=== PATIENT | female | born 1955 | race Caucasian/White ===

== ENCOUNTER → 2016-06-10 | Outpatient (CLI) | payer OTHER ==
[2016-06-10 13:39] LABS: BLOOD UREA NITROGEN 16 mg/dl (7-18); BUN/CREATININE RATIO 19.7 (10-20); CALCIUM 9.6 mg/dl (8.5-10.1); CARBON DIOXIDE 27 mmol/L (21-32); CHLORIDE 103 mmol/L (98-107); CREATININE 0.79 mg/dl (0.60-1.20); GLUCOSE 126 mg/dl (70-99); POTASSIUM 3.7 mmol/L (3.5-5.1); SODIUM 141 mmol/L (136-145)
[2016-06-10 14:06] LABS: ESTIMATED AVERAGE GLUCOSE 148 mg/dl; HA1C FLAG Normal (Normal)
== END | disposition home or self-care (01) ==
LOC: C.LABMFLN 10:57
PROVIDERS: ATTEND Family Medicine
DX: E11.49 Type 2 diabetes mellitus with other diabetic neurological complication (principal)

== ENCOUNTER → 2016-09-16 | Outpatient (CLI) | payer OTHER ==
[2016-09-16 13:54] LABS: ESTIMATED AVERAGE GLUCOSE 163 mg/dl; HA1C FLAG Normal (Normal)
[2016-09-16 16:11] LABS: ALB/GLOB RATIO 1.1 (0.9-2); ALKALINE PHOSPHATASE 65 U/L (45-117); ALT/SGPT 61 U/L (12-78); AST/SGOT 50 U/L (15-37); BLOOD UREA NITROGEN 11 mg/dl (7-18); BUN/CREATININE RATIO 13.2 (10-20); CALCIUM 9.3 mg/dl (8.5-10.1); CARBON DIOXIDE 23 mmol/L (21-32); CHLORIDE 108 mmol/L (98-107); CHOLESTEROL 110 mg/dl (0-200); CHOLESTEROL/HDL RATIO 2.8; CREATININE 0.81 mg/dl (0.60-1.20); GLUCOSE 130 mg/dl (70-99); HDL CHOLESTEROL 39 mg/dl; POTASSIUM 4.1 mmol/L (3.5-5.1); SODIUM 140 mmol/L (136-145)
[2016-09-16 16:19] LABS: LDL CHOLESTEROL CALCULATED 44 mg/dl; TRIGLYCERIDES 136 mg/dl (0-150); VERY LOW DENSITY LIPOPROT CALC 27 mg/dl
== END | disposition home or self-care (01) ==
LOC: C.LABMFLN 13:52
PROVIDERS: ATTEND Family Medicine
DX: E78.2 Mixed hyperlipidemia (principal); I10 Essential (primary) hypertension; E11.49 Type 2 diabetes mellitus with other diabetic neurological complication

== ENCOUNTER → 2017-01-05 | Outpatient (CLI) | payer OTHER ==
[2017-01-05 14:37] LABS: ESTIMATED AVERAGE GLUCOSE 154 mg/dl; HA1C FLAG Normal (Normal)
[2017-01-05 14:44] LABS: ALT/SGPT 57 U/L (12-78); BLOOD UREA NITROGEN 12 mg/dl (7-18); BUN/CREATININE RATIO 14.4 (10-20); CALCIUM 9.2 mg/dl (8.5-10.1); CARBON DIOXIDE 26 mmol/L (21-32); CHLORIDE 107 mmol/L (98-107); CHOLESTEROL 130 mg/dl (0-200); CREATININE 0.83 mg/dl (0.60-1.20); GLUCOSE 166 mg/dl (70-99); POTASSIUM 3.9 mmol/L (3.5-5.1); SODIUM 141 mmol/L (136-145)
[2017-01-05 14:46] LABS: ALKALINE PHOSPHATASE 70 U/L (45-117); AST/SGOT 49 U/L (15-37); CHOLESTEROL/HDL RATIO 3.1; HDL CHOLESTEROL 42 mg/dl; LDL CHOLESTEROL CALCULATED 56 mg/dl; TRIGLYCERIDES 159 mg/dl (0-150); VERY LOW DENSITY LIPOPROT CALC 32 mg/dl
== END | disposition home or self-care (01) ==
LOC: C.LABMFLN 08:14
PROVIDERS: ATTEND Family Medicine
DX: I10 Essential (primary) hypertension (principal); E11.49 Type 2 diabetes mellitus with other diabetic neurological complication

== ENCOUNTER → 2017-04-13 | Outpatient (CLI) | payer OTHER ==
[2017-04-13 13:44] LABS: ESTIMATED AVERAGE GLUCOSE 163 mg/dl; HA1C FLAG Normal (Normal)
[2017-04-13 13:54] LABS: BLOOD UREA NITROGEN 12 mg/dl (7-18); BUN/CREATININE RATIO 13.3 (10-20); CALCIUM 9.8 mg/dl (8.5-10.1); CARBON DIOXIDE 24 mmol/L (21-32); CHLORIDE 104 mmol/L (98-107); CREATININE 0.92 mg/dl (0.60-1.20); GLUCOSE 153 mg/dl (70-99); POTASSIUM 3.8 mmol/L (3.5-5.1); SODIUM 139 mmol/L (136-145)
== END | disposition home or self-care (01) ==
LOC: C.LABMFLN 09:34
PROVIDERS: ATTEND Family Medicine
DX: E11.49 Type 2 diabetes mellitus with other diabetic neurological complication (principal)

== ENCOUNTER → 2017-05-11 | Outpatient (CLI) | payer OTHER | END | disposition home or self-care (01) | LOC: C.LABMFLN 10:04 | PROVIDERS: ATTEND Family Medicine | DX: R30.0 Dysuria (principal) ==

== ENCOUNTER → 2017-07-31 | Outpatient (CLI) | payer OTHER ==
[2017-07-31 12:52] LABS: ALBUMIN 4.1 gm/dl (3.4-5.0); ALT/SGPT 50 U/L (12-78); BLOOD UREA NITROGEN 14 mg/dl (7-18); CALCIUM 9.3 mg/dl (8.5-10.1); CARBON DIOXIDE 25 mmol/L (21-32); CHOLESTEROL 109 mg/dl (0-200); CREATININE 0.79 mg/dl (0.60-1.20); GLUCOSE 131 mg/dl (70-99); SODIUM 138 mmol/L (136-145)
[2017-07-31 12:56] LABS: ALKALINE PHOSPHATASE 65 U/L (45-117); AST/SGOT 50 U/L (15-37); LDL CHOLESTEROL CALCULATED 47 mg/dl; TOTAL PROTEIN 7.8 gm/dl (6.4-8.2)
[2017-07-31 12:59] LABS: HEMOGLOBIN A1C 7.2 % (4.5-5.6)
== END | disposition home or self-care (01) ==
LOC: C.LABMFLN 09:01
PROVIDERS: ATTEND Family Medicine
DX: I10 Essential (primary) hypertension (principal); E11.49 Type 2 diabetes mellitus with other diabetic neurological complication

== ENCOUNTER 2021-05-02 09:44 | Inpatient (IN) ==
[2021-05-02 13:17] LABS: Influenza A virus by PCR Negative (Neg); Influenza B virus by PCR Negative (Neg); RSV by PCR Negative (Neg)
[2021-05-02 13:22] LABS: SARS CoV2 RNA(COVID-19) InHosp POSITIVE (Negative)
[2021-05-02] MEDS ORDERED: dexAMETHasone**PF** 10 MG/ML VIAL IV ONE (14:03)
--- NOTE | 2021-05-02 14:06 | Emergency Department Note ---
Impression & Plan Respiratory failure, COVID-19, Hypoxia, Leukopenia, Thrombocytopenia, Neutropenia ED Provider Note NAME: SAAD MCKEON AGE: 65 SEX: F : 1955 ARRIVES VIA: Walk-In INFORMANT: Patient ED PROVIDER(S): Louis Jane DO CHIEF COMPLAINT: shortness of breath and cough HPI: Patient is a 65-year-old female who presents to the ER for symptoms that started this past weekend. She admits to cough and congestion as well as loss of taste and smell. Shortness of breath has been significantly worsened. She denies any chest pain. No belly pain, nausea, vomiting, or diarrhea. She feels very weak. No dysuria, urgency, or frequency. No other exacerbating or r emitting factors. She is not vaccinated. ROS: See above HPI for pertinent positives & negatives. A total of 10 systems reviewed and were otherwise negative. PAST MEDICAL HISTORY:See Below PAST SURGICAL HISTORY:See Below FAMILY HISTORY:See Below SOCIAL HISTORY:See Below HOME MEDICATIONS:See Below ALLERGIES:See Below VITALS:See Below PHYSICAL EXAMINATION: GENERAL: Sitting up in bed, alert, disheveled, chronically ill-appearing EYE EXAM: normal conjunctiva. OROPHARYNX: no exudate, no erythema, lips, buccal mucosa, and tongue normal and mucous membranes are moist NECK: supple, no nuchal rigidity, no adenopathy, non-tender LUNGS: Clear to auscultation. Normal chest wall mechanics HEART: no murmurs, S1 normal and S2 normal ABDOMEN: abdomen soft, non-tender, normo-active bowel sounds, no masses, no rebound or guarding. UPPER EXTREMITIES: upper extremities are grossly normal. LOWER EXTREMITIES: No pitting edema. Calves are equal bilateral NEURO EXAM: Normal sensorium, cranial nerves II-XII grossly intact, normal speech, no gross weakness of arms, no gross weakness of legs. MEDICAL DECISION MAKING: Patient is a 65-year-old female who presents ER for upper respiratory symptoms who is Covid positive. She is found to be leukopenic and neutropenic with a th rombocytopenia of 88. Moderate neutropenia at 600. BMP was fairly unremarkable. LFTs bilirubin is unremarkable as well. Lipase was normal. Troponin was negative. Patient was Covid positive. She was hypoxic and remained on nasal cannula throughout her stay. She is given fluids and steroids. Chest x-ray was unremarkable. Patient was updated bedside. She is admitted for further work-up for her Covid hypoxic. Triage Nursing notes reviewed. Limited review of prior medical records performed Vital Signs: reviewed and remarkable for hypotensive and hypoxic Differential diagnosis: Differential diagnoses includes but is not limited to pneumonia, bronchitis, COPD/Asthma exacerbation, pneumothorax, pulmonary embolism, congestive heart lily lure, acute coronary syndrome ER treatment provided: See below Diagnostics interpreted by me: ECG: Sinus rhythm rate of 103 Normal axis No PVCs T wave version V1 QTC 421 Cardiac Monitoring: An order was placed for continuous cardiac monitoring. The monitor shows a rate of 101 with sinus rhythm. Laboratory studies: As stated above and show below. Imaging studies: Chest x-ray with pulmonary vascular congestion Consultation(s): Discussed with hospitalist for further evaluation Procedures: none Critical Care: None Past Med/Surg History Medical History Acid reflux Anxiety and depression Benign essential hypertension Blood in stool Cervical radiculopathy Chronic anemia Chronic back pain Chronic pain COVID-19 virus antibody negative Diabetes mellitus type 2 with neurological manifestations Diabetic peripheral neuropathy Generalized osteoarthritis History of kidney stones History of skin cancer Mixed hyperlipidemia Morbid obesity Pernicious anemia Type 2 diabetes mellitus Surgical History History of ankle surgery History of back surgery History of carpal tunnel release of both wrists History of delivery History of cholecystectomy History of colonoscopy Hx of esophagogastroduodenoscopy Family History Sister Family history of diabetes mellitus Father Family history of diabetes mellitus Other Family history of colon cancer in father Social History Smoking Status: Never smoker Second Hand Exposure: No; Hx Alcohol Use: No Hx Substance Use: No Preferred Language: Ghanaian Communication Ability: Effective Visual Impairment: No Limitations Hearing Ability: Normal 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: No Beliefs That Will Affect Care: None marital status: Current Living Situation: Spouse current occupational status: disabled Feels Safe at Home: Yes Childhood Exposure to Second-Hand Smoke: Yes caffeine: Yes during the past year weight has: remained stable Dental Care, Regularly: No Physical Activity Frequency: Does not Exercise Seatbelt Use: always Sunscreen Use: Yes Assistive Devices: Denture - Upper, Denture - Lower and Glasses Allergies Allergies Allergy/AdvReac Type Severity Reaction Status Date / Time Sulfa (Sulfonamide Allergy Unknown throat Verified 04/29/21 15:45 Antibiotics) goes shut acetaminophen [From Percocet] AdvReac Unknown n&v Verified 04/29/21 15:45 Home Meds Home Medications Medication Instructions Recorded Confirmed cetirizine 10 mg tablet 10 mg PO QAM tab 12/26/18 05/02/21 vitamin B complex (B 1 tab PO DAILY 01/30/21 05/02/21 Complex-Vitamin B12) cyanocobalamin (vitamin B-12) 50 1,000 mcg PO DAILY 03/01/21 05/02/21 mcg tablet (Vitamin B-12) mirtazapine 45 mg tablet 45 mg PO QPM 03/01/21 05/02/21 omeprazole 40 mg capsule,delayed 40 mg PO QAM 03/01/21 05/02/21 release valsartan 320 1 tab PO QAM 03/01/21 05/02/21 mg-hydrochlorothiazide 12.5 mg tablet aspirin 81 mg capsule 81 mg PO QAM 03/26/21 05/02/21 duloxetine 30 mg capsule,delayed 30 mg PO HS 03/26/21 05/02/21 release (Cymbalta) glimepiride 1 mg tablet 1 mg PO QPM 03/26/21 05/02/21 melatonin 10 mg tablet 10 mg PO HS 03/26/21 05/02/21 Previous Rx's Medication Instructions Recorded fluticasone propionate 50 2 spray INTRANASAL DAILY #18.2 gm 05/08/20 mcg/actuation nasal spray,suspension potassium chloride 10 mEq 20 meq PO BID #120 cap 09/10/20 capsule,extended release hydrochlorothiazide 12.5 mg tablet 12.5 mg PO QAM #30 tab 12/04/20 ascorbic acid (vitamin C) 250 mg 250 mg PO BID #60 tab 02/22/21 tablet lovastatin 20 mg tablet 20 mg PO HS #90 tab 03/07/21 metformin 1,000 mg tablet 1,000 mg PO BID #180 tab 04/10/21 hydrocodone 7.5 mg-acetaminophen 1 tab PO QID PRN #120 tab 04/29/21 325 mg tablet Results & Data (ED) Vital Signs Vital Signs - 24 hr 05/02/21 09:53 05/02/21 13:41 05/02/21 13:54 Temperature 36.8 C Temperature Source Temporal Artery Scan Pulse Rate 109 H Pulse Rate [Apical] 94 H Pulse Rhythm [Apical] Regular Pulse Strength [Apical] Normal Respiratory Rate 18 22 Respiratory Effort / Characteristics Labored Respiratory Depth Normal Blood Pressure 157/78 H Blood Pressure [Right Arm] 161/82 H Blood Pressure Mean 104 Blood Pressure Mean [Right Arm] 108 Blood Pressure Position [Right Arm] Sitting Pulse Oximetry 92 91 88 L Oxygen Delivery Method Room Air Room Air Room Air Oxygen Flow Rate Sepsis Recent Fever Within 48 Hours No Sepsis New/Unexplained Change in Mental Status No Sepsis Action Taken by Nursing No Action Required 05/02/21 13:58 05/02/21 17:00 Temperature Temperature Source Pulse Rate Pulse Rate [Apical] 102 H Pulse Rhythm [Apical] Pulse Strength [Apical] Respiratory Rate 22 Respiratory Effort / Characteristics Respiratory Depth Blood Pressure Blood Pressure [Right Arm] 172/90 H Blood Pressure Mean Blood Pressure Mean [Right Arm] 117 Blood Pressure Position [Right Arm] Pulse Oximetry 93 Oxygen Delivery Method Nasal Cannula Room Air Oxygen Flow Rate 2 Sepsis Recent Fever Within 48 Hours Sepsis New/Unexplained Change in Mental Status Sepsis Action Taken by Nursing Laboratory Data Result diagrams: 05/02/21 15:26 05/02/21 14:28 Lab Results 05/02/21 05/02/21 05/02/21 Range/Units 10:05 14:28 14:28 WBC Cancelled RBC Cancelled Hgb Cancelled Hct Cancelled MCV Cancelled MCH Cancelled MCHC Cancelled RDW Std Deviation Cancelled RDW Coeff of Ashlee Cancelled Plt Count Cancelled MPV Cancelled Immature Gran % (Auto) Cancelled Neut % (Auto) Cancelled Lymph % (Auto) Cancelled [place] % (Auto) Cancelled Eos % (Auto) Cancelled Baso % (Auto) Cancelled Neut # (Auto) Cancelled Lymph # (Auto) Cancelled [place] # (Auto) Cancelled Eos # (Auto) Cancelled Baso # (Auto) Cancelled Immature Gran # (Auto) Cancelled Absolute Nucleated RBC Cancelled Nucleated RBC % (auto) Cancelled Neutrophils % (Manual) Cancelled Band Neutrophils % Cancelled Lymphocytes % (Manual) Cancelled Prolymphocyte % Cancelled Reactive Lymphs % (Man) Cancelled Monocytes % (Manual) Cancelled Eosinophils % (Manual) Cancelled Basophils % (Manual) Cancelled Metamyelocytes % (Man) Cancelled Myelocytes % (Man) Cancelled Promyelocytes % (Man) Cancelled Blast Cells % (Manual) Cancelled Plasma Cell % (Manual) Cancelled Other Cells % Cancelled Nucleated RBC % Cancelled Neutrophils # (Manual) Cancelled Band Neutrophils # Cancelled Total Absolute Neuts Cancelled Lymphocytes # (Manual) Cancelled Prolymphocyte # Cancelled Reactive Lymphs # Cancelled Total Abs Lymphocytes Cancelled Monocytes # (Manual) Cancelled Eosinophils # (Manual) Cancelled Basophils # (Manual) Cancelled Metamyelocytes # (Man) Cancelled Myelocytes # (Manual) Cancelled Promyelocytes # (Man) Cancelled Blast Cells # (Man) Cancelled Plasma Cell # (Manual) Cancelled Other Cells # Cancelled Nucleated RBCs # (Man) Cancelled Hypersegmented Neuts Cancelled Hyposegmented Neuts Cancelled Hypogranular Neuts Cancelled Large Granular Lymphs Cancelled # Lrg Granular Lymphs Cancelled Hairy Cells Cancelled Smudge Cells Cancelled Toxic Granulation Cancelled Toxic Vacuolation Cancelled Dohle Bodies Cancelled Clem Rods Cancelled Platelet Estimate Cancelled Hypogranular Platelets Cancelled Clumped Platelets Cancelled Giant Platelets Cancelled Platelet Satelliting Cancelled RBC Morphology Cancelled Polychromasia Cancelled Hypochromasia Cancelled Poikilocytosis Cancelled Basophilic Stippling Cancelled Anisocytosis Cancelled Microcytosis Cancelled Macrocytosis Cancelled Spherocytes Cancelled Pappenheimer Bodies Cancelled Sickle Cells Cancelled Target Cells Cancelled Tear Drop Cells Cancelled Ovalocytes Cancelled Stomatocytes Cancelled Carter-Komatke Bodies Cancelled Echinocytes Cancelled Acanthocytes (Spur) Cancelled Rouleaux Cancelled RBC Agglutinates Cancelled Schistocytes Cancelled RBC Morph Comment Cancelled Sezary Cell Cancelled Sodium 136 (136-145) mmol/L Potassium 4.1 (3.5-5.1) mmol/L Chloride 105 (98-107) mmol/L Carbon Dioxide 23 (21-32) mmol/L Anion Gap 8.0 (3-11) BUN 16 (7-18) mg/dl Creatinine 1.02 (0.6-1.2) mg/dl Est Cr Clr Drug Dosing 73.0 ml/min Est GFR ( Amer) 66.4 ml/min Est GFR (Non-Af Amer) 57.3 ml/min BUN/Creatinine Ratio 16.1 (10-20) Glucose 147 H (70-99) mg/dl Calcium 8.6 (8.5-10.1) mg/dl Total Bilirubin 0.7 (0.2-1) mg/dl AST 52 H (15-37) U/L ALT 41 (12-78) U/L Alkaline Phosphatase 64 (45-117) U/L Troponin I < 0.015 (0-0.045) ng/ml C-Reactive Protein (0-0.29) mg/dl Total Protein 8.0 (6.4-8.2) gm/dl Albumin 3.5 (3.4-5.0) gm/dl Globulin 4.5 H (2.5-4.0) gm/dl Albumin/Globulin Ratio 0.8 L (0.9-2) Lipase 116 (73-393) U/L SARS-CoV-2 (PCR) POSITIVE A* (Negative) Influenza Type A (PCR) Negative (Neg) Influenza Type B (PCR) Negative (Neg) RSV (RT-PCR) Negative (Neg) 05/02/21 05/02/21 Range/Units 14:28 15:26 WBC 1.33 L RBC 3.83 L Hgb 11.1 L Hct 33.4 L MCV 87.2 MCH 29.0 MCHC 33.2 RDW Std Deviation 50.5 H RDW Coeff of Ashlee 15.6 H Plt Count 88 L MPV 9.6 Immature Gran % (Auto) 0.0 Neut % (Auto) 50.4 Lymph % (Auto) 38.3 [place] % (Auto) 11.3 Eos % (Auto) 0.0 Baso % (Auto) 0.0 Neut # (Auto) 0.67 L* Lymph # (Auto) 0.51 L [place] # (Auto) 0.15 Eos # (Auto) 0.00 Baso # (Auto) 0.00 Immature Gran # (Auto) 0.00 Absolute Nucleated RBC Nucleated RBC % (auto) Neutrophils % (Manual) Band Neutrophils % Lymphocytes % (Manual) Prolymphocyte % Reactive Lymphs % (Man) Monocytes % (Manual) Eosinophils % (Manual) Basophils % (Manual) Metamyelocytes % (Man) Myelocytes % (Man) Promyelocytes % (Man) Blast Cells % (Manual) Plasma Cell % (Manual) Other Cells % Nucleated RBC % Neutrophils # (Manual) Band Neutrophils # Total Absolute Neuts Lymphocytes # (Manual) Prolymphocyte # Reactive Lymphs # Total Abs Lymphocytes Monocytes # (Manual) Eosinophils # (Manual) Basophils # (Manual) Metamyelocytes # (Man) Myelocytes # (Manual) Promyelocytes # (Man) Blast Cells # (Man) Plasma Cell # (Manual) Other Cells # Nucleated RBCs # (Man) Hypersegmented Neuts Hyposegmented Neuts Hypogranular Neuts Large Granular Lymphs # Lrg Granular Lymphs Hairy Cells Smudge Cells Toxic Granulation Toxic Vacuolation Dohle Bodies Clem Rods Platelet Estimate Decreased L Hypogranular Platelets Clumped Platelets Giant Platelets Platelet Satelliting RBC Morphology Polychromasia Hypochromasia Poikilocytosis Basophilic Stippling Anisocytosis Microcytosis Macrocytosis Spherocytes Pappenheimer Bodies Sickle Cells Target Cells Tear Drop Cells Ovalocytes 1+ Stomatocytes Carter-Komatke Bodies Echinocytes Acanthocytes (Spur) Rouleaux RBC Agglutinates Schistocytes RBC Morph Comment Sezary Cell Sodium (136-145) mmol/L Potassium (3.5-5.1) mmol/L Chloride (98-107) mmol/L Carbon Dioxide (21-32) mmol/L Anion Gap (3-11) BUN (7-18) mg/dl Creatinine (0.6-1.2) mg/dl Est Cr Clr Drug Dosing ml/min Est GFR ( Amer) ml/min Est GFR (Non-Af Amer) ml/min BUN/Creatinine Ratio (10-20) Glucose (70-99) mg/dl Calcium (8.5-10.1) mg/dl Total Bilirubin (0.2-1) mg/dl AST (15-37) U/L ALT (12-78) U/L Alkaline Phosphatase (45-117) U/L Troponin I (0-0.045) ng/ml C-Reactive Protein 1.40 H (0-0.29) mg/dl Total Protein (6.4-8.2) gm/dl Albumin (3.4-5.0) gm/dl Globulin (2.5-4.0) gm/dl Albumin/Globulin Ratio (0.9-2) Lipase (73-393) U/L SARS-CoV-2 (PCR) (Negative) Influenza Type A (PCR) (Neg) Influenza Type B (PCR) (Neg) RSV (RT-PCR) (Neg) Administered Medications Discontinued Medications Dexamethasone Sodium Phosphate (DexamethasonePf 10 Mg/Ml Vial) 6 mg IV NOW ONE Stop: 05/02/21 14:04 Last Admin: 05/02/21 14:51 Dose: 6 mg Documented by: [id number] Sodium Chloride (Nss) 500 mls @ 999 mls/hr IV .Q31M ONE Stop: 05/02/21 14:48 Last Infusion: 05/02/21 17:00 Dose: 0 mls/hr Documented by: [id number] Admin: 05/02/21 14:51 Dose: 999 mls/hr Documented by: [id number] Imaging Data Radiologist's Impression: Chest X-Ray 05/02/21 14:03 XR chest 1V portable CLINICAL HISTORY: Chest Pain. Cough and shortness of breath COMPARISON STUDY: No previous studies for comparison. TECHNIQUE: 1 view of the chest FINDINGS: Single frontal view of the chest demonstrates the cardiomediastinal silhouette to be within normal limits. The lungs are clear of alveolar opacities. There is no evidence for pleural effusion. There is no evidence for vascular congestion. There is no acute osseous pathology. IMPRESSION: No acute cardiopulmonary disease. ACT 112: Negative or not required by law. Electronically signed by: Genaro Wallis M.D. 05/02/2021 2:32 PM Discharge Plan Visit Data Chief Complaint: Shortness of Breath/Dyspnea Stated Complaint: SOB, COUGHING UP BLOOD, COVID TEST PAST TUE, ED Provider: Louis Jane Discharge Problem: Respiratory failure, COVID-19, Hypoxia, Leukopenia, Thrombocytopenia, Neutropen ia Forms Stand Alone Forms: My [facility] Prescriptions Prescriptions: No Action fluticasone propionate 50 mcg/actuation spray,suspension 2 spray intranasal DAILY Qty: 18.2 RF: 5 potassium chloride 10 mEq capsule, extended release 20 meq PO BID Qty: 120 RF: 11 hydrochlorothiazide 12.5 mg tablet 12.5 mg PO QAM Qty: 30 RF: 5 lovastatin 20 mg tablet 20 mg PO HS Qty: 90 RF: 1 metformin 1,000 mg tablet 1,000 mg PO BID Qty: 180 RF: 3 hydrocodone-acetaminophen 7.5-325 mg tablet 1 tab PO QID PRN (Reason: pain) Qty: 120 RF: 0 vitamin B complex [B Complex-Vitamin B12] Tablet 1 tab PO DAILY RF: 0 ascorbic acid (vitamin C) 250 mg tablet 250 mg PO BID Qty: 60 RF: 1 cetirizine 10 mg tablet 10 mg PO QAM RF: 0 mirtazapine 45 mg tablet 45 mg PO QPM RF: 0 Vitamin B-12 50 mcg Tablet 1,000 mcg PO DAILY RF: 0 omeprazole 40 mg capsule,delayed release(DR/EC) 40 mg PO QAM RF: 0 valsartan-hydrochlorothiazide 320-12.5 mg tablet 1 tab PO QAM RF: 0 duloxetine [Cymbalta] 30 mg Capsule,Delayed Release(Dr/Ec) 30 mg PO HS RF: 0 melatonin 10 mg Tablet 10 mg PO HS RF: 0 aspirin 81 mg Capsule 81 mg PO QAM RF: 0 glimepiride 1 mg tablet 1 mg PO QPM RF: 0 Referrals Referrals: Steve Pierre MD [Primary Care Provider] - Discharge Problem: Respiratory failure Qualifiers: Chronicity: acute Respiratory failure complication: hypoxia Qualified Code(s): J96.01 - Acute respiratory failure with hypoxia Leukopenia Qualifiers: Leukopenia type: unspecified Qualified Code(s): D72.819 - Decreased white blood cell count, unspecified Neutropenia Qualifiers: Neutropenia type: unspecified Qualified Code(s): D70.9 - Neutropenia, unspecified
[2021-05-02] MEDS ORDERED: SODIUM CHLORIDE 0.9% 500 ML IV ONE (14:18)
--- NOTE | 2021-05-02 14:33 | XRay Report ---
XR chest 1V portable CLINICAL HISTORY: Chest Pain. Cough and shortness of breath COMPARISON STUDY: No previous studies for comparison. TECHNIQUE: 1 view of the chest FINDINGS: Single frontal view of the chest demonstrates the cardiomediastinal silhouette to be within normal li mits. The lungs are clear of alveolar opacities. There is no evidence for pleural effusion. There is no evidence for vascular congestion. There is no acute osseous pathology. IMPRESSION: No acute cardiopulmonary disease. ACT 112: Negative or not required by law. Electronically signed by: Genaro Wallis M.D. 05/02/2021 2:32 PM
[2021-05-02 15:03] LABS: Alanine Aminotransferase 41 U/L (12-78); Albumin Level 3.5 gm/dl (3.4-5.0); Aspartate Aminotransferase 52 U/L (15-37); BUN Creatinine Ratio 16.1 (10-20); Blood Urea Nitrogen 16 mg/dl (7-18); Calcium 8.6 mg/dl (8.5-10.1); Carbon Dioxide 23 mmol/L (21-32); Chloride 105 mmol/L (98-107); Est GFR (African American) 66.4 ml/min; Est GFR (Non-African American) 57.3 ml/min; Glucose 147 mg/dl (70-99); Lipase 116 U/L (73-393); Potassium 4.1 mmol/L (3.5-5.1); Sodium 136 mmol/L (136-145)
[2021-05-02 15:08] LABS: Albumin Globulin Ratio 0.8 (0.9-2); Alkaline Phosphatase 64 U/L (45-117); Bilirubin,Total 0.7 mg/dl (0.2-1); Globulin 4.5 gm/dl (2.5-4.0); Troponin I < 0.015 ng/ml (0-0.045)
[2021-05-02 15:43] LABS: Hematocrit (blood only) 33.4 % (37-47); Hemoglobin 11.1 g/dL (12.0-16.0); Mean Corpuscular Hgb Conc 33.2 g/dL (32-36); Mean Corpuscular Volume 87.2 fL (80-100); RDW Coefficient of Variation 15.6 % (11.5-14.5); RDW Standard Deviation 50.5 fL (36.4-46.3); Red Blood Count 3.83 M/uL (4.2-5.4); White Blood Count 1.33 K/uL (4.8-10.8)
[2021-05-02 16:08] LABS: Mean Platelet Volume 9.6 fL (7.4-10.4); Platelet Count 88 K/uL (130-400)
[2021-05-02 16:13] LABS: Lymphocytes # (auto) 0.51 K/uL (1.2-3.4); Lymphocytes % (auto) 38.3 %; Monocytes # (auto) 0.15 K/uL (0.11-0.59); Monocytes % (auto) 11.3 %; Neutrophils # (auto) 0.67 K/uL (1.4-6.5); Neutrophils % (auto) 50.4 %; Ovalocytes 1+; Platelet Estimate Decreased (Normal)
--- NOTE | 2021-05-02 17:11 | Electrocardiogram Report ---
Test Reason : Blood Pressure : / mmHG Vent. Rate : 103 BPM Atrial Rate : 103 BPM P-R Int : 178 ms QRS Dur : 072 ms QT Int : 322 ms P-R-T Axes : 065 065 048 degrees QTc Int : 421 ms Sinus tachycardia Abnormal ECG When compared with ECG of 09-SEP-2004 15:02, Nonspecific T wave abnormality no longer evident in Lateral leads Confirmed by Saroj Yu ([id number]) on 05/02/2021 5:10:26 PM Referred By: REFERRED SELF Confirmed By:Kevin Yu
[2021-05-02] MEDS ORDERED: REMDESIVIR 200 MG in SODIUM CHLORIDE 0.9% 210 ML IV ONE (18:00)
--- NOTE | 2021-05-02 19:31 | History & Physical Report ---
Date of Service May 02, 2021 Assessment & Plan (1) COVID-19: Plan: Patient is unvaccinated. Patient was on nasal canula. will start remdesevir and dexamethasone. will monitor for 24-48 hours. If no signs of worsening, patient may be discharged. placed on dvt proph. (2) Chronic anemia: Plan: will monitor hemoglobin (3) Type 2 diabetes mellitus: Plan: consult glycemic control (4) Morbid obesity: Plan: recommend lifestyle changes (5) Benign essential hypertension: Plan: resume home meds (6) Hypoxia: Plan: as above History of Present Illness Chief Complaint: SOB Primary Care Provider: Steve Pierre MD Patient is unvaccinated. She reports feeling general malaise and SOB on Thursday. This was accompanied by loss of taste of smell. This has been gradually worsening. Allergies Allergy/AdvReac Type Severity Reaction Status Date / Time Sulfa (Sulfonamide Allergy Unknown throat Verified 04/29/21 15:45 Antibiotics) goes shut acetaminophen [From Percocet] AdvReac Unknown n&v Verified 04/29/21 15:45 Home Medications Medication Instructions Recorded Confirmed Type cetirizine 10 mg tablet 10 mg PO QAM tab 12/26/18 05/02/21 History fluticasone propionate 50 2 spray INTRANASAL DAILY #18.2 gm 05/08/20 05/02/21 Rx mcg/actuation nasal spray,suspension potassium chloride 10 mEq 20 meq PO BID #120 cap 09/10/20 05/02/21 Rx capsule,extended release hydrochlorothiazide 12.5 mg tablet 12.5 mg PO QAM #30 tab 12/04/20 05/02/21 Rx vitamin B complex (B 1 tab PO DAILY 01/30/21 05/02/21 History Complex-Vitamin B12) ascorbic acid (vitamin C) 250 mg 250 mg PO BID #60 tab 02/22/21 05/02/21 Rx tablet cyanocobalamin (vitamin B-12) 50 1,000 mcg PO DAILY 03/01/21 05/02/21 History mcg tablet (Vitamin B-12) mirtazapine 45 mg tablet 45 mg PO QPM 03/01/21 05/02/21 History omeprazole 40 mg capsule,delayed 40 mg PO QAM 03/01/21 05/02/21 History release valsartan 320 1 tab PO QAM 03/01/21 05/02/21 History mg-hydrochlorothiazide 12.5 mg tablet lovastatin 20 mg tablet 20 mg PO HS #90 tab 03/07/21 05/02/21 Rx aspirin 81 mg capsule 81 mg PO QAM 03/26/21 05/02/21 History duloxetine 30 mg capsule,delayed 30 mg PO HS 03/26/21 05/02/21 History release (Cymbalta) glimepiride 1 mg tablet 1 mg PO QPM 03/26/21 05/02/21 History melatonin 10 mg tablet 10 mg PO HS 03/26/21 05/02/21 History metformin 1,000 mg tablet 1,000 mg PO BID #180 tab 04/10/21 05/02/21 Rx hydrocodone 7.5 mg-acetaminophen 1 tab PO QID PRN #120 tab 04/29/21 05/02/21 Rx 325 mg tablet Past Med/Surg History Medical History (Updated 05/02/21 @ 22:44 by Luis Vela) Acid reflux Anxiety and depression Benign essential hypertension Blood in stool PT REPORTS BLOOD IN STOOL, SOB ON EXERTION, NEAR PASSING OUT EPISODES, LOW BL OOD COUNT - PT REPORTS REASON FOR UPCOMING PROCEDURE ARE TO RULE OUT BLEEDING ULCER Cervical radiculopathy HERNIATED DISC IN NECK Chronic anemia Chronic back pain Chronic pain COVID-19 virus antibody negative PT REPORTS HAD COVID ANTIBODY TEST IN DECEMBER 2020 AND NEGATIVE Diabetes mellitus type 2 with neurological manifestations Diabetic peripheral neuropathy Generalized osteoarthritis History of kidney stones History of skin cancer Mixed hyperlipidemia Morbid obesity Pernicious anemia iron transfusion at present Type 2 diabetes mellitus Surgical History History of ankle surgery RIGHT History of back surgery lumbar fusion History of carpal tunnel release of both wrists History of delivery History of cholecystectomy History of colonoscopy Hx of esophagogastroduodenoscopy Family History Sister Family history of diabetes mellitus Father Family history of diabetes mellitus Other Family history of colon cancer in father Social History Smoking Status: Never smoker Second Hand Exposure: No; Hx Alcohol Use: No Hx Substance Use: No Preferred Language: Danish Communication Ability: Effective Visual Impairment: No Limitations Hearing Ability: Normal Platen Builder Up Required: No Beliefs That Will Affect Care: None marital status: Current Living Situation: Spouse current occupational status: disabled Feels Safe at Home: Yes Childhood Exposure to Second-Hand Smoke: Yes caffeine: Yes during the past year weight has: remained stable Dental Care, Regularly: No Physical Activity Frequency: Does not Exercise Seatbelt Use: always Sunscreen Use: Yes Assistive Devices: Denture - Upper, Denture - Lower and Glasses Review of Systems Constitutional: no fever and no sweats Eyes: no blind spots and no diplopia Ear, Nose, Mouth, Throat: no ear pain and no ear trauma Respiratory: + cough and + dyspnea Cardiovascular: no chest pain Gastrointestinal: no abdominal pain Genitourinary: no dysuria Musculoskeletal: no back pain Integumentary: no acne Neurologic: no gait abnormality Psychiatric: no behavioral changes Endocrine: + fatigue Hematologic / Lymphatic: no easy bleeding Allergy / Immunological: no GI upset with certain foods Physical Exam Constitutional: well developed and well nourished; no acute distress Eyes: PERRL, conjunctivae normal, anicteric sclerae ENMT: external ear and nose normal, oropharynx normal Neck: trachea midline, no thyromegaly Cardiovascular: RRR, no murmur, no edema Gastrointestinal (Abdomen): normal bowel sounds, soft, nontender, no hepatosplenomegaly Musculoskeletal: no cyanosis or clubbing, extremities motor strength 5/5 Skin: no rashes, warm and dry Neurologic: PERRL, EOMI, accommodation nl, no face palsy, no dysarthria Psychiatric: A+Ox3, euthymic affect Lymphatic: no cervical or axillary lymphadenopathy Results & Data Results & Data ([facility]) Vital Signs (Past 12 Hours) Vital Signs Temp Pulse Pulse Resp BP BP Pulse Ox 05/02/21 19:00 95 H 20 180/75 H 94 05/02/21 17:00 102 H 22 172/90 H 93 05/02/21 13:54 88 L 05/02/21 13:41 94 H 22 161/82 H 91 05/02/21 09:53 36.8 C 109 H 18 157/78 H 92 PG Care Time/CCT Total # of Minutes Spent Total Time Spent with Patient: Total time spent is greater than 50% in coordination of care (as documented) at patient's floor/unit and/or counseling patient: Coding Level of Care Code 69693 Initial Inpt Care Lvl 3 Diagnoses COVID-19 U07.1 Chronic anemia D64.9 Type 2 diabetes mellitus E11.9 Morbid obesity E66.01 Benign essential hypertension I10 Hypoxia R09.02
[2021-05-02] MEDS: SODIUM CHLORIDE 0.9% 10ML FLUSH IV SCH (21:00)
[2021-05-02] MEDS ORDERED: PHARMACY GLYCEMIC MGMT CONSULT PRN (22:45)
[2021-05-02] MEDS: ENOXAPARIN INJ 60 MG/0.6 ML SYR SQ SCH (23:36)
[2021-05-02] MEDS: LOVASTATIN 20 MG TAB PO SCH (23:36)
[2021-05-02] MEDS: MIRTAZAPINE SOLTAB 15 MG PO SCH (23:37)
[2021-05-02] MEDS: DULoxetine HCL 30 MG CAP PO SCH (23:37)
[2021-05-02] MEDS: MELATONIN 3 MG TAB PO SCH (23:37)
[2021-05-02] MEDS ORDERED: GLUCAGON FOR INJ 1 MG VIAL IM PRN (23:45)
[2021-05-02] MEDS ORDERED: GLUCOSE 40% GEL 15 GM TUBE PO PRN (23:45)
[2021-05-02] MEDS ORDERED: DEXTROSE 50% 50 ML SYRINGE IV PRN (23:45)
[2021-05-02] MEDS ORDERED: CARBOHYDRATES FOR HYPOGLYCEMIA PO PRN (23:45)
[2021-05-02] MEDS ORDERED: GLUCOSE 10 TABS/TUBE PO PRN (23:45)
[2021-05-03] MEDS: INSULIN ASPART 100 UNITS/ML 3 ML PEN SC SCH ×5 (01:11→22:26)
[2021-05-03] MEDS: ASCORBIC ACID 500 MG TAB PO SCH ×3 (01:12→22:06)
[2021-05-03] MEDS ORDERED: INSULIN ASPART 100 UNITS/ML 3 ML PEN SC SCH ×2 (03:05→04:00)
[2021-05-03] MEDS ORDERED: INSULIN GLARGINE SOLOSTAR 100 UNITS/ML 3 ML PEN SC ONE ×2 (03:15)
[2021-05-03 07:34] LABS: Creatinine Clr Calc Pharmacy 85.5 ml/min; Est GFR (African American) 80.5 ml/min; Est GFR (Non-African American) 69.4 ml/min
[2021-05-03] MEDS ORDERED: hydroCHLOROthiazide 25 MG TAB PO SCH (09:00)
[2021-05-03] MEDS: FLUTICASONE PROPIONATE NA SPR 16 GM BTL SCH (09:05)
[2021-05-03] MEDS: ASPIRIN 81 MG ECTAB PO SCH (09:11)
[2021-05-03] MEDS: CETIRIZINE HCL 10 MG TABLET PO SCH (09:11)
[2021-05-03] MEDS: CYANOCOBALAMIN 500 MCG TABLET (VITAMIN B-12) PO SCH (09:12)
[2021-05-03] MEDS: VALSARTAN 80 MG TAB PO SCH (09:14)
[2021-05-03] MEDS: PANTOprazole 40 MG TAB PO SCH (09:16)
[2021-05-03] MEDS: VITAMIN B COMPLEX TAB PO SCH (09:17)
[2021-05-03] MEDS: ENOXAPARIN INJ 60 MG/0.6 ML SYR SQ SCH ×2 (09:18→22:06)
[2021-05-03] MEDS: INSULIN HUMAN NPH SC SCH (10:53)
[2021-05-03] MEDS: dexAMETHasone 6 MG in SYRINGE 0 ML IV SCH (10:59)
[2021-05-03 11:15] LABS: Hematocrit (blood only) 35.4 % (37-47); Hemoglobin 11.8 g/dL (12.0-16.0); Mean Corpuscular Hgb Conc 33.3 g/dL (32-36); Mean Platelet Volume 9.9 fL (7.4-10.4); Platelet Count 106 K/uL (130-400); RDW Coefficient of Variation 15.3 % (11.5-14.5); RDW Standard Deviation 49.4 fL (36.4-46.3); Red Blood Count 4.07 M/uL (4.2-5.4); White Blood Count 1.16 K/uL (4.8-10.8)
[2021-05-03 11:20] LABS: Albumin Level 3.3 gm/dl (3.4-5.0); BUN Creatinine Ratio 22.1 (10-20); Calcium 8.7 mg/dl (8.5-10.1); Creatinine Clr Calc Pharmacy 89.7 ml/min; Est GFR (African American) 85.2 ml/min; Est GFR (Non-African American) 73.5 ml/min; Potassium 3.7 mmol/L (3.5-5.1)
[2021-05-03 11:23] LABS: Albumin Globulin Ratio 0.7 (0.9-2); Bilirubin,Total 0.5 mg/dl (0.2-1); C Reactive Protein 1.17 mg/dl (0-0.29); Globulin 4.6 gm/dl (2.5-4.0); Total Protein 7.9 gm/dl (6.4-8.2)
--- NOTE | 2021-05-03 11:23 | Pharmacy Report ---
Pharmacy Glycemic Short Note 2 - Date of Service May 03, 2021 - Glycemic Short BSG Results (Last 24 hours): 05/02/21 05/03/21 05/03/21 14:28 01:05 02:55 Glucose 147 H POC Glucose 277 H 242 H 05/03/21 05/03/21 03:47 07:47 Glucose POC Glucose 217 H 164 H OUTPATIENT ANTIDIABETIC REGIMEN: * metformin, glimepiride * A1c 5.8% 01/23/21 ASSESSMENT: * 65 year old admitted with COVID. Started on Remdesivir and steroids * Anticipate steroid induced hyperglycemia. BSGs trending up to upper 200s last evening from first dose of dexamethasone * Plan to initiate NPH ~0.3 units/kg daily to help cover dexamethasone 6 mg IV daily * Continue stress of 3 for novolog PLAN FOR INPATIENT GLYCEMIC CONTROL: * Hold outpatient oral diabetes medications * Basal insulin * NPH 35 units daily - to cover dexamethasone * Bolus insulin * NovoLog per scale ACHS or Q6hrs while NPO * Goal Range: Low 110 mg/dL - High 140 mg/dL * Correction Factor: 15 mg/dL/unit * Nutritional / Prandial insulin per carb ratio of 1 unit per 5 grams CHO consumed PLAN FOR DISCHARGE: * TBD
[2021-05-03 11:32] LABS: Lymphocytes # (auto) 0.45 K/uL (1.2-3.4); Lymphocytes % (auto) 38.8 %; Monocytes # (auto) 0.12 K/uL (0.11-0.59); Monocytes % (auto) 10.3 %; Neutrophils # (auto) 0.59 K/uL (1.4-6.5); Neutrophils % (auto) 50.9 %
[2021-05-03] MEDS ORDERED: ACETAMINOPHEN 325 MG TAB PO PRN (13:26)
[2021-05-03] MEDS: HYDROCODONE/ACETAMINOPHEN 7.5/325MG TAB PO PRN (14:38)
[2021-05-03] MEDS ORDERED: LOPERAMIDE HCL 2 MG CAP PO PRN (19:41)
[2021-05-03] MEDS ORDERED: hydrALAZINE HCL 20 MG/ML VIAL IV STA (19:44)
[2021-05-03] MEDS ORDERED: hydrALAZINE HCL 20 MG/ML VIAL IV PRN (19:44)
[2021-05-03] MEDS ORDERED: ALBUT/IPRATROP 3MG/0.5MG NEB 3 ML VIAL NEB PRN (19:45)
[2021-05-03] MEDS: REMDESIVIR 100 MG in SODIUM CHLORIDE 0.9% 230 ML IV SCH (22:06)
[2021-05-03] MEDS: DULoxetine HCL 30 MG CAP PO SCH (22:06)
[2021-05-03] MEDS: MIRTAZAPINE SOLTAB 15 MG PO SCH (22:07)
[2021-05-03] MEDS: SODIUM CHLORIDE 0.9% 10ML FLUSH IV SCH (22:07)
[2021-05-03] MEDS: LOVASTATIN 20 MG TAB PO SCH (22:07)
[2021-05-03] MEDS: MELATONIN 3 MG TAB PO SCH (22:11)
--- NOTE | 2021-05-04 00:03 | Hospitalist Progress Note ---
Date of Service May 03, 2021 Late entry for 05/03/21 DOS Assessment & Plan (1) COVID-19: Plan: Presented with 1 week of symptoms of worsening diarrhea, cough, and SOB, found to be hypoxic on arrival CXR negative but with crackles on exam, hypoxia, seems consistent with COVID-19 Pneumonia albeit early. Patient is unvaccinated. Remains on 1-2LNC supplemental O2 CRP low at 1 -continue remdesevir x 5 days -continue dexamethasone 6mg daily x 10 days -added on flutter valve, IS -add on scheduled DUonebs -encouraged side sleep or prone positioning -continued stay to ensure not going to worsen around day 8-10 -follow CBC, CMP, CRP in AM (2) Hypoxia: Plan: as above, secondary to COVID-19 PNA (3) Chronic anemia: Plan: With chronic pancytopenia hgb 11.8 with thrombocytopenia slightly improved since admission with chronic leukopenia follow CBC and if pancytopenia persists as outpt--> needs further workup (4) Benign essential hypertension: Plan: BPs quite high, could be due to steroids give hydralazine 10mg IV x 1 now and then prn SBP>180 after that continue home valsartan and increase home HCTZ to 25mg daily (up from 12.5) (5) Type 2 diabetes mellitus: Plan: last hgbA1c in prediabetes range in 12/2020 with hyperglycemia here secondary to steroids Pharmacy managing with NPH, Novolog check A1C in AM (6) Morbid obesity: Plan: recommend lifestyle changes BMI 44.1 (7) Chronic back pain: Plan: restart home chronic hydrocodone prn (8) GERD (gastroesophageal reflux disease): Plan: continue PPI (9) Recurrent major depressive disorder, in remission: Plan: stable continue duloxetine, mirtazapine melatonin for sleep (10) Mixed hyperlipidemia: Plan: continue statin Plan: DVT Proph-Lovenox Dispo-continued stay to ensure not worsening at the day 8-9 chula of illness coming up tomorrow Admission and Anticipated Discharge Date Admission Date: May 02, 2021 Subjective Pt feeling better, less SOB. Was on 1LNC O2 with POx 98% when I saw her. Has chronic diarrhea but having more loose stools since having COVID. Was requesting her home hydrocodone for chronic back pain. Denies chest pain or other problems. Eating well. Tele with NSR rates 80-90s Review of Systems Review of Systems: All systems reviewed & are unremarkable except as noted in HPI & below Physical Exam Constitutional: WD/WN, vitals as above + obese Eyes: + anicteric sclerae Neck: trachea midline, no thyromegaly Respiratory: normal respiratory effort Auscultation: + crackles (lower lung minor bilat); no rhonchi and no wheezes Cardiovascular: RRR, no murmur, no edema Chest (Breasts): Chest: normal inspection of chest Gastrointestinal (Abdomen): normal bowel sounds, soft, nontender, no hepatosplenomegaly Musculoskeletal: Extremities: extremities normal to inspection; no cyanosis and no clubbing Skin: no rashes, warm and dry Neurologic: moves all extremities and awake; no focal motor deficits Psychiatric: A+Ox3, euthymic affect Lymphatic: no lymphedema Results & Data Results & Data ([facility]) Vital Signs (Past 12 Hours) Vital Signs Temp Pulse Pulse Resp BP Pulse Ox 05/03/21 23:23 79 25 H 163/73 H 96 05/03/21 22:03 80 22 163/73 H 96 05/03/21 17:23 37.0 C 90 22 179/101 H 96 05/03/21 14:47 66 66 24 144/71 H 94 05/03/21 14:39 89 24 166/101 H 96 Laboratory Results 05/04/21 05/03/21 05/03/21 Range/Units 00:21 22:17 18:31 WBC (4.8-10.8) K/uL RBC (4.2-5.4) M/uL Hgb (12.0-16.0) g/dL Hct (37-47) % MCV (80-100) fL MCH (25-34) pg MCHC (32-36) g/dL RDW Std Deviation (36.4-46.3) fL RDW Coeff of Ashlee (11.5-14.5) % Plt Count (130-400) K/uL MPV (7.4-10.4) fL Immature Gran % (Auto) % Neut % (Auto) % Lymph % (Auto) % [place] % (Auto) % Eos % (Auto) % Baso % (Auto) % Neut # (Auto) (1.4-6.5) K/uL Lymph # (Auto) (1.2-3.4) K/uL [place] # (Auto) (0.11-0.59) K/uL Eos # (Auto) (0-0.5) K/uL Baso # (Auto) (0-0.2) K/uL Immature Gran # (Auto) (0.00-0.02) K/uL Sodium (136-145) mmol/L Potassium (3.5-5.1) mmol/L Chloride (98-107) mmol/L Carbon Dioxide (21-32) mmol/L Anion Gap (3-11) BUN (7-18) mg/dl Creatinine (0.6-1.2) mg/dl Est Cr Clr Drug Dosing ml/min Est GFR ( Amer) ml/min Est GFR (Non-Af Amer) ml/min BUN/Creatinine Ratio (10-20) Glucose (70-99) mg/dl POC Glucose 222 H 248 H 248 H (70-99) mg/dl Calcium (8.5-10.1) mg/dl Total Bilirubin (0.2-1) mg/dl AST (15-37) U/L ALT (12-78) U/L Alkaline Phosphatase (45-117) U/L C-Reactive Protein (0-0.29) mg/dl Total Protein (6.4-8.2) gm/dl Albumin (3.4-5.0) gm/dl Globulin (2.5-4.0) gm/dl Albumin/Globulin Ratio (0.9-2) 05/03/21 05/03/21 05/03/21 Range/Units 13:31 07:47 06:50 WBC (4.8-10.8) K/uL RBC (4.2-5.4) M/uL Hgb (12.0-16.0) g/dL Hct (37-47) % MCV (80-100) fL MCH (25-34) pg MCHC (32-36) g/dL RDW Std Deviation (36.4-46.3) fL RDW Coeff of Ashlee (11.5-14.5) % Plt Count (130-400) K/uL MPV (7.4-10.4) fL Immature Gran % (Auto) % Neut % (Auto) % Lymph % (Auto) % [place] % (Auto) % Eos % (Auto) % Baso % (Auto) % Neut # (Auto) (1.4-6.5) K/uL Lymph # (Auto) (1.2-3.4) K/uL [place] # (Auto) (0.11-0.59) K/uL Eos # (Auto) (0-0.5) K/uL Baso # (Auto) (0-0.2) K/uL Immature Gran # (Auto) (0.00-0.02) K/uL Sodium 139 (136-145) mmol/L Potassium 3.7 (3.5-5.1) mmol/L Chloride 110 H (98-107) mmol/L Carbon Dioxide 24 (21-32) mmol/L Anion Gap 5.0 (3-11) BUN 18 (7-18) mg/dl Creatinine 0.83 (0.6-1.2) mg/dl Est Cr Clr Drug Dosing 89.7 ml/min Est GFR ( Amer) 85.2 ml/min Est GFR (Non-Af Amer) 73.5 ml/min BUN/Creatinine Ratio 22.1 H (10-20) Glucose 177 H (70-99) mg/dl POC Glucose 268 H 164 H (70-99) mg/dl Calcium 8.7 (8.5-10.1) mg/dl Total Bilirubin 0.5 (0.2-1) mg/dl AST 42 H (15-37) U/L ALT 37 (12-78) U/L Alkaline Phosphatase 61 (45-117) U/L C-Reactive Protein 1.17 H (0-0.29) mg/dl Total Protein 7.9 (6.4-8.2) gm/dl Albumin 3.3 L (3.4-5.0) gm/dl Globulin 4.6 H (2.5-4.0) gm/dl Albumin/Globulin Ratio 0.7 L (0.9-2) 05/03/21 05/03/21 05/03/21 Range/Units 06:50 06:50 03:47 WBC 1.16 L (4.8-10.8) K/uL RBC 4.07 L (4.2-5.4) M/uL Hgb 11.8 L (12.0-16.0) g/dL Hct 35.4 L (37-47) % MCV 87.0 (80-100) fL MCH 29.0 (25-34) pg MCHC 33.3 (32-36) g/dL RDW Std Deviation 49.4 H (36.4-46.3) fL RDW Coeff of Ashlee 15.3 H (11.5-14.5) % Plt Count 106 L (130-400) K/uL MPV 9.9 (7.4-10.4) fL Immature Gran % (Auto) 0.0 % Neut % (Auto) 50.9 % Lymph % (Auto) 38.8 % [place] % (Auto) 10.3 % Eos % (Auto) 0.0 % Baso % (Auto) 0.0 % Neut # (Auto) 0.59 L* (1.4-6.5) K/uL Lymph # (Auto) 0.45 L (1.2-3.4) K/uL [place] # (Auto) 0.12 (0.11-0.59) K/uL Eos # (Auto) 0.00 (0-0.5) K/uL Baso # (Auto) 0.00 (0-0.2) K/uL Immature Gran # (Auto) 0.00 (0.00-0.02) K/uL Sodium (136-145) mmol/L Potassium (3.5-5.1) mmol/L Chloride (98-107) mmol/L Carbon Dioxide (21-32) mmol/L Anion Gap (3-11) BUN (7-18) mg/dl Creatinine 0.87 (0.6-1.2) mg/dl Est Cr Clr Drug Dosing 85.5 ml/min Est GFR ( Amer) 80.5 ml/min Est GFR (Non-Af Amer) 69.4 ml/min BUN/Creatinine Ratio (10-20) Glucose (70-99) mg/dl POC Glucose 217 H (70-99) mg/dl Calcium (8.5-10.1) mg/dl Total Bilirubin (0.2-1) mg/dl AST (15-37) U/L ALT (12-78) U/L Alkaline Phosphatase (45-117) U/L C-Reactive Protein (0-0.29) mg/dl Total Protein (6.4-8.2) gm/dl Albumin (3.4-5.0) gm/dl Globulin (2.5-4.0) gm/dl Albumin/Globulin Ratio (0.9-2) PG Care Time/CCT Total # of Minutes Spent Total Time Spent with Patient: Total time spent is greater than 50% in coordination of care (as documented) at patient's floor/unit and/or counseling patient: Coding Level of Care Code 37647 Subseq Hosp Care Lvl 3 Diagnoses COVID-19 U07.1 Chronic anemia D64.9 Type 2 diabetes mellitus E11.9 Morbid obesity E66.01 Benign essential hypertension I10 Hypoxia R09.02 Chronic back pain M54.9; G89.29 GERD (gastroesophageal reflux disease) K21.9 Recurrent major depressive disorder, in remission F33.40 Mixed hyperlipidemia E78.2
[2021-05-04] MEDS: INSULIN ASPART 100 UNITS/ML 3 ML PEN SC SCH ×6 (00:31→21:05)
[2021-05-04] MEDS: VALSARTAN 80 MG TAB PO SCH (09:00)
[2021-05-04] MEDS: hydroCHLOROthiazide 25 MG TAB PO SCH (09:00)
[2021-05-04] MEDS: CYANOCOBALAMIN 500 MCG TABLET (VITAMIN B-12) PO SCH (09:00)
[2021-05-04] MEDS: VITAMIN B COMPLEX TAB PO SCH (09:00)
[2021-05-04] MEDS: FLUTICASONE PROPIONATE NA SPR 16 GM BTL SCH (09:01)
[2021-05-04] MEDS: ASCORBIC ACID 500 MG TAB PO SCH ×2 (09:01→20:14)
[2021-05-04] MEDS: ENOXAPARIN INJ 60 MG/0.6 ML SYR SQ SCH ×2 (09:02→20:13)
[2021-05-04] MEDS: dexAMETHasone 6 MG in SYRINGE 0 ML IV SCH (09:02)
[2021-05-04] MEDS: HYDROCODONE/ACETAMINOPHEN 7.5/325MG TAB PO PRN (09:44)
[2021-05-04] MEDS: INSULIN HUMAN NPH SC SCH (09:44)
[2021-05-04 10:12] LABS: Hematocrit (blood only) 38.6 % (37-47); Hemoglobin 12.8 g/dL (12.0-16.0); Immature Granulocytes # (auto) 0.01 K/uL (0.00-0.02); Immature Granulocytes % (auto) 0.3 %; Lymphocytes # (auto) 0.88 K/uL (1.2-3.4); Lymphocytes % (auto) 29.2 %; Mean Corpuscular Hgb Conc 33.2 g/dL (32-36); Mean Corpuscular Volume 87.3 fL (80-100); Mean Platelet Volume 10.1 fL (7.4-10.4); Monocytes # (auto) 0.22 K/uL (0.11-0.59); Monocytes % (auto) 7.3 %; Neutrophils % (auto) 63.2 %; Platelet Count 148 K/uL (130-400); RDW Coefficient of Variation 15.4 % (11.5-14.5); RDW Standard Deviation 49.6 fL (36.4-46.3); Red Blood Count 4.42 M/uL (4.2-5.4); White Blood Count 3.01 K/uL (4.8-10.8)
[2021-05-04 10:38] LABS: Albumin Level 3.5 gm/dl (3.4-5.0); BUN Creatinine Ratio 21.2 (10-20); C Reactive Protein 0.35 mg/dl (0-0.29); Calcium 9.3 mg/dl (8.5-10.1); Creatinine Clr Calc Pharmacy 70.9 ml/min; Est GFR (African American) 64.1 ml/min; Est GFR (Non-African American) 55.3 ml/min; Potassium 3.2 mmol/L (3.5-5.1)
[2021-05-04 10:41] LABS: Albumin Globulin Ratio 0.8 (0.9-2); Bilirubin,Total 0.5 mg/dl (0.2-1); Estimated Average Glucose 154 mg/dl; Globulin 4.4 gm/dl (2.5-4.0); Total Protein 7.9 gm/dl (6.4-8.2)
[2021-05-04] MEDS: ASPIRIN 81 MG ECTAB PO SCH (13:05)
[2021-05-04] MEDS: PANTOprazole 40 MG TAB PO SCH (13:05)
[2021-05-04] MEDS: CETIRIZINE HCL 10 MG TABLET PO SCH (13:06)
--- NOTE | 2021-05-04 15:29 | Hospitalist Progress Note ---
Date of Service May 04, 2021 Assessment & Plan (1) COVID-19: Plan: Acute hypoxic respiratory failure 2/2 COVID-19 pneumonia Presented with 1 week of symptoms of worsening diarrhea, cough, and SOB, found to be hypoxic on arrival -CXR negative but with crackles on exam, hypoxia, seems consistent with COVID-19 early disease. -Patient is unvaccinated. - Remains on 1-2LNC supplemental O2 - CRP low at 1 -continue remdesevir x 5 days -continue dexamethasone 6mg daily x 10 days -added on flutter valve, IS -add on scheduled DUonebs -encouraged side sleep or prone positioning -continued stay to ensure not going to worsen around day 8-10 -Trend CBC, CMP, CRP Patient doing well, tolerated two-step but with tachycardic response. Continue to observe, PT/OT pending (2) Hypoxia: Plan: as above, secondary to COVID-19 PNA (3) Chronic anemia: Plan: Hemoglobin normal today Leukopenia, improving to 3.01 today Platelets improved, in normal range 148 today Consider outpatient follow-up if recurrent, CBC as outpatient to ensure stability (4) Benign essential hypertension: Plan: Improving Continue valsartan/HCTZ Hydralazine 10 mg IV as needed SBP greater than 180 (5) Type 2 diabetes mellitus: Plan: last hgbA1c in prediabetes range in 12/2020 with hyperglycemia here secondary to steroids Pharmacy managing with NPH, Novolog A1c 7.0 (6) Morbid obesity: Plan: recommend lifestyle changes BMI 44.1 (7) Chronic back pain: Plan: Continue home chronic hydrocodone prn (8) GERD (gastroesophageal reflux disease): Plan: continue PPI (9) Recurrent major depressive disorder, in remission: Plan: stable continue duloxetine, mirtazapine melatonin for sleep (10) Mixed hyperlipidemia: Plan: continue statin Plan: DVT Proph-Lovenox Dispo-continued stay to ensure not worsening at the day 8-9 chula of illness. Patient appears to be clinically stabilizing, PT/OT pending for dispo Admission and Anticipated Discharge Date Admission Date: May 02, 2021 Subjective Feeling overall improved, although somewhat weak. No shortness of breath at bedside assessment today. On nasal cannula. Endorses intermittent cough. No nausea/vomiting/diarrhea/constipation today. Tolerated breakfast well. Awaiting PT/OT. Review of Systems Review of Systems: 10 point review of systems negative except as noted in subjective and as previously noted Physical Exam Physical Exam: General: A&Ox3. NAD. Cooperative. HEENT: Atraumatic, normocephalic. Pulm: Bibasilar crackles with moderate air movement, no rales or wheezes. Symmetrical chest rise. No increase work of breathing. No respiratory distress. Cardiac: RRR, -mrg. Radial pulses intact and symmetrical. Abdominal: Nontender, nondistended, soft. BS present. Results & Data Results & Data ([facility]) Vital Signs (Past 12 Hours) Vital Signs Temp Pulse Pulse Pulse Pulse Resp Resp 05/04/21 14:12 129 H 115 H 86 22 05/04/21 12:00 37.0 C 85 20 05/04/21 07:45 36.9 C 88 20 05/04/21 04:00 36.8 C 85 18 Resp Resp BP Pulse Ox Pulse Ox Pulse Ox Pulse Ox 05/04/21 14:12 20 18 90 92 90 05/04/21 12:00 132/79 92 05/04/21 07:45 146/80 H 91 05/04/21 04:00 116/65 93 PG Care Time/CCT Total # of Minutes Spent Total Time Spent with Patient: Total time spent is greater than 50% in coordination of care (as documented) at patient's floor/unit and/or counseling patient: Coding Level of Care Code 77069 Subseq Hosp Care Lvl 2 Diagnoses COVID-19 U07.1 Hypoxia R09.02 Chronic anemia D64.9 Benign essential hypertension I10 Type 2 diabetes mellitus E11.9 Morbid obesity E66.01 Chronic back pain M54.9; G89.29 GERD (gastroesophageal reflux disease) K21.9 Recurrent major depressive disorder, in remission F33.40 Mixed hyperlipidemia E78.2
[2021-05-04] MEDS: REMDESIVIR 100 MG in SODIUM CHLORIDE 0.9% 230 ML IV SCH (19:55)
[2021-05-04] MEDS: LOVASTATIN 20 MG TAB PO SCH (20:13)
[2021-05-04] MEDS: DULoxetine HCL 30 MG CAP PO SCH (20:14)
[2021-05-04] MEDS: MIRTAZAPINE SOLTAB 15 MG PO SCH (20:15)
[2021-05-04] MEDS: MELATONIN 3 MG TAB PO SCH (20:16)
[2021-05-04] MEDS ORDERED: INSULIN HUMAN NPH SC ONE (20:45)
[2021-05-04] MEDS: SODIUM CHLORIDE 0.9% 10ML FLUSH IV SCH (21:05)
[2021-05-05] MEDS ORDERED: INSULIN HUMAN NPH SC SCH (09:00)
[2021-05-05] MEDS: CETIRIZINE HCL 10 MG TABLET PO SCH (09:05)
[2021-05-05] MEDS: CYANOCOBALAMIN 500 MCG TABLET (VITAMIN B-12) PO SCH (09:05)
[2021-05-05] MEDS: hydroCHLOROthiazide 25 MG TAB PO SCH (09:06)
[2021-05-05] MEDS: VALSARTAN 80 MG TAB PO SCH (09:06)
[2021-05-05] MEDS: PANTOprazole 40 MG TAB PO SCH (09:06)
[2021-05-05] MEDS: VITAMIN B COMPLEX TAB PO SCH (09:07)
[2021-05-05] MEDS: ASCORBIC ACID 500 MG TAB PO SCH (09:07)
[2021-05-05] MEDS: dexAMETHasone 6 MG in SYRINGE 0 ML IV SCH (09:08)
[2021-05-05] MEDS: ASPIRIN 81 MG ECTAB PO SCH (09:08)
[2021-05-05] MEDS: ENOXAPARIN INJ 60 MG/0.6 ML SYR SQ SCH (09:08)
[2021-05-05] MEDS: FLUTICASONE PROPIONATE NA SPR 16 GM BTL SCH (09:15)
[2021-05-05] MEDS: INSULIN ASPART 100 UNITS/ML 3 ML PEN SC SCH ×2 (09:16→12:33)
[2021-05-05 11:27] LABS: Hematocrit (blood only) 39.8 % (37-47); Hemoglobin 13.2 g/dL (12.0-16.0); Immature Granulocytes # (auto) 0.02 K/uL (0.00-0.02); Immature Granulocytes % (auto) 0.5 %; Lymphocytes # (auto) 0.94 K/uL (1.2-3.4); Mean Corpuscular Hemoglobin 28.6 pg (25-34); Mean Corpuscular Hgb Conc 33.2 g/dL (32-36); Mean Corpuscular Volume 86.3 fL (80-100); Mean Platelet Volume 9.8 fL (7.4-10.4); Monocytes # (auto) 0.34 K/uL (0.11-0.59); Monocytes % (auto) 8.3 %; Neutrophils # (auto) 2.78 K/uL (1.4-6.5); Neutrophils % (auto) 68.2 %; Platelet Count 168 K/uL (130-400); RDW Coefficient of Variation 15.2 % (11.5-14.5); RDW Standard Deviation 48.5 fL (36.4-46.3); Red Blood Count 4.61 M/uL (4.2-5.4); White Blood Count 4.08 K/uL (4.8-10.8)
[2021-05-05 11:56] LABS: BUN Creatinine Ratio 24.1 (10-20); Calcium 9.5 mg/dl (8.5-10.1); Creatinine Clr Calc Pharmacy 76.7 ml/min; Est GFR (African American) 70.5 ml/min; Est GFR (Non-African American) 60.9 ml/min; Potassium 3.6 mmol/L (3.5-5.1)
--- NOTE | 2021-05-05 13:14 | Discharge Summary ---
Date of Service May 05, 2021 Admission HPI Per Admitting Provider Patient is unvaccinated. She reports feeling general malaise and SOB on Thursday. This was accompanied by loss of taste of smell. This has been gradually worsening. Admission Exam Per Admitting Provider General: A&Ox3. NAD. Cooperative. HEENT: Atraumatic, normocephalic. Pulm: Bibasilar crackles with moderate air movement, no rales or wheezes. Symmetrical chest rise. No increase work of breathing. No respiratory distress. Cardiac: RRR, -mrg. Radial pulses intact and symmetrical. Abdominal: Nontender, nondistended, soft. BS present. Principal Diagnosis COVID-19 pneumonia Discharge Exam General: A&Ox3. NAD. Cooperative. HEENT: Atraumatic, normocephalic. Pulm: CTAB A&P. -wheezes, -rales, -rhonchi. Symmetrical chest rise. No increase work of breathing. No respiratory distress. Cardiac: RRR, -mrg. Radial pulses intact and symmetrical. Abdominal: Nontender, nondistended, soft. BS present. Discharge Data Allergies Allergy/AdvReac Type Severity Reaction Status Date / Time Sulfa (Sulfonamide Allergy Unknown throat Verified 04/29/21 15:45 Antibiotics) goes shut acetaminophen [From Percocet] AdvReac Unknown n&v Verified 04/29/21 15:45 Consultations 05/02/21 14:17 ED Decision to Admit Stat Hospital Course (1) COVID-19: To do as outpatient: 1. Routine follow-up with PCP 2. Complete 10-day Decadron course 3. Consider repeat outpatient CBC in 1-2 weeks to follow chronic anemia Acute hypoxic respiratory failure 2/2 COVID-19 pneumonia Presented with 1 week of symptoms of worsening diarrhea, cough, and SOB, found to be hypoxic on arrival -CXR negative but with crackles on exam, hypoxia, seems consistent with COVID-19 early disease. -Patient is unvaccinated. During admission required 1 to 2 L supplemental O2, down trended and was satting well on room air at time of discharge - CRP low at 1 Discharged to complete 10-day total course of dexamethasone Received 3 doses of remdesivir Tolerated flutter valve, inspiratory spirometer, duo nebs well Patient was observed as Headstart is worsening at the 810, but then improved and passed a two-step evening prior to discharge PT/OT recommended discharge home, patient was discharged to follow-up with PCP Anticoagulated with prophylactic Lovenox during admission, no signs of DVT (2) Hypoxia: as above, secondary to COVID-19 PNA (3) Chronic anemia: Hemoglobin normal today Leukopenia, improving to 3.01 today Platelets improved, in normal range 148 today Consider outpatient follow-up if recurrent, CBC as outpatient to ensure stabi lity (4) Benign essential hypertension: Improving Continue valsartan/HCTZ Hydralazine 10 mg IV as needed SBP greater than 180 (5) Type 2 diabetes mellitus: last hgbA1c in prediabetes range in 12/2020 with hyperglycemia here secondary to steroids Pharmacy managing with [facility], Novolog A1c 7.0 (6) Morbid obesity: recommend lifestyle changes BMI 44.1 (7) Chronic back pain: Continue home chronic hydrocodone prn (8) GERD (gastroesophageal reflux disease): continue PPI (9) Recurrent major depressive disorder, in remission: stable continue duloxetine, mirtazapine melatonin for sleep (10) Mixed hyperlipidemia: continue statin Total Time Total Time Spent Total Time Spent (In Minutes): 35 minutes on documentation, coordination of care, review of labs and images, and direct patient care Discharge Plan Discharge Items Patient Disposition: Home - Self-Care Reason For Visit: COVID 19 Discharge Diagnosis: COVID19 Pneumonia Activity: Per Instructions section Non-emergency contact: Primary Care Provider Call non-emergency contact if: you have any medication questions, your symptoms worsen, your pain is not controlled, your pain is worsening and your pain is unusual for you Follow-up/Referrals: Steve Pierre MD [Primary Care Provider] - Diet: Carb Consistent or DM2 Addtl Attending Provider Instructions: You were seen in the hospital for acute Covid pneumonia. You received steroids and remdesivir, and clinically progressed well. You did not require oxygen at time of discharge. You have been discharged to complete a 10-day total course a steroid, dexamethasone. Please take dexamethasone 6 mg by mouth once daily for 8 days to complete a 10-day course including the steroids received during hospitalization. No antibiotics were indicated at time of admission or discharge. Your white blood cell count was low during admission. This can be caused/worsened by viral infections including Covid. Please have a complete blood count (CBC) performed as an outpatient, this should be ordered by your primary care provider at your follow-up appointment. A followup appointment is being scheduled for you with Steve Pierre. You should be seen seen within 2 weeks. You should receive a call to confirm this appointment. If you do not receive a call within 48 hours to confirm this appointment, or need to change this appointment, please call the provider's office at [phone]. If you develop any new or worsening symptoms including fever, chills, sweats, chest pain, chest pressure, difficulty breathing, uncontrolled nausea/vomiting, rash, wheezing, passing out or nearly passing out, bleeding, black/bloody bowel movements, or other new or concerning symptoms please call your primary care physician at [phone], or call 911 for re-evaluation in the emergency department if you are very concerned. Pending Studies at Discharge: No Stand-Alone Forms: My [facility] [employer], Smoking Cessation Medications and DC Order Prescriptions: New dexamethasone 6 mg tablet 6 mg PO DAILY Qty: 8 RF: 0 Continued fluticasone propionate 50 mcg/actuation spray,suspension 2 spray intranasal DAILY Qty: 18.2 RF: 5 potassium chloride 10 mEq capsule, extended release 20 meq PO BID Qty: 120 RF: 11 hydrochlorothiazide 12.5 mg tablet 12.5 mg PO QAM Qty: 30 RF: 5 lovastatin 20 mg tablet 20 mg PO HS Qty: 90 RF: 1 metformin 1,000 mg tablet 1,000 mg PO BID Qty: 180 RF: 3 hydrocodone-acetaminophen 7.5-325 mg tablet 1 tab PO QID PRN (Reason: pain) Qty: 120 RF: 0 vitamin B complex [B Complex-Vitamin B12] Tablet 1 tab PO DAILY RF: 0 ascorbic acid (vitamin C) 250 mg tablet 250 mg PO BID Qty: 60 RF: 1 cetirizine 10 mg tablet 10 mg PO QAM RF: 0 mirtazapine 45 mg tablet 45 mg PO QPM RF: 0 Vitamin B-12 50 mcg Tablet 1,000 mcg PO DAILY RF: 0 omeprazole 40 mg capsule,delayed release(DR/EC) 40 mg PO QAM RF: 0 valsartan-hydrochlorothiazide 320-12.5 mg tablet 1 tab PO QAM RF: 0 duloxetine [Cymbalta] 30 mg Capsule,Delayed Release(Dr/Ec) 30 mg PO HS RF: 0 melatonin 10 mg Tablet 10 mg PO HS RF: 0 aspirin 81 mg Capsule 81 mg PO QAM RF: 0 glimepiride 1 mg tablet 1 mg PO QPM RF: 0 Discharge Orders: Discharge Order (Routine); Ordered 05/05/21 Ordered By: Adal Burton/Other Patient Handouts: Managing Type 2 Diabetes Admission Data Admit Date/Time: 05/02/21 16:36 Attending Provider: Adal Chanel Admit Provider: Luis Vela Primary Care Provider: Steve Pierre Other Providers: Luis Mack Coding Level of Care Code D/C DAY MANAGEMENT >30 MINS Diagnoses COVID-19 U07.1 Hypoxia R09.02 Chronic anemia D64.9 Benign essential hypertension I10 Type 2 diabetes mellitus E11.9 Morbid obesity E66.01 Chronic back pain M54.9; G89.29 GERD (gastroesophageal reflux disease) K21.9 Recurrent major depressive disorder, in remission F33.40 Mixed hyperlipidemia E78.2
== END 2021-05-05 14:40 | disposition home or self-care (01) | DRG 177 ==
LOC: ED 09:44 → SUATTDRO 16:36 → EDINP 16:36 → 2W 05-04 00:24

== ENCOUNTER 2023-11-25 09:36 | Inpatient (IN) ==
--- NOTE | 2023-11-17 09:53 | PAT Medication Instructions ---
Medication Instructions Date of Service November 17, 2023 Home Medications Medication Instructions Recorded glimepiride 4 mg tablet 4 mg PO BID #180 tabs 10/03/22 mirtazapine 45 mg tablet 45 mg PO QPM #90 tabs 10/03/22 ferrous gluconate 324 mg (38 mg 324 mg PO BID #180 tabs 03/02/23 iron) tablet OneTouch UltraSoft 2 Lancet 30 #100 ea 04/09/23 gauge (lancets) dulaglutide 4.5 mg/0.5 mL 4.5 mg (0.5 mL) subcut .weekly #6 04/09/23 subcutaneous pen injector mL (Trulicity) nitroglycerin 0.4 mg sublingual 0.4 mg sublingual Q5M PRN chest 04/27/23 tablet pain #25 tabs metformin 1,000 mg tablet 1,000 mg PO BID #180 tabs 05/04/23 omeprazole 40 mg capsule,delayed 40 mg PO QAM #90 caps 06/22/23 release potassium chloride 10 mEq 20 meq (2 x 10 mEq) PO BID #360 07/02/23 capsule,extended release caps lancets 30 gauge (OneTouch #300 ea 07/17/23 UltraSoft 2 Lancet) triamcinolone acetonide 0.1 % 1 applic topical BID PRN itching 07/17/23 topical cream #80 grams valsartan 320 1 tab PO QAM #90 tabs 07/17/23 mg-hydrochlorothiazide 25 mg tablet OneTouch Ultra Test (blood sugar #100 ea 08/19/23 diagnostic) buspirone 15 mg tablet 7.5 mg (1/2 x 15 mg) PO BID #90 08/27/23 tabs duloxetine 60 mg capsule,delayed 60 mg PO BID #180 caps 09/14/23 release pen needle, diabetic 32 gauge x #100 ea 09/22/2332" (BD Ultra-Fine Skylar Pen Needle) lovastatin 40 mg tablet 40 mg PO HS #90 tabs 10/22/23 hydrocodone 7.5 mg-acetaminophen 1 tab PO Q6H PRN pain #120 tabs 10/23/23 325 mg tablet ascorbic acid (vitamin C) 250 mg 250 mg PO BID #180 tabs 11/16/23 tablet cetirizine 10 mg tablet 10 mg PO QAM cyanocobalamin (vitamin B-12) 50 mcg tablet (Vitamin B-12) 1,000 mcg PO QAM aspirin 81 mg capsule 81 mg PO QAM melatonin 10 mg tablet 10 mg PO HS glimepiride 4 mg tablet 4 mg PO BID mirtazapine 45 mg tablet 45 mg PO QPM ferrous gluconate 324 mg (38 mg iron) tablet 324 mg PO BID dulaglutide 4.5 mg/0.5 mL subcutaneous pen injector (Trulicity) 4.5 mg (0.5 mL) subcut .weekly nitroglycerin 0.4 mg sublingual tablet 0.4 mg sublingual Q5M PRN metformin 1,000 mg tablet 1,000 mg PO BID insulin glargine 100 unit/mL (3 mL) subcutaneous pen (Lantus Solostar U-100 Insulin) 22 unit subcut QAM omeprazole 40 mg capsule,delayed release 40 mg PO QAM potassium chloride 10 mEq capsule,extended release 20 meq (2 x 10 mEq) PO BID triamcinolone acetonide 0.1 % topical cream 1 applic topical BID PRN valsartan 320 mg-hydrochlorothiazide 25 mg tablet 1 tab PO QAM buspirone 15 mg tablet 7.5 mg (1/2 x 15 mg) PO BID duloxetine 60 mg capsule,delayed release 60 mg PO BID lovastatin 40 mg tablet 40 mg PO HS hydrocodone 7.5 mg-acetaminophen 325 mg tablet 1 tab PO Q6H PRN ascorbic acid (vitamin C) 250 mg tablet 250 mg PO BID fluticasone propionate 50 mcg/actuation nasal spray,suspension 2 spray intranasal UD PRN magnesium oxide 400 mg (241.3 mg magnesium) tablet (MagOx) 400 mg PO BID metoprolol succinate 25 mg tablet,extended release 24 hr 25 mg PO QAM vitamin B complex 1 cap PO QAM STOP 7 days before surgery dulaglutide 4.5 mg/0.5 mL subcutaneous pen injector (Trulicity) 4.5 mg (0.5 mL) subcut .weekly Continue as directed nitroglycerin 0.4 mg sublingual tablet 0.4 mg sublingual Q5M PRN(if needed) fluticasone propionate 50 mcg/actuation nasal spray,suspension 2 spray intranasal UD PRN(if needed) ASK your prescriber and surgeon aspirin 81 mg capsule 81 mg PO QAM STOP taking 24 hours before surgery triamcinolone acetonide 0.1 % topical cream 1 applic topical BID PRN DO NOT take the morning of surgery cetirizine 10 mg tablet 10 mg PO QAM cyanocobalamin (vitamin B-12) 50 mcg tablet (Vitamin B-12) 1,000 mcg PO QAM glimepiride 4 mg tablet 4 mg PO BID ferrous gluconate 324 mg (38 mg iron) tablet 324 mg PO BID metformin 1,000 mg tablet 1,000 mg PO BID potassium chloride 10 mEq capsule,extended release 20 meq (2 x 10 mEq) PO BID valsartan 320 mg-hydrochlorothiazide 25 mg tablet 1 tab PO QAM ascorbic acid (vitamin C) 250 mg tablet 250 mg PO BID magnesium oxide 400 mg (241.3 mg magnesium) tablet (MagOx) 400 mg PO BID vitamin B complex 1 cap PO QAM Take morning of surgery With a small sip of water, OTHERWISE NOTHING TO EAT OR DRINK AFTER MIDNIGHT: omeprazole 40 mg capsule,delayed release 40 mg PO QAM buspirone 15 mg tablet 7.5 mg (1/2 x 15 mg) PO BID duloxetine 60 mg capsule,delayed release 60 mg PO BID hydrocodone 7.5 mg-acetaminophen 325 mg tablet 1 tab PO Q6H PRN(if needed) metoprolol succinate 25 mg tablet,extended release 24 hr 25 mg PO QAM Take evening before surgery melatonin 10 mg tablet 10 mg PO HS glimepiride 4 mg tablet 4 mg PO BID mirtazapine 45 mg tablet 45 mg PO QPM ferrous gluconate 324 mg (38 mg iron) tablet 324 mg PO BID metformin 1,000 mg tablet 1,000 mg PO BID potassium chloride 10 mEq capsule,extended release 20 meq (2 x 10 mEq) PO BID buspirone 15 mg tablet 7.5 mg (1/2 x 15 mg) PO BID duloxetine 60 mg capsule,delayed release 60 mg PO BID lovastatin 40 mg tablet 40 mg PO HS hydrocodone 7.5 mg-acetaminophen 325 mg tablet 1 tab PO Q6H PRN(if needed) ascorbic acid (vitamin C) 250 mg tablet 250 mg PO BID magnesium oxide 400 mg (241.3 mg magnesium) tablet (MagOx) 400 mg PO BID Insulin Dependent Diabetic Patients * Test your blood sugar the morning of surgery * If Blood Sugar is GREATER THAN 150, take HALF of your regular dose of: insulin glargine 100 unit/mL (3 mL) subcutaneous pen (Lantus Solostar U-100 Insulin). * If Blood Sugar is LESS THAN 150, DO NOT TAKE ANY: insulin glargine 100 unit/mL (3 mL) subcutaneous pen (Lantus Solostar U-100 Insulin). Other Notes If you have any questions please call us at [phone] or [phone] or [phone] or [phone]
--- NOTE | 2023-11-18 14:08 | Anesthesiology Consultation ---
Date of Service November 18, 2023 Assessment & Plan (1) Encounter for pre-operative examination: Plan - surgeon ordered [place] PCP pre-operative evaluation 11/20/23. - check BSG am DOS. - potential difficult intubation: cervical disc disease, limited cervical ROM, TMD < 3 and Mallampati 3. - cirrhotic liver with portal hypertension: noted on 05/2023 abdomen pelvis imaging-no indication of further evaluation. Case discussed with Dr. Reyna who advised patient is acceptable to proceed from anesthesia standpoint given acceptable platelet count. - dulaglutide instructions: Patient informed at PAT visit to stop 7 days prior to surgery-voiced understanding. - Outpatient joint assessment: Patient is currently scheduled for inpatient pathway. If re-evaluated and patient/surgeon requests outpatient pathway, pat ient is not ideal candidate for outpatient joint program from anesthesia standpoint. Chart Review Chart Review: Pending: Refer to Additional Notes / Consult section and Patient seen in Pre Admission Testing Teaching & Discussion Pre-Anesthesia Teaching/Discussion Notes: Instructed NPO after midnight before surgery, except medications with 15 cc of water. Medication instructions provided according to the [facility] guidelines. History Surgery Operation Date: 11/25/23 09:30 Proposed Procedures p Left Shoulder Fracture Reverse Total Shoulder Arthroplasty, Osteotomies Greater and Lesser Tuberosities with Repairs Biceps Tenodesis - Mesfin Rios MD Height/Weight Height: 5 ft 7 in Weight: 121.6 kg Allergies Allergy/AdvReac Type Severity Reaction Status Date / Time Sulfa (Sulfonamide Allergy Severe Anaphylaxis Verified 11/18/23 14:14 Antibiotics) meclizine Allergy Intermediate Headache Verified 10/22/23 13:32 acetaminophen [From Percocet] AdvReac Mild N/V Verified 11/17/23 10:23 oxycodone [From Percocet] AdvReac Mild Nausea Verified 11/17/23 07:53 Medications Home Medications Medication Instructions Recorded Confirmed Last Taken cetirizine 10 mg tablet 10 mg PO QAM 12/26/18 11/17/23 03/31/21 cyanocobalamin (vitamin B-12) 50 1,000 mcg PO QAM 03/01/21 11/17/23 03/31/21 mcg tablet (Vitamin B-12) aspirin 81 mg capsule 81 mg PO QAM 03/26/21 11/17/23 03/31/21 melatonin 10 mg tablet 10 mg PO HS 03/26/21 11/17/23 03/30/21 glimepiride 4 mg tablet 4 mg PO BID #180 tabs 10/03/22 11/17/23 Unknown mirtazapine 45 mg tablet 45 mg PO QPM #90 tabs 10/03/22 11/17/23 Unknown ferrous gluconate 324 mg (38 mg 324 mg PO BID #180 tabs 03/02/23 11/17/23 Unknown iron) tablet OneTouch UltraSoft 2 Lancet 30 #100 ea 04/09/23 10/22/23 Unknown gauge (lancets) dulaglutide 4.5 mg/0.5 mL 4.5 mg (0.5 mL) subcut .weekly #6 04/09/23 11/17/23 Unknown subcutaneous pen injector mL (Trulicity) nitroglycerin 0.4 mg sublingual 0.4 mg sublingual Q5M PRN chest 04/27/23 11/17/23 Unknown tablet pain #25 tabs metformin 1,000 mg tablet 1,000 mg PO BID #180 tabs 05/04/23 11/17/23 Unknown insulin glargine 100 unit/mL (3 22 unit subcut QAM 05/22/23 11/17/23 Unknown mL) subcutaneous pen (Lantus Solostar U-100 Insulin) omeprazole 40 mg capsule,delayed 40 mg PO QAM #90 caps 06/22/23 11/17/23 Unknown release potassium chloride 10 mEq 20 meq (2 x 10 mEq) PO BID #360 07/02/23 11/17/23 Unknown capsule,extended release caps lancets 30 gauge (OneTouch #300 ea 07/17/23 10/22/23 Unknown UltraSoft 2 Lancet) triamcinolone acetonide 0.1 % 1 applic topical BID PRN itching 07/17/23 11/17/23 Unknown topical cream #80 grams valsartan 320 1 tab PO QAM #90 tabs 07/17/23 11/17/23 Unknown mg-hydrochlorothiazide 25 mg tablet OneTouch Ultra Test (blood sugar #100 ea 08/19/23 10/22/23 Unknown diagnostic) buspirone 15 mg tablet 7.5 mg (1/2 x 15 mg) PO BID #90 08/27/23 11/17/23 Unknown tabs duloxetine 60 mg capsule,delayed 60 mg PO BID #180 caps 09/14/23 11/17/23 Unknown release pen needle, diabetic 32 gauge x #100 ea 09/22/23 10/22/23 Unknown " (BD Ultra-Fine Skylar Pen Needle) lovastatin 40 mg tablet 40 mg PO HS #90 tabs 10/22/23 11/17/23 Unknown hydrocodone 7.5 mg-acetaminophen 1 tab PO Q6H PRN pain #120 tabs 10/23/23 11/17/23 Unknown 325 mg tablet ascorbic acid (vitamin C) 250 mg 250 mg PO BID #180 tabs 11/16/23 11/17/23 Unknown tablet fluticasone propionate 50 2 spray intranasal UD PRN allergies 11/17/23 11/17/23 Unknown mcg/actuation nasal spray,suspension magnesium oxide 400 mg (241.3 mg 400 mg PO BID 11/17/23 11/17/23 Unknown magnesium) tablet (MagOx) metoprolol succinate 25 mg 25 mg PO QAM 11/17/23 11/17/23 Unknown tablet,extended release 24 hr vitamin B complex 1 cap PO QAM 11/17/23 11/17/23 Unknown Past Medical History Medical History Expected difficult intubation cervical disc disease, limited cervical ROM, TMD < 3 and Mallampati 3. History of GI bleed (~2020) Difficult intravenous access Snoring Primary osteoarthritis, left shoulder Dizziness PCP monitoring-stable per pt Type 2 diabetes mellitus NIDDM Lumbar radiculopathy Left rotator cuff tear Hx of chest pain patient reports negative cardiac [id number] due to anxiety, not heart issue Mixed hyperlipidemia Benign essential hypertension controlled, stable per pt0 Seasonal allergies Dyspnea on exertion states this has been since having COVID Pneumonia in 2020-denies change or worsening History of COVID-19 Had COVID pneumonia and admitted to [facility] in 2021, no intubation, chronic POLANCO since History of pernicious anemia Acid reflux controlled, stable per pt History of kidney stones Passed on own, no surgery History of skin cancer Leg and face excision Anxiety and depression Morbid obesity Cervical radiculopathy Herniated cervical disc (unsure of exact level) Chronic pain Back-stable per pt-denies recent change or worsening Diabetic peripheral neuropathy feet Generalized osteoarthritis Patient denies h/o stroke, seizures, heart attack, heart failure, blood clots/DVTs or blood transfusions. Exercise / Class Metabolic Activity III < 4 Walking/Shop/Light housework (shortness of breath with usual activities- ongoing since COVID pneumonia in 2020-denies change or worsening; denies chest discomfort) Past Family History Family History Sister Family history of diabetes mellitus Father Family history of diabetes mellitus Diabetes Heart disease Hypertension Myocardial infarction Mother Dementia Asthma Breast cancer Depression Anxiety Hypertension Other Family history of colon cancer in father Denies family history of Ovarian cancer Prostate cancer Alzheimer disease Bipolar disorder Kidney disease Lung cancer COPD (chronic obstructive pulmonary disease) Colorectal cancer Colonic polyp Stroke Past Surgical History Surgical History Hx of basal cell carcinoma excision Leg, face Hx of esophagogastroduodenoscopy History of carpal tunnel release of both wrists History of ankle surgery right History of colonoscopy History of cholecystectomy History of delivery History of back surgery lumbar fusion Past Anesthesia History No Family Hx of Anesthesia Complications and Other (awareness during ankle procedure) History of PONV No Hx of PONV and Hx of Motion Sickness Social History Smoking Status: Never smoker Do You Dip or Chew Tobacco: No Hx Alcohol Use: No Hx Substance Use: No substance use type: does not use Review of Systems Patient denies chest pain, fever, chills, cough, wheezing, or palpitations. Physical Exam Vital Signs Vitals BP 118/72 P 89 TEMP 98.1 SP02 95% on RA RESP 18 Physical Patient resting comfortably in chair in no acute distress, alert and oriented, responding appropriately throughout visit Limited cervical extension range of motion without pain TMD < 3 finger breadths Mallampati Score 3 Dentition: edentulous, full upper and lower dentures Lungs: normal respiratory effort. Good air movement, clear throughout to auscultation, no adventitious breath sounds Cardiac: regular rate and rhythm, no murmurs noted Carotid arteries: negative bruit bilat Lab Results Anesthesia Preop Results Results Anesthesia Widget: WBC 2.69 K/ul (4.8-10.8) L 11/18/23 Hgb 11.4 g/dl (12.0-16.0) L 11/18/23 Hct 33.7 % (37.0-47.0) L 11/18/23 Plt 121 K/uL (130-400) L 11/18/23 Na 140 mmol/L (136-145) 10/14/23 K 4.2 mmol/L (3.5-5.1) 10/14/23 Cl 106 mmol/L (98-107) 10/14/23 CO2 23 mmol/L (21-32) 10/14/23 BUN 19 mg/dl (6-23) 10/14/23 Creat 0.71 mg/dl (0.6-1.2) 10/14/23 Glucose Level 166 mg/dl (70-99(Fasting)) H 10/14/23 PT 11.6 Seconds (9.0-12.0) 11/18/23 PTT 25 Seconds (21-31) 11/18/23 INR 1.1 (0.9-1.1) 11/18/23 HA1c 6.3 % (4.5-5.6) H 11/18/23 Urine Color Dark Yellow 11/18/23 Urine Appearance Cloudy (Clear) A 11/18/23 Urine pH 5.5 (4.5-7.5) 11/18/23 Urine Specific [place] 1.028 (1.000-1.030) 11/18/23 Urine Protein 1+ (Negative) H 11/18/23 Urine Glucose (UA) Negative (Negative) 11/18/23 Urine Ketones 1+ (Negative) H 11/18/23 Urine Blood Negative (Negative) 11/18/23 Urine Nitrite Negative (Negative) 11/18/23 Urine Bilirubin 1+ (Negative) H 11/18/23 Urine Urobilinogen Negative (Negative) 11/18/23 Urine Leukocyte Esterase 2+ (Negative) H 11/18/23 Urine WBC (Auto) >50 /hpf (0-5) H 11/18/23 Urine RBC (Auto) 0-2 /hpf (0-2) 11/18/23 Urine Hyaline Casts (Auto) >20 /lpf (0-2) H 11/18/23 Urine Epithelial Cells (Auto) 11-20 /hpf (0-2) H 11/18/23 Urine Bacteria (Auto) 4+ (None Seen) H 11/18/23 Blood Type O Positive 06/19/24 Antibody Screen NEGATIVE 11/18/23 Testing Electrocardiogram Date: 05/20/23 NSR with sinus arrhythmia, rate 93 bpm Chest X-Ray Date: 05/20/23 No acute findings. Echocardiogram Date: 05/22/23 part of stress echo EF 60-65% Normal LV wall motion Moderate cLVH Grade I diastolic dysfunction No significant valvular abnormalities Stress Test Date: 08/13/23 MPHR 65% 1. Negative myocardial perfusion study for ischemia. 2. Fixed anterior defect likely due to breast attenuation. 3. Normal wall motion. Hyperdynamic LV systolic function. EF 80%. 4. Lexiscan induced chest heaviness and shortness of breath 5. Nondiagnostic Lexiscan ECG. Other Testing Chest, abdomen and pelvis CTA 05/20/23 No aortic dissection Cirrhotic liver morphology with findings of portal hypertension. Enlarged upper abdominal lymph nodes, nonspecific. Small amount of bladder air. Recommend correlation for recent catheterization or cystoscopy. Subcentimeter pulmonary nodules. For patients at low risk, no routine follow-up is indicated. MRI brain 04/30/23 No acute intracranial abnormality identified. A few scattered punctate T2 and FLAIR hyperintensities in the periventricular and subcortical white matter. These are nonspecific with primary considerations including chronic small vessel ischemic change or could represent sequela of chronic migraines. Demyelinating lesions as well as sequela of prior infectious or inflammatory processes are included in the differential and are considered less likely.
--- NOTE | 2023-11-18 16:33 | History & Physical Report ---
Date of Service November 18, 2023 Assessment & Plan (1) Rotator cuff tear, non-traumatic: Plan: Patient has massive rotator cuff tear left shoulder that was pre-existing. Patient was trying to compensate for her condition and treating nonsurgically and then injured her shoulder and sustained a proximal humerus fracture with angulation and some displacement and now she is even more disabled than she was previously. Current functions very limited. Expect outcome to be poor with nonsurgical treatment as she has a massive cuff tear and now angulated proximal humerus. I discussed that eventually she would require reverse shoulder replacement to manage the condition and doing this now would be easier with the acute fracture than allowing it to heal with a malunion and have to do more intensive osteotomies at a later date. She still going require osteotomies and a fracture reverse shoulder replacement now however process should be easier at this point in time. Patient may have ruptured biceps tendon. If biceps is intact or damaged from a fracture then we would proceed with biceps tenodesis. Tuberosities will be repaired with what ever intact rotator cuff infraspinatus teres minor and subscapularis that is still intact and repaired to the fracture reverse stem. Bone grafting from humeral head fragment will be utilized to assist healing of the tuberosities to the stem. Rotator cuff tear extent: complete Laterality: left Qualified Code(s): M75.122 - Complete rotator cuff tear or rupture of left shoulder, not specified as traumatic (2) Fracture, humerus, proximal: Encounter type: initial encounter Fracture type: closed Fracture morphology: other fracture Fracture alignment: displaced Laterality: left Qualified Code(s): S42.292A - Other displaced fracture of upper end of left humerus, initial encounter for closed fracture History of Present Illness Chief Complaint: Left shoulder pain and weakness Primary Care Provider: Steve Pierre MD 67-year-old female with a known massive rotator cuff tear of the left shoulder. She was compensating for this but had an injury and now has substantial increase more pain in her shoulder. Initially it was felt that she just reinjured her rotator cuff however upon x-rays and evaluation in the orthopedic office it was noted that she now has a proximal humerus fracture which is malaligned in addition to the massive rotator cuff tear. Patient denies headaches, sweats, fevers, chills, double vision, blurred vision, cough, sore throat, dysphagia, chest pain, sob, wheezing, n/v/d/c, numbness, tingling, fatigue, urinary symptoms, mood disorders. ROS positive for hypertension, high cholesterol, anxiety/depression, extremity numbness, shortness of breath with housework running short distance walking up a hill climbing a flight of stairs she is diabetic getting insulin treatment she has arthritis in the spine she is obese and has had kidney stones. Allergies Allergy/AdvReac Type Severity Reaction Status Date / Time Sulfa (Sulfonamide Allergy Severe Anaphylaxis Verified 11/18/23 14:14 Antibiotics) meclizine Allergy Intermediate Headache Verified 10/22/23 13:32 acetaminophen [From Percocet] AdvReac Mild N/V Verified 11/17/23 10:23 oxycodone [From Percocet] AdvReac Mild Nausea Verified 11/17/23 07:53 Home Medications Medication Instructions Recorded Confirmed Type cetirizine 10 mg tablet 10 mg PO QAM 12/26/18 11/17/23 History cyanocobalamin (vitamin B-12) 50 1,000 mcg PO QAM 03/01/21 11/17/23 History mcg tablet (Vitamin B-12) aspirin 81 mg capsule 81 mg PO QAM 03/26/21 11/17/23 History melatonin 10 mg tablet 10 mg PO HS 03/26/21 11/17/23 History glimepiride 4 mg tablet 4 mg PO BID #180 tabs 10/03/22 11/17/23 Rx mirtazapine 45 mg tablet 45 mg PO QPM #90 tabs 10/03/22 11/17/23 Rx ferrous gluconate 324 mg (38 mg 324 mg PO BID #180 tabs 03/02/23 11/17/23 Rx iron) tablet OneTouch UltraSoft 2 Lancet 30 #100 ea 04/09/23 10/22/23 Rx gauge (lancets) dulaglutide 4.5 mg/0.5 mL 4.5 mg (0.5 mL) subcut .weekly #6 04/09/23 11/17/23 Rx subcutaneous pen injector mL (Trulicity) nitroglycerin 0.4 mg sublingual 0.4 mg sublingual Q5M PRN chest 04/27/23 11/17/23 Rx tablet pain #25 tabs metformin 1,000 mg tablet 1,000 mg PO BID #180 tabs 05/04/23 11/17/23 Rx insulin glargine 100 unit/mL (3 22 unit subcut QAM 05/22/23 11/17/23 History mL) subcutaneous pen (Lantus Solostar U-100 Insulin) omeprazole 40 mg capsule,delayed 40 mg PO QAM #90 caps 06/22/23 11/17/23 Rx release potassium chloride 10 mEq 20 meq (2 x 10 mEq) PO BID #360 07/02/23 11/17/23 Rx capsule,extended release caps lancets 30 gauge (OneTouch #300 ea 07/17/23 10/22/23 Rx UltraSoft 2 Lancet) triamcinolone acetonide 0.1 % 1 applic topical BID PRN itching 07/17/23 11/17/23 Rx topical cream #80 grams valsartan 320 1 tab PO QAM #90 tabs 07/17/23 11/17/23 Rx mg-hydrochlorothiazide 25 mg tablet OneTouch Ultra Test (blood sugar #100 ea 08/19/23 10/22/23 Rx diagnostic) buspirone 15 mg tablet 7.5 mg (1/2 x 15 mg) PO BID #90 08/27/23 11/17/23 Rx tabs duloxetine 60 mg capsule,delayed 60 mg PO BID #180 caps 09/14/23 11/17/23 Rx release pen needle, diabetic 32 gauge x #100 ea 09/22/23 10/22/23 Rx 5/32" (BD Ultra-Fine Skylar Pen Needle) lovastatin 40 mg tablet 40 mg PO HS #90 tabs 10/22/23 11/17/23 Rx hydrocodone 7.5 mg-acetaminophen 1 tab PO Q6H PRN pain #120 tabs 10/23/23 11/17/23 Rx 325 mg tablet ascorbic acid (vitamin C) 250 mg 250 mg PO BID #180 tabs 11/16/23 11/17/23 Rx tablet fluticasone propionate 50 2 spray intranasal UD PRN allergies 11/17/23 11/17/23 History mcg/actuation nasal spray,suspension magnesium oxide 400 mg (241.3 mg 400 mg PO BID 11/17/23 11/17/23 History magnesium) tablet (MagOx) metoprolol succinate 25 mg 25 mg PO QAM 11/17/23 11/17/23 History tablet,extended release 24 hr vitamin B complex 1 cap PO QAM 11/17/23 11/17/23 History Past Med/Surg History Problem List (Updated 11/18/23 @ 16:25 by Mesfin Rios MD) Fracture, humerus, proximal Rotator cuff tear, non-traumatic Encounter for pre-operative examination Primary osteoarthritis, left shoulder Left rotator cuff tear Cobalamin deficiency Headache entered into EMR and last edited 04/27/23-patient denies current problems with headaches Dysuria entered into EMR and last edited 04/09/23 -patient reports resolution Subconjunctival hemorrhage of both eyes first entered into EMR and last edited 04/08/22-resolved Chest wall contusion entered into EMR and last edited 04/08/22-patient reports resolution Chronic anemia Hypomagnesemia Myalgia Iron deficiency anemia Abnormal CT scan, chest Daytime sleepiness Fatigue GERD (gastroesophageal reflux disease) Leukopenia (Acute) COVID-19 (Acute) Sinus tachycardia Tendinitis of both rotator cuffs Depression Chronic back pain Benign essential hypertension Insomnia (Chronic) Knee osteoarthritis (Chronic) Lumbar radiculopathy (Chronic) Mixed hyperlipidemia Morbid obesity (Chronic) Medical History Expected difficult intubation cervical disc disease, limited cervical ROM, TMD < 3 and Mallampati 3. History of GI bleed (~2020) Difficult intravenous access Snoring Primary osteoarthritis, left shoulder Dizziness PCP monitoring-stable per pt Type 2 diabetes mellitus NIDDM Lumbar radiculopathy Left rotator cuff tear Hx of chest pain patient reports negative cardiac [id number] due to anxiety, not heart issue Mixed hyperlipidemia Benign essential hypertension controlled, stable per pt0 Seasonal allergies Dyspnea on exertion states this has been since having COVID Pneumonia in 2020-denies change or worsening History of COVID-19 Had COVID pneumonia and admitted to [facility] in 2021, no intubation, chronic POLANCO since History of pernicious anemia Acid reflux controlled, stable per pt History of kidney stones Passed on own, no surgery History of skin cancer Leg and face excision Anxiety and depression Morbid obesity Cervical radiculopathy Herniated cervical disc (unsure of exact level) Chronic pain Back-stable per pt-denies recent change or worsening Diabetic peripheral neuropathy feet Generalized osteoarthritis Surgical History Hx of basal cell carcinoma excision Leg, face Hx of esophagogastroduodenoscopy History of carpal tunnel release of both wrists History of ankle surgery right History of colonoscopy History of cholecystectomy History of delivery History of back surgery lumbar fusion Family History Sister Family history of diabetes mellitus Father Family history of diabetes mellitus Diabetes Heart disease Hypertension Myocardial infarction Mother Dementia Asthma Breast cancer Depression Anxiety Hypertension Other Family history of colon cancer in father Denies family history of Ovarian cancer Prostate cancer Alzheimer disease Bipolar disorder Kidney disease Lung cancer COPD (chronic obstructive pulmonary disease) Colorectal cancer Colonic polyp Stroke Social History Smoking Status: Never smoker Second Hand Exposure: No; Do You Dip or Chew Tobacco: No; Hx Alcohol Use: No Hx Substance Use: No Preferred Language: Grenadian Communication Ability: Effective Visual Impairment: No Limitations Hearing Ability: Normal Communication Arts Lecturer Required: No Beliefs That Will Affect Care: None marital status: Current Living Situation: Spouse current occupational status: disabled Feels Safe at Home: Yes Childhood Exposure to Second-Hand Smoke: Yes caffeine: Yes during the past year weight has: remained stable Dental Care, Regularly: No Physical Activity Frequency: Does not Exercise Seatbelt Use: always Sunscreen Use: Yes Assistive Devices: Denture - Upper, Denture - Lower and Glasses Review of Systems All systems reviewed & are unremarkable except as noted in HPI & below Physical Exam Constitutional: Obesity mainly abdominal but moderately advanced in the shoulder area Respiratory: normal respiratory effort; no respiratory distress Cardiovascular: Rate/Rhythm: regular rate and regular rhythm Musculoskeletal: Painful range of motion left shoulder with 40 degrees of active flexion and abduction and 80 degrees passive flexion and abduction only. 3+ out of 5 strength. Circulation sensation intact. Skin: no rashes, warm and dry Neurologic: normal touch/pain/proprioception Psychiatric: A+Ox3, euthymic affect Results & Data Diagnostic Findings Recent x-rays demonstrate proximal humerus fracture with valgus alignment. There is some callus formation consistent with healing. Prior MRI demonstrates massive rotator cuff tear with retraction. Code Status & VTE Plan VTE Prophylaxis Plan VTE Prophylaxis will be ordered: Yes
[~2023-11-25 09:36] MED LIST: BUPIVACAINE 0.5 % 5 MG/1 ML PF 10ML VIAL ONE; DEXAMETHASONE SOD INJ 4 MG/ML VIAL ONE; GLYCOPYRROLATE 0.2 MG/ML VIAL ONE; LIDOCAINE 2% 2 ML VIAL/AMP(20MG/ML) INFIL ONE; MIDAZOLAM HCL 1 MG/ML 2ML VIAL ONE; ONDANSETRON INJ 2 MG/ML 2 ML VIAL ONE; PROPOFOL IV EMULSION 10 MG/ML 20 ML VIAL IV ONE; ROCURONIUM BROMIDE 10 MG/ML 5 ML VIAL IV ONE; SUGAMMADEX SODIUM 200 MG/2 ML VIAL IV ONE; fentaNYL citrate PF 100 MCG/2 ML VIAL ONE
[2023-11-25] MEDS: ACETAMINOPHEN 500 MG TAB PO SCH (10:32)
[2023-11-25] MEDS: FAMOTIDINE 20 MG TAB PO SCH (10:33)
[2023-11-25] MEDS: LR 60ML/HR IV SCH (10:33)
[2023-11-25] MEDS: GABAPENTIN 300 MG CAP PO SCH (10:33)
[2023-11-25] MEDS: METOCLOPRAMIDE HCL 10 MG TABLET PO SCH (10:33)
[2023-11-25] MEDS: LR 15ML/HR IV SCH (10:34)
--- NOTE | 2023-11-25 12:02 | History & Physical Bridge Note ---
Date of Service November 25, 2023 History & Physical Bridge Note I have examined the patient, reviewed the History & Physical and in the interval since the performance of the History & Physical I have noted the following changes of clinical significance: no changes noted
[2023-11-25] MEDS ORDERED: ATROPINE SULFATE 0.1 MG/ML 10ML SYR IV PRN (12:03)
[2023-11-25] MEDS ORDERED: fentaNYL citrate PF 100 MCG/2 ML VIAL IV PRN (12:03)
[2023-11-25] MEDS ORDERED: ONDANSETRON INJ 2 MG/ML 2 ML VIAL IV PRN ×2 (12:03→17:43)
[2023-11-25] MEDS ORDERED: KETOROLAC 30 MG/ML VIAL IV PRN (12:03)
[2023-11-25] MEDS: TRANEXAMIC ACID 1,000 MG **IV Pre-op IV SCH (12:07)
[2023-11-25] MEDS: ceFAZolin 3000MG 3,000 MG/72.5 ML BAG IV SCH (12:25)
[2023-11-25] MEDS ORDERED: fentaNYL citrate PF 100 MCG/2 ML VIAL ONE (15:35)
[2023-11-25] MEDS: TRANEXAMIC ACID 1,000 MG **IV Intra-op IV SCH (15:45)
[2023-11-25] MEDS: THROMBIN 5000 UNITS KIT ONE (16:01)
--- NOTE | 2023-11-25 16:32 | Post Operative Brief Note ---
Immediate Post Op Note Date of Surgery November 25, 2023 Pre & Post Diagnosis Operation Date: 11/25/23 11:50 Pre-Op Diagnosis: Left Proximal Humerus Fracture, Left Shoulder chronic non-traumatic Rotator cuff tear with rotator cuff arthropathy. Morbid obesity BMI 42.1 Post-Op Diagnosis: Left Proximal Humerus Fracture, Left Shoulder massive non-traumatic Rotator cuff tear, anterior dislocation biceps tendon with biceps tendinopathy, angulated proximal humerus fracture near complete healing. Morbid obesity BMI 42.1 I identified the patient and participated in the time-out.: Yes Procedure Operation Date: 11/25/23 11:50 Actual Procedures p left fracture reversed Total Shoulder Arthroplasty, Osteotomies Greater and Lesser Tuberosities with Repairs, Biceps Tenodesis(Left), increased difficulty obesity BMI 42.1- Mesfin Rios MD Surgeon Mesfin Rios MD Fish Boning Machine Feeder Hank LOMAX Estimated Blood Loss 200 Findings Consistent with Post-Op Diagnosis Specimens Bone humeral head Drains Hemovac Drain Anesthesia Type General Regional Complications none Disposition Disposition: Recovery Room Overlapping Procedure I was immediately available: during the entire case.
--- NOTE | 2023-11-25 16:52 | Operative Report ---
Post Operative Report Pre & Post Diagnosis Operation Date: 11/25/23 11:50 Pre-Op Diagnosis: Left shoulder subacute angulated and displaced proximal humerus fracture, chronic massive nontraumatic rotator cuff tear with rotator cuff arthropathy. Morbid obesity BMI 42.1. Post-Op Diagnosis: Left shoulder subacute angulated and displaced proximal humerus fracture, chronic massive nontraumatic rotator cuff tear with rotator cuff arthropathy, biceps tendon dislocation with biceps tendinopathy, morbid obesity BMI 42.1. I identified the patient and participated in the time-out.: Yes Procedure Operation Date: 11/25/23 11:50 Actual Procedures Left shoulder fracture reversed total Shoulder Arthroplasty, Osteotomies Greater and Lesser Tuberosities with bone grafting and repairs, Biceps Tenodesis(Left), increased difficulty BMI 42.1.- Mesfin Rios MD Surgeon Mesfin Rios MD Batch Heat Treat Operator Hank LOMAX Estimated Blood Loss 200 Findings Consistent with Post-Op Diagnosis Specimens Humeral head fragments Drains 2 Hemovac Anesthesia Type General Regional Complications none Disposition Disposition: Recovery Room Indications 67-year-old female with known massive rotator cuff tear. She was living with condition and had an acute fall and sustained a proximal humerus fracture with angulation and some displacement as well. Delayed presentation 1 month from injury. Already has some healing response but very poor function and painful shoulder with pseudoparalysis. Description of Procedure Patient was taken to the operating room anesthetized under regional block and general anesthetic. Patient was placed in the beachchair position. A towel roll was placed under the medial border of the left scapula. The head was p laced on a foam headrest. Protective eyewear was placed. SCDs were placed. All extremities were well-padded. Shoulder exam demonstrated very obese shoulder and arm. Good passive range of motion.. The shoulder was sterilely prepped and draped in usual sterile fashion with ChloraPrep. An anterior deltopectoral approach was performed. The skin was incised sharply in longitudinal fashion. Subcutaneous deep flaps were elevated. The deltopectoral interval was identified. This was scarred from the trauma. The cephalic vein had a normal caliber and we retracted this laterally with the deltoid.. The deltopectoral interval was developed. The conjoined tendon was identified and retracted medially. The scarred clavipectoral fascia was divided at the lateral margin the conjoined tendon. The upper 1 cm of the pectoralis was released for inferior exposure. The biceps tendon findings demonstrated biceps tenosynovitis with a tear of the upper third of the subscapularis with anterior dislocation of the biceps tendon and tendinopathy and widening standing into the joint.. Biceps tendon was tenodesed to the pectoralis tendon using [id number] and whipstitch type #2 FiberWire sutures. Biceps tendon was divided proximal to the tenodesis. The fracture pattern demonstrated the humeral head was translated laterally and somewhat anteriorly and angulated apex medial. There was si gnificant callus across the fracture site and there was compression of the head over the shaft with impaction and there was only micromotion and near complete healing. The supraspinatus and infraspinatus were completely torn and retracted and there was some teres minor that was still intact posteriorly which was the only posterior rotator cuff that was intact. Vicryl sutures were placed into the subscapularis tendon and the teres minor tendons to control the tuberosity fractures. Osteotomies were performed taking the lesser tuberosity with the subscapularis and some of the greater tuberosity with the teres minor. I did use a proximal humeral cutting guide to make a provisional cut but after I made that cut was clear that there was scar tissue and incomplete healing of the head to the shaft and there was some micromotion so I proceeded to remove the remaining humeral head fragment and freed up off of the shaft and maintain the shaft intact without any bone loss there. I did tie off the circumflex vessels anteriorly and they were cauterized laterally. Debris was irrigated out of the glenohumeral joint. The glenoid findings demonstrated some discoloration of the glenoid articular cartilage possibly related to bleeding and hemosiderin. There was intact articular cartilage throughout the glenoid. Remnants of the biceps tendon and labrum were completely excised.. The Tornier reverse total shoulder replacement was utilized with the Tornier fracture stem. Glenoid exposure achieved by performing anterior-inferior and posterior capsule release and triceps tendon release. Dissection was performed on bone to protect the axillary nerve. Retractors were placed to expose the glenoid. Any remaining cartilage on the glenoid was removed with a curette. The glenoid was sized for a 25 millimeter baseplate. The guide for the aequalis baseplate was positioned in about 10 degrees of inferior tilt and central drill hole was made. The reamer was used. The bone quality was good. The central drill hole was widened for the post. The glenoid was irrigated with pulsatile lavage saline solution. The 25 mm standard post aequalis hydroxyapatite-coated baseplate was impacted into position with excellent fit. This was transfixed with superior and inferior locking screws and anterior posterior compression screws. The 36 x 25 centered glenoid sphere was impacted onto the baseplate and the security screw tightened. This was checked for stability and was intact and stable. Attention taken to the humerus. Humeral canal was reamed and size 7 millimeters stem was chosen. Height of the implant when impacted was documented and rotation was placed with the rotational nasir in line with the forearm. Trial reduction demonstrated that a size 12 trial polyethylene insert gave stability and no shuck. The trial was removed and the canal was irrigated with pulsatile lavage saline solution. Four #5 FiberWire sutures were first passed around the posterior greater tuberosity fragments. Two #5 FiberWire sutures were placed through drill holes into the shaft and docked for later tying. The cement restrictor was placed at the appropriate depth in the canal of the humerus. Bone graft was harvested from the humeral head and the bone graft inserted into the hole in the humeral implant. The 7 x 130 mm aequalis fracture reversed stem humeral implant was cemented into position with Palacos G cement. After the cement cured the 12 reversed polyethylene insert was impacted into the humeral implant. Sutures were placed around the stem and then the implant was reduced and then irrigation performed with Xperience. With traction there was no shuck noted. 4 tails of the suture were passed around the implant prior to reducing it to the glenoid sphere. The tuberosities posteriorly were then sutured to the stem after placing bone graft between the hydroxyapatite portion of the stem the shaft and the tuberosity fragments. The arm was rotated and the posterior tub erosities were secured with rotation. Sutures were then passed around the lesser tuberosity fragments through the subscap tendon and then bone graft was placed underlying these fragments and the humeral implant and the shaft area. The other two #5 FiberWire sutures were tied around the lesser tuberosity fragment suturing that to the shaft and the lesser to the greater tuberosity fragments together. The Vicryl sutures were tied to each other for added security. The shaft sutures were placed in [id number] fashion around the tuberosity fracture fragments anteriorly and posteriorly to secure the tuberosity fracture fragments to the shaft. The repair was stable with passive range of motion and range of motion was 150 degrees of forward flexion 90 degrees of abduction and 60 degrees of internal/external rotation without any tension on repair. The pectoralis tendon was repaired with [id number] #2 FiberWire sutures. The sutures were passed through the biceps tendon to reinforce the biceps tenodesis. After further irrigation with a Xperience 2 Hemovac drains were brought out laterally. The deltopectoral interval was repaired with [id number] #1 Vicryl sutures. The subcutaneous tissue closed into 2-0 Vicryl sutures. Skin was closed with nilo. A Silverlon sterile dressing was applied and a shoulder immobilizer. Hank LOMAX was my assistant food service director and assisted throughout the procedure including prepping draping arm positioning soft tissue retraction suture management wound closure and postop care the patient. Was increased level difficulty due to her obesity and estimated increased time for surgery was 40 minutes. I attest to the content of the Intraoperative Record and any orders documented therein. Any exceptions are noted below.
--- NOTE | 2023-11-25 16:55 | Anesthesiology Progress Note ---
Date of Service November 25, 2023 Anesthesia Post Procedure Vital Signs Vital Signs: Temp Pulse Pulse Resp BP Pulse Ox O2 Del Method 11/25/23 16:50 94 H 23 130/62 99 Oxymask 11/25/23 16:40 86 18 163/75 H 100 Oxymask 11/25/23 16:32 36.2 C L 89 13 149/85 H 95 Oxymask 11/25/23 10:18 37.1 C 94 H 20 145/66 H 95 Room Air O2 Flow Rate 11/25/23 16:50 10 11/25/23 16:40 10 11/25/23 16:32 10 11/25/23 10:18 Pain Intensity Left Shoulder: Pain Intensity: 3 Transfer of Care Handoff Completed per policy Notes Mental Status: alert / awake / arousable and participated in evaluation Patient Amnestic to Procedure: Yes Nausea / Vomiting: adequately controlled Pain: adequately controlled Airway Patency, RR, SpO2: stable & adequate BP & HR: stable & adequate Hydration State: stable & adequate Anesthetic Complications: no major complications apparent and Pt Satisfied with anesthetic care
--- NOTE | 2023-11-25 17:13 | XRay Report ---
LEFT SHOULDER 2 VIEWS CLINICAL HISTORY: Postoperative examination. FINDINGS: 2 portable views of the left shoulder are compared to study dated 11/23/2019. The skeletal s tructures are osteopenic. A left shoulder arthroplasty is in near anatomic alignment. No acute fractu re is seen. Skin clips, subcutaneous gas, a drain, and soft tissue swelling overlying the left should er are expected postsurgical changes. Productive degenerative change is noted at the acromioclavicula r joint. Atelectasis is seen at the left lung base. IMPRESSION: Expected postoperative findings status post left shoulder arthroplasty. No acute fracture is seen. Electronically signed by: Steve Almanzar M.D. 11/25/2023 5:12 PM
[2023-11-25] MEDS ORDERED: NALOXONE HCL 0.4 MG/1 ML VIAL/CARP IV PRN (17:43)
[2023-11-25] MEDS ORDERED: bisacodyL 10 MG SUPP PR PRN (17:43)
[2023-11-25] MEDS ORDERED: diphenhydrAMINE 50 MG/ML VIAL IV PRN (17:43)
[2023-11-25] MEDS ORDERED: NITROGLYCERIN SL 0.4 MG/TAB TAB SL PRN (17:43)
[2023-11-25] MEDS ORDERED: PHARMACY GLYCEMIC MGMT CONSULT PRN (17:43)
[2023-11-25] MEDS ORDERED: HYDROCODONE/ACETAMINOPHEN 7.5/325MG TAB PO PRN (17:43)
[2023-11-25] MEDS ORDERED: MAGNESIUM HYDROXIDE SUSP 30 ML UDC PO PRN (17:43)
[2023-11-25] MEDS ORDERED: HYDROmorphone INJ 0.5 MG/0.5 ML SYR IV PRN (17:43)
[2023-11-25] MEDS ORDERED: FLUTICASONE PROPIONATE NA SPR 16 GM BTL PRN (17:43)
[2023-11-25] MEDS ORDERED: CARBOHYDRATES FOR HYPOGLYCEMIA PO PRN (18:15)
[2023-11-25] MEDS ORDERED: GLUCOSE 10 TAB/TUBE PO PRN (18:15)
[2023-11-25] MEDS ORDERED: GLUCOSE 40% GEL 15 GM TUBE PO PRN (18:15)
[2023-11-25] MEDS ORDERED: DEXTROSE 50% 50 ML SYRINGE IV PRN (18:15)
[2023-11-25] MEDS ORDERED: GLUCAGON FOR INJ 1 MG VIAL IM PRN (18:15)
[2023-11-25] MEDS: Nursing to Pharmacy Communication SCH (19:21)
[2023-11-25] MEDS ORDERED: Nursing to Pharmacy Communication SCH (19:30)
[2023-11-25] MEDS: SODIUM CHLORIDE 0.9% 1,000 ML IV SCH (19:32)
[2023-11-25] MEDS: POTASSIUM CHLORIDE CRTAB 20 MEQ TABCR PO SCH (20:05)
[2023-11-25] MEDS: SENNA 8.6 MG TAB PO SCH (20:05)
[2023-11-25] MEDS: MIRTAZAPINE SOLTAB 15 MG PO SCH (20:06)
[2023-11-25] MEDS: FERROUS GLUCONATE 324 MG TAB PO SCH (20:07)
[2023-11-25] MEDS: LOVASTATIN 20 MG TAB PO SCH (20:07)
[2023-11-25] MEDS: MAGNESIUM OXIDE 400 MG TAB PO SCH (20:08)
[2023-11-25] MEDS: busPIRone 7.5 MG TAB PO SCH (20:08)
[2023-11-25] MEDS: DULoxetine HCL 60 MG CAP PO SCH (20:08)
[2023-11-25] MEDS: DOCUSATE SODIUM 100 MG CAP PO SCH (20:08)
[2023-11-25] MEDS ORDERED: LANTUS PER UNIT CHARGE SC SCH (21:00)
[2023-11-25] MEDS: INSULIN ASPART PER UNIT CHARGE SC SCH (21:19)
[2023-11-25] MEDS: ceFAZolin 2000MG 2,000 MG/15 ML SYR IV SCH (22:24)
[2023-11-26 06:50] LABS: Basophils # (auto) 0.01 K/uL (0.00-0.20); Basophils % (auto) 0.2 %; Eosinophils # (auto) 0.01 K/uL (0.00-0.50); Eosinophils % (auto) 0.2 %; Hematocrit (blood only) 27.6 % (37.0-47.0); Hemoglobin 9.7 g/dl (12.0-16.0); Immature Granulocytes # (auto) 0.02 K/uL (0.01-0.20); Immature Granulocytes % (auto) 0.4 %; Lymphocytes # (auto) 0.68 K/uL (1.20-3.40); Lymphocytes % (auto) 12.5 %; Mean Corpuscular Hemoglobin 31.5 pg (25.0-34.0); Mean Corpuscular Hgb Conc 35.1 g/dL (32.0-36.0); Mean Corpuscular Volume 89.6 fL (80.0-100.0); Mean Platelet Volume 9.6 fL (9.4-12.4); Monocytes # (auto) 0.31 K/uL (0.11-0.59); Monocytes % (auto) 5.7 %; Neutrophils # (auto) 4.42 K/uL (1.40-6.50); Platelet Count 130 K/uL (130-400); RDW Coefficient of Variation 13.4 % (11.5-14.5); RDW Standard Deviation 43.7 fL (36.4-46.3); Red Blood Count 3.08 M/uL (4.20-5.40); White Blood Count 5.45 K/ul (4.8-10.8)
[2023-11-26 07:12] LABS: BUN Creatinine Ratio 22.9 (10-20); Calcium 8.6 mg/dl (8.6-10.3); Creatinine Clr Calc Pharmacy 87.8 ml/min; Est GFR (Non-African American) 72.5 ml/min; Potassium 3.9 mmol/L (3.5-5.1)
[2023-11-26 07:54] VITALS: RESP 16; TEMP 98.2
--- NOTE | 2023-11-26 08:13 | Orthopedic Progress Note ---
Date of Service November 26, 2023 Assessment & Plan (1) Status post reverse total shoulder replacement: Plan: Postop day 1 shoulder replacement fracture reverse replacement repair tuberosities and bone grafting. Patient comfortable doing well. Plan is to discharge home. Do some home exercises and continue with sling. Follow-up in 2 weeks for staple removal in office. Admission and Anticipated Discharge Date Admission Date: November 25, 2023 Subjective Still under the effects of nerve block does not have full motor or sensory function back yet. No pain. Physical Exam Physical Exam: Dressing intact with Silverlon dressing. Minimal bleeding within dressing. Sling intact. Still under effects of nerve block with some return of motor or sensory function only. Results & Data Vital Signs (Past 12 Hours) Vital Signs Temp Pulse Pulse Resp BP Pulse Ox O2 Del Method 11/26/23 07:53 36.8 C 104 H 16 125/76 96 Room Air 11/26/23 03:43 37.0 C 101 H 18 128/60 93 Room Air 11/26/23 00:26 36.9 C 100 H 18 156/75 H 93 Room Air 11/25/23 21:00 36.8 C 89 18 133/68 94 Room Air (1) Status post reverse total shoulder replacement Laterality: left Qualified Code(s): Z96.612 - Presence of left artificial shoulder joint
[2023-11-26] MEDS: VALSARTAN 80 MG TAB PO SCH (08:22)
[2023-11-26] MEDS: PANTOprazole 40 MG TAB PO SCH (08:22)
[2023-11-26] MEDS: hydroCHLOROthiazide 25 MG TAB PO SCH (08:22)
[2023-11-26] MEDS: MULTIVITAMIN TAB PO SCH (08:23)
[2023-11-26] MEDS: METOPROLOL SUCC 25MG EXT REL TAB PO SCH (08:23)
[2023-11-26] MEDS: ASPIRIN 81 MG ECTAB PO SCH (08:23)
[2023-11-26] MEDS: CETIRIZINE HCL 10 MG TABLET PO SCH (08:23)
[2023-11-26] MEDS: LANTUS PER UNIT CHARGE SC SCH (08:42)
--- NOTE | 2023-11-26 09:41 | Hospitalist Consultation ---
Date of Consultation November 26, 2023 Assessment & Plan (1) Status post reverse total shoulder replacement: (2) GERD (gastroesophageal reflux disease): (3) Benign essential hypertension: (4) Mixed hyperlipidemia: (5) Type 2 diabetes mellitus: Plan S/p orthopedics surgery (POD #1) - Long history of left rotator cuff tear; also found to have left humerus fracture - left shoulder replacement fracture reverse replacement repair tuberosities and bone grafting - No fevers and pain is well controlled - Patient currently stable - Ortho (primary service) to discharge patient today - F/u with ortho for post-op evaluation as an outpatient as well as PCP Recurrent Falls // Dizziness with turning - Patient states mother had similar symptoms - Has been discussing this with PCP, as per patient - Refers long course of inner ear infection on May, and since then has been having dizziness when turning around leading to falls - Denies weakness, sensory changes, chest pain, SOB, POLANCO, or any other symptom - Suspect possible vestibular component leading to falls, but would advise further evaluation with PCP as outpatient if appropriate DM Type 2 - Hyperglycemia on admission - Hgb A1c 6.3% (11/18/23) - May continue home glycemic regimen after discharge - Encourage continued PCP f/u HTN - BP well controlled during current admission - Continue home metoprolol and Valsartan-HCTZ HLD - Continue home lovastatin Patient currently stable. Would encourage continued outpatient follow up of chronic conditions and evaluation of recurrent dizziness with turning as this has lead to frequent falls. We will sign off. Thank you for this consult. Please reach out to us if there are any questions. Supervising Physician Co-Signing Physician Notes Patient was discharged today and left before I got to seeing her. History of Present Illness Reason for Consultation: post-op management Requesting Physician: Mesfin Rios MD Attending Physician: Mesfin Rios MD History of Present Illness Patient is a 67 y/o female with PMHx of T2DM, anxiety/depression, HLD, GERD, and HTN who is POD#1 after left shoulder replacement fracture reverse replacement repair tuberosities and bone grafting. She has history of recurrent falls (3 in the last year) due to feeling some dizziness when she turns around rapidly. She has history of left rotator cuff tear and after one of her falls a fracture of her proximal humerus, which lead to limited function of the affected extremity. This is what prompted the decision to proceed with surgery for repair. Patient tolerated procedure and has remained without fever since. Currently feeling well and pain is well controlled at the time. Allergies Allergy/AdvReac Type Severity Reaction Status Date / Time Sulfa (Sulfonamide Allergy Severe Anaphylaxis Verified 11/25/23 10:12 Antibiotics) meclizine Allergy Intermediate Headache Verified 11/25/23 10:12 acetaminophen [From Percocet] AdvReac Mild N/V Verified 11/25/23 10:12 oxycodone [From Percocet] AdvReac Mild Nausea Verified 11/25/23 10:12 Home Medications Medication Instructions Recorded Confirmed Type cetirizine 10 mg tablet 10 mg PO QAM 12/26/18 11/25/23 History cyanocobalamin (vitamin B-12) 50 1,000 mcg PO QAM 03/01/21 11/25/23 History mcg tablet (Vitamin B-12) aspirin 81 mg capsule 81 mg PO QAM 03/26/21 11/25/23 History melatonin 10 mg tablet 10 mg PO HS 03/26/21 11/25/23 History glimepiride 4 mg tablet 4 mg PO BID #180 tabs 10/03/22 11/25/23 Rx mirtazapine 45 mg tablet 45 mg PO QPM #90 tabs 10/03/22 11/25/23 Rx ferrous gluconate 324 mg (38 mg 324 mg PO BID #180 tabs 03/02/23 11/25/23 Rx iron) tablet OneTouch UltraSoft 2 Lancet 30 #100 ea 04/09/23 11/20/23 Rx gauge (lancets) dulaglutide 4.5 mg/0.5 mL 4.5 mg (0.5 mL) subcut .weekly #6 04/09/23 11/25/23 Rx subcutaneous pen injector mL (Trulicity) nitroglycerin 0.4 mg sublingual 0.4 mg sublingual Q5M PRN chest 04/27/23 11/25/23 Rx tablet pain #25 tabs metformin 1,000 mg tablet 1,000 mg PO BID #180 tabs 05/04/23 11/25/23 Rx insulin glargine 100 unit/mL (3 22 unit subcut QAM 05/22/23 11/25/23 History mL) subcutaneous pen (Lantus Solostar U-100 Insulin) omeprazole 40 mg capsule,delayed 40 mg PO QAM #90 caps 06/22/23 11/25/23 Rx release potassium chloride 10 mEq 20 meq (2 x 10 mEq) PO BID #360 07/02/23 11/25/23 Rx capsule,extended release caps lancets 30 gauge (OneTouch #300 ea 07/17/23 11/20/23 Rx UltraSoft 2 Lancet) triamcinolone acetonide 0.1 % 1 applic topical BID PRN itching 07/17/23 11/25/23 Rx topical cream #80 grams valsartan 320 1 tab PO QAM #90 tabs 07/17/23 11/25/23 Rx mg-hydrochlorothiazide 25 mg tablet OneTouch Ultra Test (blood sugar #100 ea 08/19/23 11/20/23 Rx diagnostic) buspirone 15 mg tablet 7.5 mg (1/2 x 15 mg) PO BID #90 08/27/23 11/25/23 Rx tabs duloxetine 60 mg capsule,delayed 60 mg PO BID #180 caps 09/14/23 11/25/23 Rx release pen needle, diabetic 32 gauge x #100 ea 09/22/23 11/20/23 Rx 5/32" (BD Ultra-Fine Skylar Pen Needle) lovastatin 40 mg tablet 40 mg PO HS #90 tabs 10/22/23 11/25/23 Rx hydrocodone 7.5 mg-acetaminophen 1 tab PO Q6H PRN pain #120 tabs 10/23/23 11/25/23 Rx 325 mg tablet ascorbic acid (vitamin C) 250 mg 250 mg PO BID #180 tabs 11/16/23 11/25/23 Rx tablet fluticasone propionate 50 2 spray intranasal UD PRN allergies 11/17/23 11/25/23 History mcg/actuation nasal spray,suspension magnesium oxide 400 mg (241.3 mg 400 mg PO BID 11/17/23 11/25/23 History magnesium) tablet (MagOx) metoprolol succinate 25 mg 25 mg PO QAM 11/17/23 11/25/23 History tablet,extended release 24 hr vitamin B complex 1 cap PO QAM 11/17/23 11/25/23 History nitrofurantoin 100 mg PO Q12H 5 days #10 caps 11/20/23 11/25/23 Rx monohydrate/macrocrystals 100 mg capsule (Macrobid) Patient History Medical History Expected difficult intubation cervical disc disease, limited cervical ROM, TMD < 3 and Mallampati 3. History of GI bleed (~2020) Difficult intravenous access Snoring Primary osteoarthritis, left shoulder Dizziness PCP monitoring-stable per pt Type 2 diabetes mellitus NIDDM Lumbar radiculopathy Left rotator cuff tear Hx of chest pain patient reports negative cardiac [id number] due to anxiety, not heart issue Mixed hyperlipidemia Benign essential hypertension controlled, stable per pt0 Seasonal allergies Dyspnea on exertion states this has been since having COVID Pneumonia in 2020-denies change or worsening History of COVID-19 Had COVID pneumonia and admitted to [facility] in 2021, no intubation, chronic POLANCO since History of pernicious anemia Acid reflux controlled, stable per pt History of kidney stones Passed on own, no surgery History of skin cancer Leg and face excision Anxiety and depression Morbid obesity Cervical radiculopathy Herniated cervical disc (unsure of exact level) Chronic pain Back-stable per pt-denies recent change or worsening Diabetic peripheral neuropathy feet Generalized osteoarthritis Surgical History Hx of basal cell carcinoma excision Leg, face Hx of esophagogastroduodenoscopy History of carpal tunnel release of both wrists History of ankle surgery right History of colonoscopy History of cholecystectomy History of delivery History of back surgery lumbar fusion Family History Sister Family history of diabetes mellitus Father Family history of diabetes mellitus Diabetes Heart disease Hypertension Myocardial infarction Mother Dementia Asthma Breast cancer Depression Anxiety Hypertension Other Family history of colon cancer in father Denies family history of Ovarian cancer Prostate cancer Alzheimer disease Bipolar disorder Kidney disease Lung cancer COPD (chronic obstructive pulmonary disease) Colorectal cancer Colonic polyp Stroke Social History Smoking Status: Never smoker Second Hand Exposure: No; Do You Dip or Chew Tobacco: No; Tobacco Cessation Education Requested by Patient: No Hx Alcohol Use: No Hx Substance Use: No Preferred Language: [place] Communication Ability: Effective Visual Impairment: No Limitations Hearing Ability: Normal It Professional Required: No Beliefs That Will Affect Care: None marital status: Current Living Situation: Spouse current occupational status: disabled Other Information That Helps Us Care for You: No Feels Safe at Home: Yes Safety Concerns: Feels Safe At This Time Childhood Exposure to Second-Hand Smoke: Yes caffeine: Yes during the past year weight has: remained stable Dental Care, Regularly: No Physical Activity Frequency: Does not Exercise Seatbelt Use: always Sunscreen Use: Yes Assistive Devices: None Review of Systems Review of Systems: As per HPI. Physical Exam Physical Exam: GENERAL: aaox3, afebrile, calm, NAD HEAD: AT, NC EYES: EOM intact, no conjunctival injection or scleral icterus THROAT: normal to visual exam CARDIO: RRR, no r/m/g RESPIRATORY: CTA, normal respiratory effort, no respiratory distress GI: soft, nontender, non-distended EXTREMITIES: no swelling or calf tenderness in b/l LE, left UE in sling with bandages over anterior aspect of shoulder that is c/d/i, drain in left UE SKIN: no rashes Results & Data Results & Data Vital Signs (Past 12 Hours) Vital Signs Temp Pulse Pulse Resp BP Pulse Ox O2 Del Method 11/26/23 08:28 109 H 118/71 95 Room Air 11/26/23 07:53 36.8 C 104 H 16 125/76 96 Room Air 11/26/23 03:43 37.0 C 101 H 18 128/60 93 Room Air 11/26/23 00:26 36.9 C 100 H 18 156/75 H 93 Room Air Resident Activity Tracking Resident Involvement: Resident Care Provided Care Provided: Adult Hospital Medicine (1) Status post reverse total shoulder replacement Laterality: left Qualified Code(s): Z96.612 - Presence of left artificial shoulder joint
[2023-11-26 11:09] VITALS: BP 132/69; PULSE 98; O2SAT 97
--- NOTE | 2023-11-26 12:25 | Pharmacy Report ---
Pharmacy Glycemic Short Note 2 - Date of Service November 26, 2023 - Glycemic Short BSG Results (Last 24 hours): 11/25/23 11/25/23 11/25/23 16:35 20:44 20:46 Glucose POC Glucose 144 H 308 H* 311 H* 11/26/23 11/26/23 06:11 07:23 Glucose 203 H POC Glucose 205 H OUTPATIENT ANTIDIABETIC REGIMEN: * glimepiride 4 mg BID * Lantus 22 units qAM * Trulicity * A1c 6.3% 11/18/23 ASSESSMENT: * Patient was admitted post op total shoulder arthroplasty, received 8 units of dexamethasone in OR yesterday * BSGs elevated last PM, home dose was documented as received yesterday AM but no additional basal was administered * Fasting elevated this morning, suspect d/t steroids, no further steroids scheduled. Will continue current novolog parameters for now but could consider tightening if further steroids/remain elevated. * Home basal scheduled. PLAN FOR INPATIENT GLYCEMIC CONTROL: * Hold outpatient oral diabetes medications * Basal insulin * Lantus 20 units sq QAM * Bolus insulin * NovoLog per scale ACHS or Q6hrs while NPO * Goal Range: Low 110 mg/dL - High 140 mg/dL * Correction Factor: 20 mg/dL/unit * Nutritional / Prandial insulin per carb ratio of 1 unit per 6 grams CHO consumed
--- NOTE | 2023-11-27 16:04 | Discharge Summary ---
Date of Service November 27, 2023 Admission HPI Per Admitting Provider 67-year-old female with a known massive rotator cuff tear of the left shoulder. She was compensating for this but had an injury and now has substantial increase more pain in her shoulder. Initially it was felt that she just reinjured her rotator cuff however upon x-rays and evaluation in the orthopedic office it was noted that she now has a proximal humerus fracture which is malaligned in addition to the massive rotator cuff tear. Patient denies headaches, sweats, fevers, chills, double vision, blurred vision, cough, sore throat, dysphagia, chest pain, sob, wheezing, n/v/d/c, numbness, tingling, fatigue, urinary symptoms, mood disorders. ROS positive for hypertension, high cholesterol, anxiety/depression, extremity numbness, shortness of breath with housework running short distance walking up a hill climbing a flight of stairs she is diabetic getting insulin treatment she has arthritis in the spine she is obese and has had kidney stones. Admission Exam Per Admitting Provider Physical Exam Constitutional: Obesity mainly abdominal but moderately advanced in the shoulder area Respiratory: normal respiratory effort; no respiratory distress Cardiovascular: Rate/Rhythm: regular rate and regular rhythm Musculoskeletal: Painful range of motion left shoulder with 40 degrees of active flexion and abduction and 80 degrees passive flexion and abduction only. 3+ out of 5 strength. Circulation sensation intact. Skin: no rashes, warm and dry Neurologic: normal touch/pain/proprioception Psychiatric: A+Ox3, euthymic affect Principal Diagnosis Left Proximal Humerus Fracture; Rotator Cuff Tear Discharge Data Allergies Allergy/AdvReac Type Severity Reaction Status Date / Time Sulfa (Sulfonamide Allergy Severe Anaphylaxis Verified 11/25/23 10:12 Antibiotics) meclizine Allergy Intermediate Headache Verified 11/25/23 10:12 acetaminophen [From Percocet] AdvReac Mild N/V Verified 11/25/23 10:12 oxycodone [From Percocet] AdvReac Mild Nausea Verified 11/25/23 10:12 Procedures Performed Operation Date: 11/25/23 11:50 Actual Procedures p Reverse Fractured Left Total Shoulder Arthroplasty, Osteotomies Greater and Lesser Tuberosities with Repairs, Biceps Tenodesis(Left) - Mesfin Rios MD Ordered Studies 11/25/23 05:00 US - OR guided needle placemen Routine Hospital Course (1) Status post reverse total shoulder replacement: Patient: SAAD MCKEON Admit Date: 11/25/23 MR#: [id number] Att Phy: Mesfin Rios M.D. Acct ID: [id number] Ying Phy: Steve Pierre MD Date: 1955 Fam Phy: Age: 67 Location: 3E Sex: F Room/Bed: [facility] cc: ~ *NOTICE TO RECEIVING DEMOCRAT/AGENCY This information is strictly Confidential and protected under [place] law. [place] law prohibits you from making any further disclosure of this information unless further disclosure is expressly permitted by the written consent of the person to whom it pertains or is authorized by law. A general authorization for the release of medical or other information is not sufficient for this purpose. Hospital accepts no responsibility if the information is made available to any other person, INCLUDING THE PATIENT. Date of Service November 26, 2023 Assessment & Plan (1) Status post reverse total shoulder replacement: Plan: Postop day 1 shoulder replacement fracture reverse replacement repair tubero sities and bone grafting. Patient comfortable doing well. Plan is to discharge home. Do some home exercises and continue with sling. Follow-up in 2 weeks for staple removal in office. Admission and Anticipated Discharge Date Admission Date: November 25, 2023 Subjective Still under the effects of nerve block does not have full motor or sensory f unction back yet. No pain. Physical Exam Physical Exam: Dressing intact with Silverlon dressing. Minimal bleeding within dressing. Sling intact. Still under effects of nerve block with some return of motor or sensory function only. Results & Data Vital Signs (Past 12 Hours) Vital Signs Temp Pulse Pulse Resp BP Pulse Ox O2 Del Method 11/26/23 07:53 36.8 C 104 H 16 125/76 96 Room Air 11/26/23 03:43 37.0 C 101 H 18 128/60 93 Room Air 11/26/23 00:26 36.9 C 100 H 18 156/75 H 93 Room Air 11/25/23 21:00 36.8 C 89 18 133/68 94 Room Air (1) Status post reverse total shoulder replacement Laterality: left Qualified Code(s): Z96.612 - Presence of left artificial shoulder joint Signed By: <Electronically signed by eMsfin Rios MD> 11/26/23 0813 Created: 11/26/23 0810 Total Time Total Time Spent Total Time Spent (In Minutes): 5 Discharge Plan Discharge Items Patient Disposition: Home - Self-Care Reason For Visit: Left Proximal Humerus Fracture, Left Shoulder Rota Discharge Diagnosis: left shoulder DJD; rotator cuff arthropathy; left proximal humerus fracture Activity: Per Instructions section Weightbearing: Left non-weightbearing Non-emergency contact: Surgeon Call non-emergency contact if: you have any medication questions, your pain is not controlled, your temperature is above 101.5, your wound has increased redness and your wound has increased drainage Follow-up/Referrals: Steve Pierre MD [Primary Care Provider] - Mesfin Rios MD [Surgeon] - ( follow-up with Dr. Rios in 2 weeks from the date of your surgery for your first postoperative visit) Diet: Carb Consistent or DM2 Addtl Attending Provider Instructions: ACTIVITY RECOMMENDATIONS: SELF CARE INSTRUCTIONS AFTER TOTAL SHOULDER ARTHROPLASTY REVERSE A. You may do daily exercises as taught in physical therapy while in hospital. No lifting with the operative arm. B. You are to wear your sling/immobilizer at all times EXCEPT when performing your daily exercises and for hygiene purposes. C. You may perform dry, daily dressing changes. Please keep your incision covered. You may shower 48 hours after surgery. Do not apply soap or any ointment/lotions directly over incision. Do not soak incision in bath tub/swimming pool. D. You may use ice as needed to operative shoulder. E. Silverlon- This is a large adhesive bandage that contains silver ions. This helps your incision heal by fighting off bacteria and protecting it from the outside environment. You are permitted to shower with this dressing. This will remain on your incision for 7 days and then should be removed. Some visible blood or drainage through the dressing window is normal. If there is significant drainage or leaking noted before the 7 days notify your doctor's office immediately. Once removed, keep incision clean and dry. If there is any drainage or redness noted, please call your surgeon. SPECIAL CARE INSTRUCTIONS: VERY IMPORTANT TO READ AND REVIEW A. There are a few signs you need to watch for after you are home. Call [facility] at [phone] if you experience any of the followin. Increased severe shoulder pain. Some pain is expected especially when you exercise. 2. Increased swelling in you shoulder or arm; pain or swelling in either upper extremity. 3. Any fluid drainage from the incision. 4. Shortness of breath or chest pain. B. Please call [facility] at [phone] if you have any questions or concerns about your operation or recovery. C. Call your physician if: 1. Temperature is greater than 101 degrees (F). 2. Pain is not relieved by prescribed pain medications. 3. Increase drainage or redness from incision. 4. Unanswered questions or concerns. FOLLOW UP VISIT: Please call [facility] at [phone] to schedule a follow up appointment with Dr. Rios or his PA in 12-14 days from your surgery date. Stand-Alone Forms: My [facility] En Noir, Pain - Opioid Pain Management, Smoking Cessation Medications and DC Order Prescriptions: Continued mirtazapine 45 mg tablet 45 mg PO QPM Qty: 90 3RF glimepiride 4 mg tablet 4 mg PO BID Qty: 180 3RF Rx Instructions: take prior to breakfast and supper. ferrous gluconate 324 mg (38 mg iron) tablet 324 mg PO BID Qty: 180 3RF (DME) lancets [OneTouch UltraSoft 2 Lancet] 30 gauge misc See Rx Instructions .Route Qty: 100 3RF Rx Instructions: As directed to test blood sugar two times a day; E11.9 metformin 1,000 mg tablet 1,000 mg PO BID Qty: 180 3RF omeprazole 40 mg capsule,delayed release(DR/EC) 40 mg PO QAM Qty: 90 3RF potassium chloride 10 mEq capsule, extended release 20 meq PO BID Qty: 360 3RF valsartan-hydrochlorothiazide 320-25 mg tablet 1 tab PO QAM Qty: 90 3RF (DME) OneTouch Ultra Test Strip See Rx Instructions .Route Qty: 100 3RF Rx Instructions: As directed to test sugar two times a day; dx E11.9 buspirone 15 mg tablet 7.5 mg PO BID Qty: 90 3RF Rx Instructions: for anxiousness duloxetine 60 mg capsule,delayed release(DR/EC) 60 mg PO BID Qty: 180 3RF Rx Instructions: For pain and mood (DME) pen needle, diabetic [BD Ultra-Fine Skylar Pen Needle] 32 gauge x 5/32" needle See Rx Instructions .Route Qty: 100 2RF Rx Instructions: As directed to inject insulin once a day but twice on thursday ascorbic acid (vitamin C) 250 mg tablet 250 mg PO BID Qty: 180 3RF nitroglycerin 0.4 mg tablet, sublingual 0.4 mg sublingual Q5M PRN (Reason: chest pain) Qty: 25 0RF Rx Instructions: do not exceed 3 doses per episode insulin glargine [Lantus Solostar U-100 Insulin] 100 unit/mL (3 mL) insulin pen 22 unit subcut QAM Rx Instructions: as directed cetirizine 10 mg tablet 10 mg PO QAM Trulicity 4.5 mg/0.5 mL pen injector 4.5 mg subcut .weekly Qty: 6 3RF triamcinolone acetonide 0.1 % cream 1 applic topical BID PRN (Reason: itching) Qty: 80 5RF (DME) lancets [OneTouch UltraSoft 2 Lancet] 30 gauge misc See Rx Instructions .Route Qty: 300 3RF Rx Instructions: tid as directed. nitrofurantoin monohyd/m-cryst [Macrobid] 100 mg capsule 100 mg PO Q12H 5 Days Qty: 10 0RF Rx Instructions: must administer with a meal/food lovastatin 40 mg tablet 40 mg PO HS Qty: 90 3RF Vitamin B-12 50 mcg Tablet 1,000 mcg PO QAM melatonin 10 mg Tablet 10 mg PO HS aspirin 81 mg Capsule 81 mg PO QAM magnesium oxide [MagOx] 400 mg (241.3 mg magnesium) tablet 400 mg PO BID metoprolol succinate 25 mg tablet extended release 24 hr 25 mg PO QAM Rx Instructions: for heart rate and blood pressure. fluticasone propionate 50 mcg/actuation spray,suspension 2 spray intranasal UD PRN (Reason: allergies) Rx Instructions: 2 Sprays each nostril twice a day for three days then reduce to two sprays each nostril at bedtime thereafter; vitamin B complex Capsule 1 cap PO QAM No Action hydrocodone-acetaminophen 7.5-325 mg tablet 1 tab PO Q6H PRN (Reason: pain) Qty: 120 0RF Discharge Orders: Discharge Order (Routine); Ordered 11/26/23 Ordered By: Hank Burton/Other Patient Handouts: DVT Post Op Prevention, Diabetes: Living Your Life Admission Data Admit Date/Time: 11/25/23 16:45 Attending Provider: Mesfin Rios Admit Provider: Mesfin Rios Primary Care Provider: Steve Pierre Other Interventions: Discharge Summary Assessment (RN) Last Done: 11/26/23 10:48
== END 2023-11-26 12:30 | disposition home or self-care (01) | DRG 483 ==
LOC: ASU 09:36 → PACUINP 09:36 → OBSVTOIN 16:45 → 3E 18:05

== ENCOUNTER 2024-07-20 18:15 | Inpatient (IN) ==
[2024-07-20] MEDS ORDERED: VANCOMYCIN CONSULT ACTIVE PRN (18:55)
--- NOTE | 2024-07-20 19:10 | Emergency Department Note ---
ED Visit Note I was consulted by the Advanced Practice Provider. The case was discussed at length. I personally made/approved the management plan and take responsibility for the patient management. I performed a substantive portion of the visit. This includes the aspects of: The patient appears to have cellulitis. She is not hypotensive or tachycardic however, she does have a slightly elevated lactic acid level. Hospitalization is indicated. .
[2024-07-20] MEDS: cefTRIAXone SODIUM 2,000 MG/50 ML BAG IV STA (19:16)
[2024-07-20 19:41] LABS: Basophils # (auto) 0.02 K/uL (0.00-0.20); Basophils % (auto) 0.3 %; Eosinophils # (auto) 0.16 K/uL (0.00-0.50); Eosinophils % (auto) 2.7 %; Hematocrit (blood only) 31.7 % (37.0-47.0); Immature Granulocytes # (auto) 0.02 K/uL (0.01-0.20); Immature Granulocytes % (auto) 0.3 %; Lymphocytes # (auto) 0.91 K/uL (1.20-3.40); Lymphocytes % (auto) 15.5 %; Mean Corpuscular Hemoglobin 31.3 pg (25.0-34.0); Mean Corpuscular Hgb Conc 34.7 g/dL (32.0-36.0); Mean Corpuscular Volume 90.1 fL (80.0-100.0); Monocytes # (auto) 0.41 K/uL (0.11-0.59); Neutrophils # (auto) 4.35 K/uL (1.40-6.50); Neutrophils % (auto) 74.2 %; Platelet Count 139 K/uL (130-400); RDW Standard Deviation 42.9 fL (36.4-46.3); Red Blood Count 3.52 M/uL (4.20-5.40); White Blood Count 5.87 K/ul (4.8-10.8)
[2024-07-20 19:55] LABS: Albumin Globulin Ratio 1.3 (0.9-2); Albumin Level 4.1 gm/dl (3.4-5.0); BUN Creatinine Ratio 20.9 (10-20); Bilirubin,Total 0.8 mg/dl (0.2-1.0); Calcium 9.3 mg/dl (8.6-10.3); Creatinine Clr Calc Pharmacy 77.6 ml/min; Globulin 3.2 gm/dl (2.5-4.0); Potassium 4.5 mmol/L (3.5-5.1); Total Protein 7.3 gm/dl (6.0-8.3)
--- NOTE | 2024-07-20 20:27 | Emergency Department Note ---
ED Provider Note History of Present Illness Chief Complaint: Bleeding Stated Complaint: ABD WAISTBAND, ENLARGED IN ABD, BLEEDING Time Seen by Provider: 07/20/24 18:47 Source: patient Mode of arrival: ambulatory Limitations: no limitations This patient is a 68-year-old female who presents to the emergency department for evaluation of an infection on her abdomen. Patient reports that over the past 4-5 days, she developed some pain and redness in the left side of her abdomen. Symptoms worsened 2 days ago and she saw her PCP yesterday. They diagnosed her with an infection, did a swab and put her on doxycycline. She states that today, there has been drainage from the center of the area. She reports bloody and purulent drainage. She denies fevers but reports some chills. She is diabetic. She states that the redness has seemed to worsen today. Denies any injury to the area. Home Medications Medication Instructions Recorded Confirmed Type cetirizine 10 mg tablet 10 mg PO QAM 12/26/18 07/19/24 History cyanocobalamin (vitamin B-12) 50 1,000 mcg PO QAM 03/01/21 07/19/24 History mcg tablet (Vitamin B-12) aspirin 81 mg capsule 81 mg PO QAM 03/26/21 07/19/24 History melatonin 10 mg tablet 10 mg PO HS 03/26/21 07/19/24 History OneTouch UltraSoft 2 Lancet 30 #100 ea 04/09/23 07/19/24 Rx gauge (lancets) dulaglutide 4.5 mg/0.5 mL 4.5 mg (0.5 mL) subcut .weekly #6 04/09/23 07/19/24 Rx subcutaneous pen injector mL (Trulicity) nitroglycerin 0.4 mg sublingual 0.4 mg sublingual Q5M PRN chest 04/27/23 07/19/24 Rx tablet pain #25 tabs omeprazole 40 mg capsule,delayed 40 mg PO QAM #90 caps 06/22/23 07/19/24 Rx release potassium chloride 10 mEq 20 meq (2 x 10 mEq) PO BID #360 07/02/23 07/19/24 Rx capsule,extended release caps valsartan 320 1 tab PO QAM #90 tabs 07/17/23 07/19/24 Rx mg-hydrochlorothiazide 25 mg tablet buspirone 15 mg tablet 7.5 mg (1/2 x 15 mg) PO BID #90 08/27/23 07/19/24 Rx tabs duloxetine 60 mg capsule,delayed 60 mg PO BID #180 caps 09/14/23 07/19/24 Rx release pen needle, diabetic 32 gauge x #100 ea 09/22/23 07/19/24 Rx 5/32" (BD Ultra-Fine Skylar Pen Needle) lovastatin 40 mg tablet 40 mg PO HS #90 tabs 10/22/23 07/19/24 Rx ascorbic acid (vitamin C) 250 mg 250 mg PO BID #180 tabs 11/16/23 07/19/24 Rx tablet fluticasone propionate 50 2 spray intranasal UD PRN allergies 11/17/23 07/19/24 History mcg/actuation nasal spray,suspension magnesium oxide 400 mg (241.3 mg 400 mg PO BID 11/17/23 07/19/24 History magnesium) tablet (MagOx) metoprolol succinate 25 mg 25 mg PO QAM 11/17/23 07/19/24 History tablet,extended release 24 hr vitamin B complex 1 cap PO QAM 11/17/23 07/19/24 History ferrous gluconate 324 mg (38 mg 324 mg PO BID #180 tabs 12/07/23 07/19/24 Rx iron) tablet glimepiride 4 mg tablet 4 mg PO BID #180 tabs 12/07/23 07/19/24 Rx mirtazapine 45 mg tablet 45 mg PO QPM #90 tabs 12/07/23 07/19/24 Rx metformin 1,000 mg tablet 1,000 mg PO BID #180 tabs 02/19/24 07/19/24 Rx OneTouch Ultra Test (blood sugar #100 ea 05/16/24 07/19/24 Rx diagnostic) lancets 30 gauge (OneTouch #300 ea 05/16/24 07/19/24 Rx UltraSoft 2 Lancet) insulin glargine 100 unit/mL (3 22 unit (0.22 mL) subcut QAM #15 mL 06/06/24 07/19/24 Rx mL) subcutaneous pen (Lantus Solostar U-100 Insulin) cholecalciferol (vitamin D3) 125 125 mcg PO QAM 06/28/24 07/19/24 History mcg (5,000 unit) tablet (Vitamin D3) docusate sodium 100 mg capsule 100 mg PO HS 06/28/24 07/19/24 History (Stool Softener) triamcinolone acetonide 0.1 % 1 applic topical BID PRN itching 07/18/24 07/19/24 Rx topical cream #80 grams doxycycline hyclate 100 mg capsule 100 mg PO BID 10 days #20 caps 07/19/24 07/19/24 Rx Allergies Allergy/AdvReac Type Severity Reaction Status Date / Time Sulfa (Sulfonamide Allergy Severe Anaphylaxis Verified 07/19/24 14:11 Antibiotics) meclizine Allergy Intermediate Headache Verified 07/19/24 14:11 acetaminophen [From Percocet] AdvReac Mild N/V Verified 07/19/24 14:11 oxycodone [From Percocet] AdvReac Mild Nausea Verified 07/19/24 14:11 Past Med/Surg History Problem List (Updated 07/21/24 @ 01:47 by Deanna Arce PA-C) Cellulitis of left abdominal wall (Acute) S/P sinus surgery Hypertrophy of both inferior nasal turbinates Chronic sinusitis, unspecified Controlled type 2 diabetes mellitus without complication Eustachian tube dysfunction Allergic rhinitis Vitamin B12 deficiency (dietary) anemia Chronic anemia Iron deficiency anemia Daytime sleepiness GERD (gastroesophageal reflux disease) Leukopenia (Acute) Sinus tachycardia Depression Chronic back pain Benign essential hypertension Lumbar radiculopathy (Chronic) Mixed hyperlipidemia Morbid obesity (Chronic) Medical History History of kidney stones no surgery required History of GI bleed (~2020) Difficult intravenous access Snoring Dizziness PCP monitoring-stable per pt Type 2 diabetes mellitus Lumbar radiculopathy Hx of chest pain patient reports negative cardiac [id number] due to anxiety, not heart issue Mixed hyperlipidemia Benign essential hypertension controlled, stable per pt0 Seasonal allergies Dyspnea on exertion states this has been since having COVID Pneumonia in 2020-denies change or worsening History of pernicious anemia iron daily Acid reflux controlled, stable per pt History of skin cancer Leg and face excision Anxiety and depression Morbid obesity Cervical radiculopathy Herniated cervical disc (unsure of exact level) Chronic pain Back-stable per pt-denies recent change or worsening Diabetic peripheral neuropathy feet Generalized osteoarthritis Surgical History History of endoscopic sinus surgery image guided right sided w/bilateral inferior turbinate reduction-07/05/24-Dr. Bradford History of esophagogastroduodenoscopy (EGD) History of tonsillectomy Expected difficult intubation cervical disc disease, limited cervical ROM, TMD < 3 and Mallampati 3. Hx of shoulder replacement (11/25/23) left Hx of basal cell carcinoma excision Leg, face Hx of esophagogastroduodenoscopy History of carpal tunnel release of both wrists History of ankle surgery right x 2 History of colonoscopy History of cholecystectomy History of delivery x 1 History of back surgery lumbar fusion Family History Sister Family history of diabetes mellitus Father Diabetes Family history of diabetes mellitus Heart disease Myocardial infarction Hypertension Mother Anxiety Dementia Depression Breast cancer Hypertension Asthma Other Family history of colon cancer in father No family history of adverse response to anesthesia Denies family history of Ovarian cancer Prostate cancer Alzheimer disease Bipolar disorder Kidney disease Lung cancer COPD (chronic obstructive pulmonary disease) Colorectal cancer Colonic polyp Stroke Social History Smoking Status: Never smoker Second Hand Exposure: Yes (as a child); Do You Dip or Chew Tobacco: No; Hx Alcohol Use: No Hx Substance Use: No Preferred Language: Mexican Communication Ability: Effective Visual Impairment: No Limitations Hearing Ability: Normal Safety Person Required: No Beliefs That Will Affect Care: None marital status: Current Living Situation: Spouse current occupational status: disabled Feels Safe at Home: Yes Childhood Exposure to Second-Hand Smoke: Yes caffeine: Yes during the past year weight has: remained stable Dental Care, Regularly: No Physical Activity Frequency: Does not Exercise Seatbelt Use: always Sunscreen Use: Yes Assistive Devices: Denture - Upper, Denture - Lower and Glasses Physical Exam Vital Signs Vital Signs - 24 hr 07/20/24 18:21 07/20/24 19:18 07/20/24 19:18 Temperature 36.4 C L Temperature Source Temporal Artery Scan Pulse Rate 96 H Pulse Rate [Finger] 85 Pulse Rhythm [Finger] Regular Pulse Strength [Finger] Normal Respiratory Rate 20 17 Respiratory Effort / Characteristics Non-Labored Non-Labored Respiratory Depth Normal Normal Respiratory Pattern Regular Blood Pressure 167/71 H Blood Pressure [Right Arm] 102/60 Blood Pressure Mean 103 Blood Pressure Mean [Right Arm] 74 Blood Pressure Position Sitting Blood Pressure Position [Right Arm] Lying Pulse Oximetry 95 94 94 Oxygen Delivery Method Room Air Room Air Room Air Sepsis Recent Fever Within 48 Hours No Sepsis New/Unexplained Change in Mental Status N/A Sepsis Action Taken by Nursing No Action Required 07/20/24 22:42 Temperature 36.9 C Temperature Source Oral Pulse Rate Pulse Rate [Finger] 84 Pulse Rhythm [Finger] Pulse Strength [Finger] Respiratory Rate 18 Respiratory Effort / Characteristics Non-Labored Spontaneous Respiratory Depth Respiratory Pattern Regular Blood Pressure Blood Pressure [Right Arm] 123/62 Blood Pressure Mean Blood Pressure Mean [Right Arm] 82 Blood Pressure Position Blood Pressure Position [Right Arm] Pulse Oximetry 95 Oxygen Delivery Method Room Air Sepsis Recent Fever Within 48 Hours Sepsis New/Unexplained Change in Mental Status Sepsis Action Taken by Nursing VITALS: Vitals are noted on the nurse's note and reviewed by myself. GENERAL: This is a 68-year-old female, in no acute distress, well-developed well-nourished. MOUTH: Mucous membranes moist. HEART: Regular rate and rhythm without murmurs gallops or rubs. LUNGS: Clear to auscultation bilaterally without wheezes, rales or rhonchi. ABDOMEN: Positive bowel sounds x 4. There is a large area of induration and erythema over the left lower abdomen in the skin fold. There is an open area near the bottom of this area which is draining purulent material. NEURO: Patient was alert and oriented to person place and time. Course Administered Medications Discontinued Medications Ceftriaxone Sodium (Rocephin) 2,000 mg in 50 mls @ 100 mls/hr IV NOW STA Stop: 07/20/24 19:24 Last Infusion: 07/20/24 19:43 Dose: Infused Documented By: Admin: 07/20/24 19:16 Dose: 100 mls/hr Documented By: ROX Vancomycin HCl 2,500 mg/ (Sodium Chloride) 550 mls @ 200 mls/hr IV NOW ONE Stop: 07/20/24 21:39 Last Infusion: 07/21/24 00:03 Dose: Infused Documented By: [facility] Admin: 07/20/24 20:42 Dose: 200 mls/hr Documented By: ROX Sodium Chloride (Nss) 1,000 mls @ 999 mls/hr IV .Q1H1M ONE Stop: 07/20/24 21:56 Last Infusion: 07/20/24 22:32 Dose: Infused Documented By: Admin: 07/20/24 21:07 Dose: 999 mls/hr Documented By: ROX Sodium Chloride (Nss) 1,000 mls @ 999 mls/hr IV .Q1H1M ONE Stop: 07/20/24 21:57 Last Infusion: 07/21/24 00:03 Dose: Infused Documented By: Admin: 07/20/24 22:40 Dose: 999 mls/hr Documented By: IVONNE Medical Decision Making Differential Diagnosis Cellulitis, abscess, MRSA infection, DVT, necrotizing fasciitis, dermatitis, drug eruption, allergic reaction, as well as other pathologies. Laboratory Data Attestation: I reviewed the patient's lab results. 07/20/24 19:11 07/20/24 19:11 Lab Results 07/20/24 07/20/24 07/20/24 Range/Units 18:55 19:11 21:09 WBC 5.87 (4.8-10.8) K/ul RBC 3.52 L (4.20-5.40) M/uL Hgb 11.0 L (12.0-16.0) g/dl Hct 31.7 L (37.0-47.0) % MCV 90.1 (80.0-100.0) fL MCH 31.3 (25.0-34.0) pg MCHC 34.7 (32.0-36.0) g/dL RDW Std Deviation 42.9 (36.4-46.3) fL RDW Coeff of Ashlee 13.0 (11.5-14.5) % Plt Count 139 (130-400) K/uL MPV 10.0 (9.4-12.4) fL Immature Gran % (Auto) 0.3 % Neut % (Auto) 74.2 % Lymph % (Auto) 15.5 % Parker % (Auto) 7.0 % Eos % (Auto) 2.7 % Baso % (Auto) 0.3 % Neut # (Auto) 4.35 (1.40-6.50) K/uL Lymph # (Auto) 0.91 L (1.20-3.40) K/uL Parker # (Auto) 0.41 (0.11-0.59) K/uL Eos # (Auto) 0.16 (0.00-0.50) K/uL Baso # (Auto) 0.02 (0.00-0.20) K/uL Immature Gran # (Auto) 0.02 (0.01-0.20) K/uL Sodium 139 (136-145) mmol/L Potassium 4.5 (3.5-5.1) mmol/L Chloride 105 (98-107) mmol/L Carbon Dioxide 24 (21-32) mmol/L Anion Gap 10 (3-11) BUN 19 (6-23) mg/dl Creatinine 0.91 (0.6-1.2) mg/dl Est Cr Clr Drug Dosing 77.6 ml/min eGFR 68.29 BUN/Creatinine Ratio 20.9 H (10-20) Glucose 198 H (70-99(Fasting)) mg/dl Lactate 2.8 H* 1.9 (0.4-2.0) mmol/L Calcium 9.3 (8.6-10.3) mg/dl Total Bilirubin 0.8 (0.2-1.0) mg/dl AST 25 (13-39) U/L ALT 18 (7-52) U/L Alkaline Phosphatase 93 (34-104) U/L Total Protein 7.3 (6.0-8.3) gm/dl Albumin 4.1 (3.4-5.0) gm/dl Globulin 3.2 (2.5-4.0) gm/dl Albumin/Globulin Ratio 1.3 (0.9-2) MDM Narrative This patient is a 68-year-old female who presents to the emergency department for evaluation of an infection in her left lower abdomen. Patient has a fairly significant abdominal wall cellulitis/abscess. This has opened up on its own and is draining. A culture was obtained. Labs with no leukocytosis. Initial lactate was elevated, patient given IV fluids and repeat lactate was improved. Given patient's past medical history of diabetes, worsening cellulitis and subjective fevers I do think that IV antibiotics and admission is warranted. I discussed with the [facility] who agreed to evaluate the patient for further care. She received ceftriaxone and vancomycin in the ED. Impression Cellulitis of left abdominal wall Discharge Plan Visit Data Chief Complaint: Bleeding Stated Complaint: ABD WAISTBAND, ENLARGED IN ABD, BLEEDING ED Provider: Steve So ED Midlevel Provider: Deanna Arce Discharge Problem: Cellulitis of left abdominal wall Patient Disposition: Admitted As Inpatient Discharge Instructions Interventions: ED Discharge Assessment Last Done: 07/21/24 00:53
[2024-07-20] MEDS: VANCOMYCIN HCL 2,500 MG in SODIUM CHLORIDE 0.9% 500 ML IV ONE (20:42)
[2024-07-20] MEDS ORDERED: SODIUM CHLORIDE 0.9% 500 ML IV ONE (20:56)
[2024-07-20] MEDS ORDERED: SODIUM CHLORIDE 0.9% 250 ML IV ONE (20:56)
[2024-07-20] MEDS: SODIUM CHLORIDE 0.9% 1,000 ML IV ONE ×2 (21:07→22:40)
--- NOTE | 2024-07-20 23:17 | History & Physical Report ---
Date of Service July 20, 2024 Assessment & Plan (1) Cellulitis of left abdominal wall: (2) Controlled type 2 diabetes mellitus without complication: (3) Vitamin B12 deficiency (dietary) anemia: (4) Chronic anemia: (5) GERD (gastroesophageal reflux disease): (6) Depression: (7) Chronic back pain: (8) Benign essential hypertension: (9) Mixed hyperlipidemia: Plan 68 year old female with PMHx that includes T2DM, pernicious anemia, GERD, depression, chronic back pain, HTN, HLD presenting with concern for worsening cellulitic infection on left abdominal wall: #Cellulitis, left abdominal wall: Afebrile, no leukocytosis Outpatient wound culture with preliminary pinpoint growth, final culture pending Wound and blood cultures obtained in ED Continue Vanc and Ceftriaxone pending culture results Wound care nurse consulted, appreciate recs If failing to improve, consider US vs CT for further eval +/- addition of anaerobic coverage AM labs: CBC, BMP #T2DM: Home oral antihyperglycemics held BSG checks ACHS Basal bolus insulin Chronic Conditions: HTN: continue valsartan-HCTZ, metoprolol HLD: Continue lovastatin Chronic pain: continue cymbalta GERD: continue PPI Depression: continue Cymbalta, Remeron Dispo: Admit med-surg FEN/GI: HH,CC diet VTE ppx: Lovenox Full Code History of Present Illness Chief Complaint: abdominal wall skin, soft tissue infection Primary Care Provider: Steve Pierre MD 68 year old female with PMHx that includes T2DM, pernicious anemia, GERD, depression, chronic back pain, HTN, HLD presenting with concern for worsening cellulitic infection on left abdominal wall. Initially manifested as small skin lesion that patient describes as being similar to folliculitis in appearance, first noticed over the weekend. Progressively grew over the week, erythematous, warm, painful to touch. Denies associated fever/chills. Patient seen by PCP yesterday, started on doxycycline. Patient presented to ED today after lesion started draining blood and pus. In total, has taken 3 doses of doxycycline. ED Course: Started on Vanc and Ceftriaxone. Blood and wound cultures drawn. Allergies Allergy/AdvReac Type Severity Reaction Status Date / Time Sulfa (Sulfonamide Allergy Severe Anaphylaxis Verified 07/19/24 14:11 Antibiotics) meclizine Allergy Intermediate Headache Verified 07/19/24 14:11 acetaminophen [From Percocet] AdvReac Mild N/V Verified 07/19/24 14:11 oxycodone [From Percocet] AdvReac Mild Nausea Verified 07/19/24 14:11 Home Medications Medication Instructions Recorded Confirmed Type cetirizine 10 mg tablet 10 mg PO QAM 12/26/18 07/21/24 History cyanocobalamin (vitamin B-12) 50 1,000 mcg PO QAM 03/01/21 07/21/24 History mcg tablet (Vitamin B-12) aspirin 81 mg capsule 81 mg PO QAM 03/26/21 07/21/24 History melatonin 10 mg tablet 10 mg PO HS 03/26/21 07/21/24 History OneTouch UltraSoft 2 Lancet 30 #100 ea 04/09/23 07/19/24 Rx gauge (lancets) dulaglutide 4.5 mg/0.5 mL 4.5 mg (0.5 mL) subcut .weekly #6 04/09/23 07/21/24 Rx subcutaneous pen injector mL (Trulicity) nitroglycerin 0.4 mg sublingual 0.4 mg sublingual Q5M PRN chest 04/27/23 07/21/24 Rx tablet pain #25 tabs omeprazole 40 mg capsule,delayed 40 mg PO QAM #90 caps 06/22/23 07/21/24 Rx release potassium chloride 10 mEq 20 meq (2 x 10 mEq) PO BID #360 07/02/23 07/21/24 Rx capsule,extended release caps valsartan 320 1 tab PO QAM #90 tabs 07/17/23 07/21/24 Rx mg-hydrochlorothiazide 25 mg tablet buspirone 15 mg tablet 7.5 mg (1/2 x 15 mg) PO BID #90 08/27/23 07/21/24 Rx tabs duloxetine 60 mg capsule,delayed 60 mg PO BID #180 caps 09/14/23 07/21/24 Rx release pen needle, diabetic 32 gauge x #100 ea 09/22/23 07/19/24 Rx 5/32" (BD Ultra-Fine Skylar Pen Needle) lovastatin 40 mg tablet 40 mg PO HS #90 tabs 10/22/23 07/21/24 Rx ascorbic acid (vitamin C) 250 mg 250 mg PO BID #180 tabs 11/16/23 07/21/24 Rx tablet fluticasone propionate 50 2 spray intranasal UD PRN allergies 11/17/23 07/21/24 History mcg/actuation nasal spray,suspension magnesium oxide 400 mg (241.3 mg 400 mg PO BID 11/17/23 07/21/24 History magnesium) tablet (MagOx) metoprolol succinate 25 mg 25 mg PO QAM 11/17/23 07/21/24 History tablet,extended release 24 hr vitamin B complex 1 cap PO QAM 11/17/23 07/21/24 History ferrous gluconate 324 mg (38 mg 324 mg PO BID #180 tabs 12/07/23 07/21/24 Rx iron) tablet glimepiride 4 mg tablet 4 mg PO BID #180 tabs 12/07/23 07/21/24 Rx mirtazapine 45 mg tablet 45 mg PO QPM #90 tabs 12/07/23 07/21/24 Rx metformin 1,000 mg tablet 1,000 mg PO BID #180 tabs 02/19/24 07/21/24 Rx OneTouch Ultra Test (blood sugar #100 ea 05/16/24 07/19/24 Rx diagnostic) lancets 30 gauge (OneTouch #300 ea 05/16/24 07/19/24 Rx UltraSoft 2 Lancet) insulin glargine 100 unit/mL (3 22 unit (0.22 mL) subcut QAM #15 mL 06/06/24 07/21/24 Rx mL) subcutaneous pen (Lantus Solostar U-100 Insulin) cholecalciferol (vitamin D3) 125 125 mcg PO QAM 06/28/24 07/21/24 History mcg (5,000 unit) tablet (Vitamin D3) docusate sodium 100 mg capsule 100 mg PO HS 06/28/24 07/21/24 History (Stool Softener) triamcinolone acetonide 0.1 % 1 applic topical BID PRN itching 07/18/24 07/21/24 Rx topical cream #80 grams doxycycline hyclate 100 mg capsule 100 mg PO BID 10 days #20 caps 07/19/24 07/21/24 Rx Past Med/Surg History Problem List Cellulitis of left abdominal wall (Acute) S/P sinus surgery Hypertrophy of both inferior nasal turbinates Chronic sinusitis, unspecified Controlled type 2 diabetes mellitus without complication Eustachian tube dysfunction Allergic rhinitis Vitamin B12 deficiency (dietary) anemia Chronic anemia Iron deficiency anemia Daytime sleepiness GERD (gastroesophageal reflux disease) Leukopenia (Acute) Sinus tachycardia Depression Chronic back pain Benign essential hypertension Lumbar radiculopathy (Chronic) Mixed hyperlipidemia Morbid obesity (Chronic) Medical History History of kidney stones no surgery required History of GI bleed (~2020) Difficult intravenous access Snoring Dizziness PCP monitoring-stable per pt Type 2 diabetes mellitus Lumbar radiculopathy Hx of chest pain patient reports negative cardiac [id number] due to anxiety, not heart issue Mixed hyperlipidemia Benign essential hypertension controlled, stable per pt0 Seasonal allergies Dyspnea on exertion states this has been since having COVID Pneumonia in 2020-denies change or worsening History of pernicious anemia iron daily Acid reflux controlled, stable per pt History of skin cancer Leg and face excision Anxiety and depression Morbid obesity Cervical radiculopathy Herniated cervical disc (unsure of exact level) Chronic pain Back-stable per pt-denies recent change or worsening Diabetic peripheral neuropathy feet Generalized osteoarthritis Surgical History History of endoscopic sinus surgery image guided right sided w/bilateral inferior turbinate reduction-07/05/24-Dr. Bradford History of esophagogastroduodenoscopy (EGD) History of tonsillectomy Expected difficult intubation cervical disc disease, limited cervical ROM, TMD < 3 and Mallampati 3. Hx of shoulder replacement (11/25/23) left Hx of basal cell carcinoma excision Leg, face Hx of esophagogastroduodenoscopy History of carpal tunnel release of both wrists History of ankle surgery right x 2 History of colonoscopy History of cholecystectomy History of delivery x 1 History of back surgery lumbar fusion Family History Sister Family history of diabetes mellitus Father Diabetes Family history of diabetes mellitus Heart disease Myocardial infarction Hypertension Mother Anxiety Dementia Depression Breast cancer Hypertension Asthma Other Family history of colon cancer in father No family history of adverse response to anesthesia Denies family history of Ovarian cancer Prostate cancer Alzheimer disease Bipolar disorder Kidney disease Lung cancer COPD (chronic obstructive pulmonary disease) Colorectal cancer Colonic polyp Stroke Social History Smoking Status: Never smoker Second Hand Exposure: No; Do You Dip or Chew Tobacco: No; Hx Alcohol Use: No Hx Substance Use: No Preferred Language: Stateless Communication Ability: Effective Visual Impairment: No Limitations Hearing Ability: Normal Layer Out Plate Glass Required: No Beliefs That Will Affect Care: None marital status: Current Living Situation: Spouse Current Living Situation Comment: Home with spouse current occupational status: disabled Other Information That Helps Us Care for You: No Feels Safe at Home: Yes Safety Concerns: Feels Safe At This Time Childhood Exposure to Second-Hand Smoke: Yes caffeine: Yes during the past year weight has: remained stable Dental Care, Regularly: No Physical Activity Frequency: Does not Exercise Seatbelt Use: always Sunscreen Use: Yes Assistive Devices: Denture - Upper and Denture - Lower Review of Systems Review of Systems: as per HPI Physical Exam Physical Exam: Constitutional: no acute distress HEENT: NCAT, no conjunctival injection CV: RRR, extremities well-perfused, no LE edema Resp: no increased work of breathing, lungs CTAB GI: nondistended MSK: no gross deformities Skin: Left abdominal wall erythematous, TTP, clean dressing in place. Central aspect of wound open with combination blood/pus draining. Neuro: alert, oriented, no focal neurologic deficit appreciated Results & Data Results & Data Vital Signs (Past 12 Hours) Vital Signs Temp Pulse Pulse Resp BP BP Pulse Ox 07/20/24 22:42 36.9 C 84 18 123/62 95 07/20/24 19:18 85 17 102/60 94 07/20/24 19:18 94 07/20/24 18:21 36.4 C L 96 H 20 167/71 H 95 O2 Del Method 07/20/24 22:42 Room Air 07/20/24 19:18 Room Air 07/20/24 19:18 Room Air 07/20/24 18:21 Room Air Laboratory Results Laboratory Results WBC 5.87 K/ul (4.8-10.8) 07/20/24 19:11 RBC 3.52 M/uL (4.20-5.40) L 07/20/24 19:11 Hgb 11.0 g/dl (12.0-16.0) L 07/20/24 19:11 Hct 31.7 % (37.0-47.0) L 07/20/24 19:11 MCV 90.1 fL (80.0-100.0) 07/20/24 19:11 MCH 31.3 pg (25.0-34.0) 07/20/24 19: MCHC 34.7 g/dL (32.0-36.0) 07/20/24: RDW Std Deviation 42.9 fL (36.4-46.3) 07/20/24: RDW Coeff of Ashlee 13.0 % (11.5-14.5) 07/20/24: Plt Count 139 K/uL (130-400) 07/20/24: MPV 10.0 fL (9.4-12.4) 07/20/24: Immature Gran % (Auto) 0.3 % 07/20/24: Neut % (Auto) 74.2 % 07/20/24:11 Lymph % (Auto) 15.5 % 07/20/24:11 Park % (Auto) 7.0 % 07/20/24:11 Eos % (Auto) 2.7 % 07/20/24: Baso % (Auto) 0.3 % 07/20/24:11 Neut # (Auto) 4.35 K/uL (1.40-6.50) 07/20/24: Lymph # (Auto) 0.91 K/uL (1.20-3.40) L 07/20/24:11 Park # (Auto) 0.41 K/uL (0.11-0.59) 07/20/24: Eos # (Auto) 0.16 K/uL (0.00-0.50) 07/20/24: Baso # (Auto) 0.02 K/uL (0.00-0.20) 07/20/24: Immature Gran # (Auto) 0.02 K/uL (0.01-0.20) 07/20/24 19: Sodium 139 mmol/L (136-145) 07/20/24 19: Potassium 4.5 mmol/L (3.5-5.1) 07/20/24 19:11 Chloride 105 mmol/L (98-107) 07/20/24 19:11 Carbon Dioxide 24 mmol/L (21-32) 07/20/24 19:11 Anion Gap 10 (3-11) 07/20/24 19:11 BUN 19 mg/dl (6-23) 07/20/24 19:11 Creatinine 0.91 mg/dl (0.6-1.2) 07/20/24 19:11 Est Cr Clr Drug Dosing 77.6 ml/min 07/20/24 19:11 eGFR 68.29 07/20/24 19:11 BUN/Creatinine Ratio 20.9 (10-20) H 07/20/24 19:11 Glucose 198 mg/dl (70-99(Fasting)) H 07/20/24 19:11 Lactate 1.9 mmol/L (0.4-2.0) 07/20/24 21:09 Calcium 9.3 mg/dl (8.6-10.3) 07/20/24 19:11 Total Bilirubin 0.8 mg/dl (0.2-1.0) 07/20/24 19:11 AST 25 U/L (13-39) 07/20/24 19:11 ALT 18 U/L (7-52) 07/20/24 19:11 Alkaline Phosphatase 93 U/L (34-104) 07/20/24 19:11 Total Protein 7.3 gm/dl (6.0-8.3) 07/20/24 19:11 Albumin 4.1 gm/dl (3.4-5.0) 07/20/24 19:11 Globulin 3.2 gm/dl (2.5-4.0) 07/20/24 19:11 Albumin/Globulin Ratio 1.3 (0.9-2) 07/20/24 19:11 Supervising Physician Co-Signing Physician Notes Patient seen and examined, chart reviewed, case discussed with Dr. Dubon and I agree with the assessment and plan as above. In brief, patient is a 68yo female with history of DM presenting with abdominal wall cellulitis, purulent drainage noted earlier today prior to arrival. Patient endorses some subjective fevers and chills as well as generalized weakness. Has received Doxycycline x 3 doses as prescribed by her PCP, however, cellulitis has worsened On exam she is afebrile, HD stable, non-toxic in appearance MMM, Neck supple +S1/S2, regular Lungs CTA Abd with left sided cellulities with open area, purulent drainage expressed Ext - no edema Labs and images reviewed. WBC is WNL Assessment/Plan Purulent abdominal wall cellulitis - concern for strep/staph, consider possible collection -Admit to medical -Follow cultures -Continue antibiotics, Vancomycin and Ceftriaxone -Monitor for improvement - if worsens would obtain CT abdomen to assess for possible collection or abscess -Wound Care appreciated -Remainder as above Resident Activity Tracking Resident Involvement: Resident Care Provided Care Provided: Adult Hospital Medicine
[2024-07-21] MEDS ORDERED: POLYETHYLENE (MIRALAX) 17 GM PACK PO PRN (00:53)
[2024-07-21] MEDS ORDERED: GLUCAGON FOR INJ 1 MG VIAL SQ PRN (00:53)
[2024-07-21] MEDS ORDERED: ALUMINUM/MAGNESIUM SUSP 30 ML UDC PO PRN (00:53)
[2024-07-21] MEDS ORDERED: GLUCOSE 10 TAB/TUBE PO PRN (00:53)
[2024-07-21] MEDS ORDERED: GLUCOSE 40% GEL 15 GM TUBE PO PRN (00:53)
[2024-07-21] MEDS ORDERED: MELATONIN 3 MG TAB PO PRN (00:53)
[2024-07-21] MEDS ORDERED: ONDANSETRON INJ 2 MG/ML 2 ML VIAL IV PRN (00:53)
[2024-07-21] MEDS ORDERED: CARBOHYDRATES FOR HYPOGLYCEMIA PO PRN (00:53)
[2024-07-21] MEDS ORDERED: DEXTROSE 50% 50 ML SYRINGE IV PRN (00:53)
[2024-07-21] MEDS: DULoxetine HCL 60 MG CAP PO SCH (02:54)
--- NOTE | 2024-07-21 04:14 | Billing Data ---
Date of Service July 20, 2024 Coding Level of Care Code 12370 INT INP/OBS CARE
[2024-07-21 04:47] LABS: BUN Creatinine Ratio 23.5 (10-20); Calcium 8.5 mg/dl (8.6-10.3); Creatinine Clr Calc Pharmacy 100.5 ml/min; Potassium 3.7 mmol/L (3.5-5.1)
[2024-07-21 05:07] LABS: Basophils # (auto) 0.03 K/uL (0.00-0.20); Basophils % (auto) 0.6 %; Eosinophils # (auto) 0.15 K/uL (0.00-0.50); Eosinophils % (auto) 3.2 %; Hematocrit (blood only) 27.6 % (37.0-47.0); Hemoglobin 9.6 g/dl (12.0-16.0); Immature Granulocytes # (auto) 0.02 K/uL (0.01-0.20); Immature Granulocytes % (auto) 0.4 %; Lymphocytes # (auto) 1.11 K/uL (1.20-3.40); Lymphocytes % (auto) 23.4 %; Mean Corpuscular Hemoglobin 31.3 pg (25.0-34.0); Mean Corpuscular Hgb Conc 34.8 g/dL (32.0-36.0); Mean Corpuscular Volume 89.9 fL (80.0-100.0); Mean Platelet Volume 9.9 fL (9.4-12.4); Monocytes # (auto) 0.36 K/uL (0.11-0.59); Monocytes % (auto) 7.6 %; Neutrophils # (auto) 3.08 K/uL (1.40-6.50); Neutrophils % (auto) 64.8 %; Platelet Count 124 K/uL (130-400); RDW Standard Deviation 43.1 fL (36.4-46.3); Red Blood Count 3.07 M/uL (4.20-5.40); White Blood Count 4.75 K/ul (4.8-10.8)
--- NOTE | 2024-07-21 07:57 | Pharmacy Report ---
Pharmacy PK ABX Note - Date of Service July 21, 2024 - Assessment and Plan Assessment 68 year old F receiving vancomycin and ceftriaxone for treatment of abdominal wall cellulitis. Pertinent microbiologic data includes: blood cultures and abdominal culture pending. Per notes, outpatient culture preliminarily with pinpoint growth. Cellulitis progressively worsened throughout the week and patient was prescribe doxycycline of which she took 3 days prior to arrival. Day # 2 of antimicrobial therapy. Plan Vancomycin * Loading dose: 2500 mg IV x 1 * Maintenance dose: 1500 mg IV every 24 hours * Regimen is predicted to achieve target AUC/SAM of 400-600 mg/L.hr * Random level ordered for: 07/22/23 with AM labs Pharmacy will continue to follow and will adjust dose/frequency as necessary. Thank you. Pharmacy has transitioned to AUC monitoring for vancomycin. AUC/SAM is the preferred PK/PD target and is associated with decreased risk of nephrotoxicity compared to traditional trough targets.
[2024-07-21] MEDS: INSULIN ASPART PER UNIT CHARGE SC SCH (09:16)
[2024-07-21] MEDS: LANTUS PER UNIT CHARGE SQ SCH (09:17)
[2024-07-21] MEDS: CHOLECALCIFEROL 125 MCG (5,000 UNITS) TAB PO SCH (09:18)
[2024-07-21] MEDS: VALSARTAN 80 MG TAB PO SCH (09:18)
[2024-07-21] MEDS: MAGNESIUM OXIDE 400 MG TAB PO SCH (09:18)
[2024-07-21] MEDS: hydroCHLOROthiazide 25 MG TAB PO SCH (09:18)
[2024-07-21] MEDS: ASPIRIN 81 MG ECTAB PO SCH (09:18)
[2024-07-21] MEDS: POTASSIUM CHLORIDE CRTAB 20 MEQ TABCR PO SCH (09:19)
[2024-07-21] MEDS: VITAMIN B COMPLEX TAB PO SCH (09:19)
[2024-07-21] MEDS: PANTOprazole 40 MG TAB PO SCH (09:19)
[2024-07-21] MEDS: METOPROLOL SUCC 25MG EXT REL TAB PO SCH (09:19)
[2024-07-21] MEDS: ASCORBIC ACID 500 MG TAB PO SCH (09:19)
[2024-07-21] MEDS: CYANOCOBALAMIN (B-12) 500 MCG TABLET PO SCH (09:19)
[2024-07-21] MEDS: CETIRIZINE HCL 10 MG TABLET PO SCH (09:19)
[2024-07-21] MEDS: ACETAMINOPHEN 325 MG TAB PO PRN (09:29)
[2024-07-21] MEDS: VANCOMYCIN HCL 1,500 MG in SODIUM CHLORIDE 0.9% 500 ML IV SCH (10:17)
--- NOTE | 2024-07-21 15:37 | Ultrasound Report ---
US abdomen limited HISTORY: possible abscess. left lower abdominal wall. COMPARISON: None FINDINGS: Ultrasound of the left lower quadrant abdominal wall demonstrates thickened, edematous, sub cutaneous tissue extending over an area of approximately 4.8 x 1.6 cm. There is hyperemia within this tissue. It does not show defined borders consistent with a mature abscess. This is more likely a phl egmon or focal cellulitis. IMPRESSION: No evidence of defined, drainable abscess. The present appearance is more consistent wit h focal cellulitis or phlegmon. ACT 112: Negative or not required by law. Electronically signed by: Radha Urrutia M.D. 07/21/2024 3:36 PM
--- NOTE | 2024-07-21 18:14 | Hospitalist Progress Note ---
Date of Service July 21, 2024 Assessment & Plan (1) Cellulitis of left abdominal wall: (2) Controlled type 2 diabetes mellitus without complication: (3) Vitamin B12 deficiency (dietary) anemia: (4) Chronic anemia: (5) GERD (gastroesophageal reflux disease): (6) Depression: (7) Chronic back pain: (8) Benign essential hypertension: (9) Mixed hyperlipidemia: Plan 68-year-old woman with type 2 diabetes and morbid obesity who is admitted with severe left lower abdominal wall cellulitis #Cellulitis, left abdominal wall: the appearance of the cellulitis is not clearly improved thus far, but I do not think it has worsened severe cellulitis in a diabetic warrants ongoing hospitalization for intravenous antibiotics until it is clearly improving because of the high risk of complications ordered abdominal wall ultrasound which I reviewed shows cellulitis or phlegmon in the area but no discrete fluid collection to suggest a mature abscess wound nurse has consulted wound culture from office visit earlier in the week is growing Staph aureus continue ceftriaxone and vancomycin pending sensitivities she does have pancytopenia, she has a chronic moderate anemia and chronic mild leukopenia, mild thrombocytopenia is new today and may be related to infection #T2DM: Home oral antihyperglycemics held BSG checks ACHS Basal bolus insulin Chronic Conditions: HTN: continue valsartan-HCTZ, metoprolol HLD: Continue lovastatin Chronic pain: continue cymbalta GERD: continue PPI Depression: continue Cymbalta, Remeron morbid obesity with BMI of 48 VTE ppx: Lovenox Admission and Anticipated Discharge Date Admission Date: July 20, 2024 Subjective Sheryl reports that her abdominal wall remains very painful/tender red and continues to weep bloody fluid this was not an injection site from her Trulicity, which she uses a different area. It did start as a folliculitis Physical Exam 2 Physical Exam: PHYSICAL EXAMINATION Last 24h vital signs reviewed, see documentation in flowsheet General: comfortable appearing, no distress HEENT: Normocephalic, atraumatic, pupils round and equal, sclerae anicteric, no conjunctival injection, moist mucus membranes Lungs: normal work of breathing Heart: deferred Abdomen: nondistended, there is an area of severe cellulitis left lower abdominal wall with erythema, warmth, induration, there is a wound that is deep in a fold of the pannus that is weeping serosanguineous fluid, I was unable to express any pus, erythema extends medially from the marker lines however the marker lines were from her original clinic appointment and were not from yesterday in the ED she is not certain whether this area was present yesterday Extremities: Warm, dry, well-perfused. No extremity edema. Neuro: Alert and oriented x 4, face symmetric, moves 4 extremities well Psych: Normal affect and behavior Results & Data Results & Data Vital Signs (Past 12 Hours) Vital Signs Temp Pulse Resp BP BP Pulse Ox O2 Del Method 07/21/24 17:00 Room Air 07/21/24 17:00 98.2 F 89 20 157/77 H 97 Room Air 07/21/24 15:39 84 18 149/69 H 97 Room Air 07/21/24 14:25 105/67 07/21/24 11:12 87 14 116/65 97 Room Air 07/21/24 09:49 128/67 07/21/24 07:09 15 Laboratory Results 07/21/24 04:10 07/21/24 04:10 PG Care Time/CCT Total # of Minutes Spent Total Time Spent with Patient: Total time spent is greater than 50% in coordination of care (as documented) at patient's floor/unit and/or counseling patient: Coding Level of Care Code 75441 SUB INP/OBS CARE 235MIN Diagnoses Cellulitis of left abdominal wall L03.311 Controlled type 2 diabetes mellitus without complication E11.9 Vitamin B12 deficiency (dietary) anemia D51.8 Chronic anemia D64.9 GERD (gastroesophageal reflux disease) K21.9 Depression F32.9 Chronic back pain M54.9; G89.29 Benign essential hypertension I10 Mixed hyperlipidemia E78.2
[2024-07-21] MEDS: LOVASTATIN 20 MG TAB PO SCH (20:56)
[2024-07-21] MEDS: MIRTAZAPINE SOLTAB 15 MG PO SCH (20:57)
[2024-07-21] MEDS: DOCUSATE SODIUM 100 MG CAP PO SCH (20:57)
[2024-07-21] MEDS: cefTRIAXone SODIUM 2,000 MG/50 ML BAG IV SCH (21:11)
[2024-07-22 06:52] LABS: Creatinine Clr Calc Pharmacy 85.1 ml/min
--- NOTE | 2024-07-22 10:00 | Pharmacy Report ---
Pharmacy PK ABX Note - Date of Service July 22, 2024 - Assessment and Plan Assessment 07/22: Vanco level obtained today is 6.9mcg/mL which extrapolates to an AUC that is subtherapeutic (< 400). Per report, the appearance of the cellulitis is not improved and the patient states that her abdominal wall remains very painful/tender and continues to weep bloody fluid. The vancomycin has therefor been increased to 1250mg iv q 12 hours. Vanco levels will be monitored frequently as there is a potential for drug accumulation in patients with a BMI > 35. * The left lower abdominal culture obtained 07/20 grew MRSA; Blood cultures x 2 from 07/20 are still pending but are NGTD. * Ceftriaxone has been d/c * Renal function remains stable and patient is afebrile. 07/21: 68 year old F receiving vancomycin and ceftriaxone for treatment of abdominal wall cellulitis. Pertinent microbiologic data includes: blood cultures and abdominal culture pending. Per notes, outpatient culture preliminarily with pinpoint growth. Cellulitis progressively worsened throughout the week and patient was prescribe doxycycline of which she took 3 days prior to arrival. Day # 2 of antimicrobial therapy. Plan Vancomycin * Vanco level was 6.9mcg/mL this morning which extrapolates to an AUC < 400. * Increase maintenance dose to : 1250 mg IV every 12 hours * Regimen is predicted to achieve target AUC/SAM of 400-600 mg/L.hr * Random level ordered for: 07/24/23 with AM labs Pharmacy will continue to follow and will adjust dose/frequency as necessary. Thank you. Pharmacy has transitioned to AUC monitoring for vancomycin. AUC/SAM is the preferred PK/PD target and is associated with decreased risk of nephrotoxicity compared to traditional trough targets.
[2024-07-22] MEDS: VANCOMYCIN HCL 1,250 MG in SODIUM CHLORIDE 0.9% 250 ML IV SCH (11:03)
--- NOTE | 2024-07-22 18:47 | Hospitalist Progress Note ---
Date of Service July 22, 2024 Assessment & Plan (1) Cellulitis of left abdominal wall: (2) Controlled type 2 diabetes mellitus without complication: (3) Vitamin B12 deficiency (dietary) anemia: (4) Chronic anemia: (5) GERD (gastroesophageal reflux disease): (6) Depression: (7) Chronic back pain: (8) Benign essential hypertension: (9) Mixed hyperlipidemia: Plan 68-year-old woman with type 2 diabetes and morbid obesity who is admitted with severe left lower abdominal wall cellulitis #Cellulitis, left abdominal wall - culture grew MRSA sensitive to Bactrim and doxycycline abdominal wall ultrasound 07/21 with no discrete abscess collection however there is a central area of severe cellulitis versus phlegmon severe cellulitis in a diabetic warrants ongoing hospitalization for intravenous antibiotics until it is clearly improving because of the high risk of complications - it has improved overnight but continues to warrant hospitalization for ongoing IV vancomycin wound nurse has consulted continue vancomycin and stopped ceftriaxone. creatinine remains normal at 0.8 on vancomycin she has a sulfa allergy and likely will discharge on doxycycline she does have pancytopenia, she has a chronic moderate anemia and chronic mild leukopenia, mild thrombocytopenia is new and may be related to infection - a.m. CBC #T2DM: Home oral antihyperglycemics held BSG checks ACHS Basal bolus insulin - reviewed blood glucoses they are at goal Chronic Conditions: HTN: continue valsartan-HCTZ, metoprolol HLD: Continue lovastatin Chronic pain: continue cymbalta GERD: continue PPI Depression: continue Cymbalta, Remeron morbid obesity with BMI of 48 VTE ppx: Lovenox Admission and Anticipated Discharge Date Admission Date: July 20, 2024 Subjective surgery reports her left lower abdominal wall pain has significantly improved overnight though the area still remains quite tender with palpation, and has continued to drain some bloody drainage wound care nurse was able to irrigate and express some pus and bloody clots yesterday Physical Exam 2 Physical Exam: PHYSICAL EXAMINATION Last 24h vital signs reviewed, see documentation in flowsheet General: comfortable appearing, no distress HEENT: Normocephalic, atraumatic, pupils round and equal, sclerae anicteric, no conjunctival injection, moist mucus membranes Lungs: normal work of breathing Heart: deferred Abdomen: nondistended, there is an area of severe cellulitis left lower abdominal wall with erythema, warmth, induration, there is a wound that is deep in a fold of the pannus that is weeping some bloody fluid, the area of erythema has receded compared to the markings, tenderness has improved, continues to be quite indurated in the central area Extremities: Warm, dry, well-perfused. No extremity edema. Neuro: Alert and oriented x 4, face symmetric, moves 4 extremities well Psych: Normal affect and behavior Results & Data Results & Data Vital Signs (Past 12 Hours) Vital Signs Temp Pulse Resp BP Pulse Ox O2 Del Method 07/22/24 08:24 98.2 F 72 18 151/74 H 94 Room Air Laboratory Results 07/21/24 04:10 07/22/24 05:37 vancomycin trough was 6.7 PG Care Time/CCT Total # of Minutes Spent Total Time Spent with Patient: Total time spent is greater than 50% in coordination of care (as documented) at patient's floor/unit and/or counseling patient: Coding Level of Care Code 72141 SUB INP/OBS CARE 2/35MIN Diagnoses Cellulitis of left abdominal wall L03.311 Controlled type 2 diabetes mellitus without complication E11.9 Vitamin B12 deficiency (dietary) anemia D51.8 Chronic anemia D64.9 GERD (gastroesophageal reflux disease) K21.9 Depression F32.9 Chronic back pain M54.9; G89.29 Benign essential hypertension I10 Mixed hyperlipidemia E78.2
[2024-07-23 06:57] LABS: Hematocrit (blood only) 32.6 % (37.0-47.0); Hemoglobin 11.3 g/dl (12.0-16.0); Mean Corpuscular Hemoglobin 31.2 pg (25.0-34.0); Mean Corpuscular Hgb Conc 34.7 g/dL (32.0-36.0); Mean Corpuscular Volume 90.1 fL (80.0-100.0); Mean Platelet Volume 9.3 fL (9.4-12.4); Platelet Count 142 K/uL (130-400); RDW Coefficient of Variation 12.9 % (11.5-14.5); RDW Standard Deviation 42.5 fL (36.4-46.3); Red Blood Count 3.62 M/uL (4.20-5.40); White Blood Count 4.57 K/ul (4.8-10.8)
[2024-07-23 07:15] LABS: Calcium 9.9 mg/dl (8.6-10.3); Creatinine Clr Calc Pharmacy 85.1 ml/min; Potassium 4.1 mmol/L (3.5-5.1)
[2024-07-23 07:25] VITALS: BP 135/76; PULSE 85; RESP 18; TEMP 98.4; O2SAT 93
[2024-07-23] MEDS: busPIRone 7.5 MG TAB PO PRN (09:15)
--- NOTE | 2024-07-23 20:11 | Discharge Summary ---
Discharge Summary Date of Service July 23, 2024 Principal Dx & Hospital Course #1 = Principal Diagnosis (1) Cellulitis of left abdominal wall: (2) Controlled type 2 diabetes mellitus without complication: (3) Vitamin B12 deficiency (dietary) anemia: (4) Chronic anemia: (5) GERD (gastroesophageal reflux disease): (6) Depression: (7) Chronic back pain: (8) Benign essential hypertension: (9) Mixed hyperlipidemia: Plan 68-year-old woman with type 2 diabetes and morbid obesity who is admitted with severe left lower abdominal wall cellulitis #MRSA Cellulitis and abscess of left abdominal wall abscess draining spontaneously by the time of admission abdominal wall ultrasound 07/21 with no discrete abscess collection however there is a central area of severe cellulitis versus phlegmon treated with IV vancomycin wound nurse consulted - continue wound care, provided supplies on discharge significantly improved with improvement in pain and erythema, induration resolved - discharged on oral doxycycline based on sensis, she has a sulfa allergy and it was resistant to clinda she did have pancytopenia, she has a chronic moderate anemia and chronic mild leukopenia, mild thrombocytopenia related to infection this admission resolved with Plt 142 today #T2DM: stable resume usual meds Chronic Conditions: HTN: continue valsartan-HCTZ, metoprolol HLD: Continue lovastatin Chronic pain: continue cymbalta GERD: continue PPI Depression: continue Cymbalta, Remeron morbid obesity with BMI of 48 Notes For Next Care Provider blood cultures still pending - NGTD >48h Admission HPI Per Admitting Provider 68 year old female with PMHx that includes T2DM, pernicious anemia, GERD, d epression, chronic back pain, HTN, HLD presenting with concern for worsening cellulitic infection on left abdominal wall. Initially manifested as small skin lesion that patient describes as being similar to folliculitis in appearance, first noticed over the weekend. Progressively grew over the week, erythematous, warm, painful to touch. Denies associated fever/chills. Patient seen by PCP yesterday, started on doxycycline. Patient presented to ED today after lesion started draining blood and pus. In total, has taken 3 doses of doxycycline. ED Course: Started on Vanc and Ceftriaxone. Blood and wound cultures drawn. Discharge Exam PHYSICAL EXAMINATION Last 24h vital signs reviewed, see documentation in flowsheet General: comfortable appearing, no distress HEENT: Normocephalic, atraumatic, pupils round and equal, sclerae anicteric, no conjunctival injection, moist mucus membranes Lungs: normal work of breathing Heart: deferred Abdomen: L lower abd wall cellulitis and 2 cm superficial wound LLQ between folds of pannus, erythema receding and induration resolved, no expressible drainage Extremities: Warm, dry, well-perfused. No extremity edema. Neuro: Alert and oriented x 4, face symmetric, moves 4 extremities well Psych: Normal affect and behavior Discharge Plan Discharge Items Patient Disposition: Home - Self-Care Reason For Visit: ABDOMINAL CELLULITIS Discharge Diagnosis: Abdominal wall cellulitis and abscess due to MRSA Activity: Resume your previous activity Non-emergency contact: Primary Care Provider Call non-emergency contact if: you have any medication questions, your symptoms worsen and you have a fever Follow-up/Referrals: Steve Pierre MD [Primary Care Provider] - Diet: Carb Consistent or DM2 Addtl Attending Provider Instructions: You were treated for abscess and cellulitis of your abdominal wall. The abscess spontaneously drained. Wound culture grew MRSA staph and you were treated with antibiotic called IV vancomycin. This bacteria is sensitive to the doxycycline so you can continue taking that at home. I sent an Rx for a few more days worth in case you run out, but you probably need to take the antibiotic for 10 days. Please schedule follow up in primary care within 1-2 weeks, ideally late this week for wound check. clean lower abdomen with mild soap and water and pat dry you can use the alginate (kaltostat) rope to pack the wound and change daily or as needed. Once there is no more drainage, you don't need to use the alginate, but you can keep it clean and covered with dry gauze. I will ask the nurses to give you some dressing supplies. You may be able to get alginate in the drug store, but I know you can get it from [employer] or [employer] online if you need more. Pending Studies at Discharge: Yes (blood cultures no growth to date, finalize at 5 days) Stand-Alone Forms: My [facility] Cute Attack, Smoking Cessation Medications and DC Order Prescriptions: Continued (DME) lancets [OneTouch UltraSoft 2 Lancet] 30 gauge misc See Rx Instructions .Route Qty: 100 3RF Rx Instructions: As directed to test blood sugar two times a day; E11.9 omeprazole 40 mg capsule,delayed release(DR/EC) 40 mg PO QAM Qty: 90 3RF potassium chloride 10 mEq capsule, extended release 20 meq PO BID Qty: 360 3RF valsartan-hydrochlorothiazide 320-25 mg tablet 1 tab PO QAM Qty: 90 3RF buspirone 15 mg tablet 7.5 mg PO BID Qty: 90 3RF Rx Instructions: for anxiousness duloxetine 60 mg capsule,delayed release(DR/EC) 60 mg PO BID Qty: 180 3RF Rx Instructions: For pain and mood ascorbic acid (vitamin C) 250 mg tablet 250 mg PO BID Qty: 180 3RF mirtazapine 45 mg tablet 45 mg PO QPM Qty: 90 3RF glimepiride 4 mg tablet 4 mg PO BID Qty: 180 3RF Rx Instructions: take prior to breakfast and supper. ferrous gluconate 324 mg (38 mg iron) tablet 324 mg PO BID Qty: 180 3RF metformin 1,000 mg tablet 1,000 mg PO BID Qty: 180 3RF (DME) lancets [OneTouch UltraSoft 2 Lancet] 30 gauge misc See Rx Instructions .Route Qty: 300 3RF Rx Instructions: tid as directed. (DME) OneTouch Ultra Test Strip See Rx Instructions .Route Qty: 100 3RF Rx Instructions: As directed to test sugar two times a day; dx E11.9 insulin glargine [Lantus Solostar U-100 Insulin] 100 unit/mL (3 mL) insulin pen 22 unit subcut QAM Qty: 15 11RF Rx Instructions: as directed triamcinolone acetonide 0.1 % cream 1 applic topical BID PRN (Reason: itching) Qty: 80 5RF nitroglycerin 0.4 mg tablet, sublingual 0.4 mg sublingual Q5M PRN (Reason: chest pain) Qty: 25 0RF Rx Instructions: do not exceed 3 doses per episode cetirizine 10 mg tablet 10 mg PO QAM Trulicity 4.5 mg/0.5 mL pen injector 4.5 mg subcut .weekly Qty: 6 3RF lovastatin 40 mg tablet 40 mg PO HS Qty: 90 3RF Vitamin B-12 50 mcg Tablet 1,000 mcg PO QAM melatonin 10 mg Tablet 10 mg PO HS aspirin 81 mg Capsule 81 mg PO QAM Hold Instructions: Resume on 07/12/24. magnesium oxide [MagOx] 400 mg (241.3 mg magnesium) tablet 400 mg PO BID metoprolol succinate 25 mg tablet extended release 24 hr 25 mg PO QAM Rx Instructions: for heart rate and blood pressure. fluticasone propionate 50 mcg/actuation spray,suspension 2 spray intranasal UD PRN (Reason: allergies) Hold Instructions: Resume on 07/19/24. Rx Instructions: 2 Sprays each nostril twice a day for three days then reduce to two sprays each nostril at bedtime thereafter; vitamin B complex Capsule 1 cap PO QAM docusate sodium [Stool Softener] 100 mg Capsule 100 mg PO HS cholecalciferol (vitamin D3) [Vitamin D3] 125 mcg (5,000 unit) Tablet 125 mcg PO QAM doxycycline hyclate 100 mg capsule 100 mg PO BID 4 Days Qty: 8 0RF No Action (DME) pen needle, diabetic [BD Ultra-Fine Skylar Pen Needle] 32 gauge x 5/32" needle See Rx Instructions .Route Qty: 100 2RF Rx Instructions: As directed to inject insulin once a day but twice on thursday Discharge Orders: Discharge Order (Routine); Ordered 07/23/24 Ordered By: Josefa Burton/Other Patient Handouts: Managing Type 2 Diabetes Admission Data Admit Date/Time: 07/20/24 23:16 Attending Provider: Josefa Gaitan Admit Provider: Neeraj Dubon Primary Care Provider: Steve Pierre Other Providers: Laura Cordero Other Interventions: Discharge Summary Assessment (RN) Last Done: 07/23/24 11:00 Hospital Stay Data Consultations 07/20/24 22:43 ED Decision to Admit Stat Diagnostic Imagining Performed 07/21/24 12:38 US abdomen limited Urgent Pending Results Patient Have Any Pending Studies at Discharge: Yes (blood cultures no growth to date, finalize at 5 days) Discharge Instructions Given to Patient (Per Discharging Provider) You were treated for abscess and cellulitis of your abdominal wall. The abscess spontaneously drained. Wound culture grew MRSA staph and you were treated with antibiotic called IV vancomycin. This bacteria is sensitive to the doxycycline so you can continue taking that at home. I sent an Rx for a few more days worth in case you run out, but you probably need to take the antibiotic for 10 days. Please schedule follow up in primary care within 1-2 weeks, ideally late this week for wound check. clean lower abdomen with mild soap and water and pat dry you can use the alginate (kaltostat) rope to pack the wound and change daily or as needed. Once there is no more drainage, you don't need to use the alginate, but you can keep it clean and covered with dry gauze. I will ask the nurses to give you some dressing supplies. You may be able to get alginate in the drug store, but I know you can get it from [employer] or [employer] online if you need more. Total Time Total Time Spent Total Time Spent (In Minutes): I personally spent: 40 minutes today on clinical care activities including: reviewing chart notes and vital signs reviewing labs, micro discussion with bedside nurse, wound care instructions and supplies examining and counseling the patient writing orders writing prescriptions, discharge instructions documentation Coding Level of Care Code 64218 INP/OBS DISCH >30 MIN Diagnoses Cellulitis of left abdominal wall L03.311 Controlled type 2 diabetes mellitus without complication E11.9 Vitamin B12 deficiency (dietary) anemia D51.8 Chronic anemia D64.9 GERD (gastroesophageal reflux disease) K21.9 Depression F32.9 Chronic back pain M54.9; G89.29 Benign essential hypertension I10 Mixed hyperlipidemia E78.2
== END 2024-07-23 11:54 | disposition home or self-care (01) | DRG 603 ==
LOC: ED 18:15 → EDINP 23:16 → SUATTDRO 23:16 → EDINP 07-21 16:24 → 3N 07-21 17:15

== ENCOUNTER 2024-11-21 11:24 | Observation (INO) ==
--- NOTE | 2024-11-21 11:49 | Emergency Department Note ---
Impression & Plan Shortness of breath, Weakness, Anemia, Leukopenia ED Provider Note NAME: SAAD MCKEON AGE: 68 SEX: F : 1955 ARRIVES VIA: Walk-In INFORMANT: Patient ED PROVIDER(S): Louis Jane DO CHIEF COMPLAINT: Cough, congestion shortness of breath HPI: Patient is a 68-year-old female with a past medical history of cirrhosis, bacteremia, pyelonephritis and depression who presents to the ER for UTI and shortness of breath. Symptoms started with upper respiratory symptoms with cough, congestion, shortness of breath which started about a week ago. She notes it has been getting worse. She used to be able to walk without any assist and now just getting out of bed she becomes severely short of breath and she feels her heart racing. She has a wet cough and sometimes bring stuff up. Denies any belly pain, nausea, or vomiting. She does admit to urinary symptoms which included dysuria and urgency which was on Thursday. She was seen by her PCP and started on Levaquin for a UTI. ADDITIONAL HISTORY OBTAINED: Family present at bedside and denies any sick contacts. Chronic Medical/Social Conditions Affecting Care: Per HPI PAST MEDICAL HISTORY:See Below PAST SURGICAL HISTORY:See Below FAMILY HISTORY:See Below SOCIAL HISTORY:See Below HOME MEDICATIONS:See Below ALLERGIES:See Below VITALS:See Below PHYSICAL EXAMINATION: GENERAL: Sitting up in bed, alert, slightly ill-appearing, dyspneic EYE EXAM: normal conjunctiva. PERRL and EOM's grossly intact. OROPHARYNX: no exudate, no erythema, lips, buccal mucosa, and tongue normal and mucous membranes are moist NECK: supple, no nuchal rigidity, no adenopathy, non-tender LUNGS: Wheezing bilaterally. Normal chest wall mechanics HEART: no murmurs, S1 normal and S2 normal ABDOMEN: abdomen soft, non-tender, normo-active bowel sounds, no masses, no rebound or guarding. UPPER EXTREMITIES: upper extremities are grossly normal. LOWER EXTREMITIES: No pitting edema. Calves are equal bilaterally NEURO EXAM: Normal sensorium, cranial nerves II-XII grossly intact, normal speech, no gross weakness of arms, no gross weakness of legs. MEDICAL DECISION MAKING: Patient is a 68-year-old female who presents ER for the above-stated complaint. IV was established and blood work was obtained. Labs show mild leukopenia 4000 and mild anemia at 9. BMP was reassuring with exception of slightly elevated glucose at 192. LFTs bilirubin were unremarkable. Troponin was negative. Lipase normal. COVID flu and RSV were negative. Chest x-ray was clean. UA was reviewed and did show pansensitive Klebsiella. Patient is on Levaquin. Symptoms are worsening. Did have diffuse wheezing. Was given an hour-long neb treatment. This did improve. With ambulation she was still significantly short of breath. Discussed case with the hospitalist for further evaluation management treatment. Consults/Care Managements Discussions: Per [facility] Triage Nursing notes reviewed. Limited review of prior medical records performed Vital Signs: reviewed and remarkable for hypertensive, tachycardic and tachypneic Differential diagnosis: Differential diagnoses includes but is not limited to pneumonia, bronchitis, COPD/Asthma exacerbation, pneumothorax, pulmonary embolism, congestive heart failure, acute coronary syndrome ER treatment provided: See below Diagnostics interpreted by me include EKG and cardiac monitoring as listed below: -Cardiac Monitoring: An order was placed for continuous cardiac monitoring. The monitor shows a rate of 110 with sinus rhythm. -ECG: Sinus tachycardia rate of 112 Normal axis No PVCs QTc 423 -Laboratory studies:Interpreted by me as stated above in MDM and shown below. Imaging studies: Xrays: As interpreted by me: Portable AP upright 1 view of the chest shows no focal infiltrate. CTs show: none Procedures:none Critical Care: None Past Med/Surg History Problem List (Updated 11/21/24 @ 17:51 by Louis Jane DO) Leukopenia (Acute) Anemia (Acute) Weakness (Acute) Shortness of breath (Acute) UTI (urinary tract infection) Upper respiratory infection Cirrhosis Portal hypertension Hyperkalemia Bacteremia of undetermined etiology MSSA (methicillin susceptible Staphylococcus aureus) septicemia Anemia Pyelonephritis, acute Cellulitis of left abdominal wall (Acute) S/P sinus surgery Hypertrophy of both inferior nasal turbinates Chronic sinusitis, unspecified Controlled type 2 diabetes mellitus without complication Eustachian tube dysfunction Allergic rhinitis Vitamin B12 deficiency (dietary) anemia Chronic anemia Iron deficiency anemia Daytime sleepiness GERD (gastroesophageal reflux disease) Leukopenia (Acute) Sinus tachycardia Depression Chronic back pain Benign essential hypertension Lumbar radiculopathy (Chronic) Mixed hyperlipidemia Morbid obesity (Chronic) Medical History History of kidney stones History of GI bleed (~2020) Difficult intravenous access Snoring Dizziness Type 2 diabetes mellitus Lumbar radiculopathy Hx of chest pain Mixed hyperlipidemia Benign essential hypertension Seasonal allergies Dyspnea on exertion History of pernicious anemia Acid reflux History of skin cancer Anxiety and depression Morbid obesity Cervical radiculopathy Chronic pain Diabetic peripheral neuropathy Generalized osteoarthritis Surgical History History of endoscopic sinus surgery History of esophagogastroduodenoscopy (EGD) History of tonsillectomy Expected difficult intubation Hx of shoulder replacement (11/25/23) Hx of basal cell carcinoma excision Hx of esophagogastroduodenoscopy History of carpal tunnel release of both wrists History of ankle surgery History of colonoscopy History of cholecystectomy History of delivery History of back surgery Family History Sister Family history of diabetes mellitus Father Diabetes Family history of diabetes mellitus Heart disease Myocardial infarction Hypertension Mother Anxiety Dementia Depression Breast cancer Hypertension Asthma Other Family history of colon cancer in father No family history of adverse response to anesthesia Denies family history of Ovarian cancer Prostate cancer Alzheimer disease Bipolar disorder Kidney disease Lung cancer COPD (chronic obstructive pulmonary disease) Colorectal cancer Colonic polyp Stroke Social History Smoking Status: Never smoker Second Hand Exposure: No; Do You Dip or Chew Tobacco: No; Hx Alcohol Use: No Hx Substance Use: No Preferred Language: [place] Communication Ability: Effective Visual Impairment: No Limitations Hearing Ability: Normal Php Software Engineer Required: No Beliefs That Will Affect Care: None marital status: Current Living Situation: Spouse Current Living Situation Comment: Home with spouse current occupational status: disabled Feels Safe at Home: Yes Childhood Exposure to Second-Hand Smoke: Yes caffeine: Yes during the past year weight has: remained stable Dental Care, Regularly: No Physical Activity Frequency: Does not Exercise Seatbelt Use: always Sunscreen Use: Yes Assistive Devices: None Allergies Allergies Allergy/AdvReac Type Severity Reaction Status Date / Time Sulfa (Sulfonamide Allergy Severe Anaphylaxis Verified 11/21/24 09:48 Antibiotics) meclizine Allergy Intermediate Headache Verified 11/21/24 09:48 acetaminophen [From Percocet] AdvReac Mild N/V Verified 11/21/24 09:48 oxycodone [From Percocet] AdvReac Mild Nausea Verified 11/21/24 09:48 Home Meds Home Medications Medication Instructions Recorded Confirmed cetirizine 10 mg tablet 10 mg PO QAM 12/26/18 11/21/24 cyanocobalamin (vitamin B-12) 50 1,000 mcg PO QAM 03/01/21 11/21/24 mcg tablet (Vitamin B-12) aspirin 81 mg capsule 81 mg PO QAM 03/26/21 11/21/24 melatonin 10 mg tablet 10 mg PO HS 03/26/21 11/21/24 fluticasone propionate 50 2 spray intranasal UD PRN allergies 11/17/23 11/21/24 mcg/actuation nasal spray,suspension vitamin B complex 1 cap PO QAM 11/17/23 11/21/24 cholecalciferol (vitamin D3) 125 125 mcg PO QAM 06/28/24 11/21/24 mcg (5,000 unit) tablet (Vitamin D3) docusate sodium 100 mg capsule 100 mg PO HS 06/28/24 11/21/24 (Stool Softener) magnesium oxide 400 mg (241.3 mg 400 mg PO DAILY 07/25/24 11/21/24 magnesium) tablet (MagOx) heparin lock flush (porcine) 10 50 unit IV TID 10/11/24 11/21/24 unit/mL intravenous solution dulaglutide 4.5 mg/0.5 mL 4.5 mg subcut UD 11/21/24 11/21/24 subcutaneous pen injector (Trulicity) duloxetine 60 mg capsule,delayed 60 mg PO UD 11/21/24 11/21/24 release ferrous gluconate 324 mg (38 mg 324 mg PO UD 11/21/24 11/21/24 iron) tablet insulin glargine 100 unit/mL (3 20 unit subcut UD 11/21/24 11/21/24 mL) subcutaneous pen (Lantus Solostar U-100 Insulin) mupirocin 2 % topical ointment 1 applic topical UD 11/21/24 11/21/24 Previous Rx's Medication Instructions Recorded nitroglycerin 0.4 mg sublingual 0.4 mg sublingual Q5M PRN chest 04/27/23 tablet pain #25 tabs pen needle, diabetic 32 gauge x #100 ea 09/22/23" (BD Ultra-Fine Skylar Pen Needle) ascorbic acid (vitamin C) 250 mg 250 mg PO BID #180 tabs 11/16/23 tablet metformin 1,000 mg tablet 1,000 mg PO BID #180 tabs 02/19/24 lancets 30 gauge (OneTouch #300 ea 05/16/24 UltraSoft 2 Lancet) triamcinolone acetonide 0.1 % 1 applic topical BID PRN itching 07/18/24 topical cream #80 grams valsartan 320 1 tab PO QAM #90 tabs 08/10/24 mg-hydrochlorothiazide 25 mg tablet omeprazole 40 mg capsule,delayed 40 mg PO QAM #90 caps 08/22/24 release potassium chloride 10 mEq 20 meq (2 x 10 mEq) PO BID #360 08/22/24 capsule,extended release caps lovastatin 40 mg tablet 40 mg PO HS #90 tabs 08/31/24 buspirone 15 mg tablet 15 mg PO BID #180 tabs 09/20/24 glimepiride 4 mg tablet 4 mg PO .COMPLEX #180 tabs 10/19/24 hydrocodone 7.5 mg-acetaminophen 1 tab PO Q6H PRN pain #120 tabs 10/27/24 325 mg tablet OneTouch Ultra Test (blood sugar #100 ea 11/18/24 diagnostic) levofloxacin 750 mg tablet 750 mg PO DAILY 7 days #7 tabs 11/18/24 metoprolol succinate 25 mg 25 mg PO QAM #90 tabs 11/18/24 tablet,extended release 24 hr mirtazapine 45 mg tablet 45 mg PO QPM #90 tabs 11/18/24 Results & Data (ED) Vital Signs Vital Signs - 24 hr 11/21/24 11:29 11/21/24 11:41 11/21/24 11:57 Temperature 36.9 C Temperature Source Oral Pulse Rate 111 H 113 H Pulse Rate [Exercises] Pulse Rate [Recovery] Pulse Rate [Resting] Pulse Rate [Right Finger] Respiratory Rate 32 H Respiratory Rate [Exercises] Respiratory Rate [Recovery] Respiratory Rate [Resting] Respiratory Effort / Characteristics Labored Respiratory Depth Respiratory Pattern Regular Blood Pressure 146/64 H Blood Pressure [Right Arm] Blood Pressure Mean 91 Blood Pressure Mean [Right Arm] Blood Pressure Position Sitting Pulse Oximetry 92 96 Pulse Oximetry [Exercises] Pulse Oximetry [Recovery] Pulse Oximetry [Resting] Oxygen Delivery Method Room Air Room Air Sepsis Recent Fever Within 48 Hours No Sepsis New/Unexplained Change in Mental Status No Sepsis Action Taken by Nursing No Action Required 11/21/24 11:58 11/21/24 12:19 11/21/24 13:17 Temperature Temperature Source Pulse Rate Pulse Rate [Exercises] Pulse Rate [Recovery] Pulse Rate [Resting] Pulse Rate [Right Finger] 97 H Respiratory Rate 20 Respiratory Rate [Exercises] Respiratory Rate [Recovery] Respiratory Rate [Resting] Respiratory Effort / Characteristics Non-Labored Spontaneous Non-Labored Spontaneous Non-Labored Spontaneous Respiratory Depth Normal Normal Normal Respiratory Pattern Blood Pressure Blood Pressure [Right Arm] 103/65 Blood Pressure Mean Blood Pressure Mean [Right Arm] 77 Blood Pressure Position Pulse Oximetry 98 Pulse Oximetry [Exercises] Pulse Oximetry [Recovery] Pulse Oximetry [Resting] Oxygen Delivery Method Room Air Sepsis Recent Fever Within 48 Hours Sepsis New/Unexplained Change in Mental Status Sepsis Action Taken by Nursing 11/21/24 13:31 11/21/24 13:44 Temperature Temperature Source Pulse Rate Pulse Rate [Exercises] 68 Pulse Rate [Recovery] 112 H Pulse Rate [Resting] 110 H Pulse Rate [Right Finger] Respiratory Rate Respiratory Rate [Exercises] 36 H Respiratory Rate [Recovery] 24 Respiratory Rate [Resting] 24 Respiratory Effort / Characteristics Non-Labored Spontaneous SOB on Exertion Respiratory Depth Respiratory Pattern Blood Pressure Blood Pressure [Right Arm] Blood Pressure Mean Blood Pressure Mean [Right Arm] Blood Pressure Position Pulse Oximetry Pulse Oximetry [Exercises] 92 Pulse Oximetry [Recovery] 100 Pulse Oximetry [Resting] 98 Oxygen Delivery Method Room Air Sepsis Recent Fever Within 48 Hours Sepsis New/Unexplained Change in Mental Status Sepsis Action Taken by Nursing Laboratory Data 11/21/24 11:53 11/21/24 11:53 Lab Results 11/21/24 11/21/24 Range/Units 11:53 11:54 WBC 4.26 L (4.8-10.8) K/ul RBC 3.34 L (4.20-5.40) M/uL Hgb 9.5 L (12.0-16.0) g/dl Hct 29.7 L (37.0-47.0) % MCV 88.9 (80.0-100.0) fL MCH 28.4 (25.0-34.0) pg MCHC 32.0 (32.0-36.0) g/dL RDW Std Deviation 45.7 (36.4-46.3) fL RDW Coeff of Ashlee 14.1 (11.5-14.5) % Plt Count 243 (130-400) K/uL MPV 9.2 L (9.4-12.4) fL Immature Gran % (Auto) 0.5 % Neut % (Auto) 72.9 % Lymph % (Auto) 18.8 % [place] % (Auto) 5.9 % Eos % (Auto) 1.4 % Baso % (Auto) 0.5 % Neut # (Auto) 3.11 (1.40-6.50) K/uL Lymph # (Auto) 0.80 L (1.20-3.40) K/uL [place] # (Auto) 0.25 (0.11-0.59) K/uL Eos # (Auto) 0.06 (0.00-0.50) K/uL Baso # (Auto) 0.02 (0.00-0.20) K/uL Immature Gran # (Auto) 0.02 (0.01-0.20) K/uL Sodium 138 (136-145) mmol/L Potassium 4.7 (3.5-5.1) mmol/L Chloride 104 (98-107) mmol/L Carbon Dioxide 23 (21-32) mmol/L Anion Gap 11 (3-11) BUN 17 (6-23) mg/dl Creatinine 0.88 (0.6-1.2) mg/dl Est Cr Clr Drug Dosing 78.0 ml/min eGFR 71.09 BUN/Creatinine Ratio 19.3 (10-20) Glucose 192 H (70-99(Fasting)) mg/dl Calcium 10.0 (8.6-10.3) mg/dl Total Bilirubin 0.6 (0.2-1.0) mg/dl AST 40 H (13-39) U/L ALT 28 (7-52) U/L Alkaline Phosphatase 101 (34-104) U/L Troponin I High Sens 6.0 (0-14) pg/ml Total Protein 8.1 (6.0-8.3) gm/dl Albumin 3.6 (3.4-5.0) gm/dl Globulin 4.5 H (2.5-4.0) gm/dl Albumin/Globulin Ratio 0.8 L (0.9-2) Lipase 40 (11-82) U/L SARS-CoV-2 (PCR) NEGATIVE (Negative) Influenza Type A (PCR) Negative (Neg) Influenza Type B (PCR) Negative (Neg) RSV (RT-PCR) Negative (Neg) Administered Medications Discontinued Medications Albuterol (Albuterol 0.083% Nebu Soln 3 Ml Vial) 2.5 mg NEB NOW STA; Protocol Stop: 11/21/24 11:47 Last Admin: 11/21/24 12:02 Dose: 2.5 mg Documented By: NRB Albuterol (Albuterol 0.083% Nebu Soln 3 Ml Vial) 5 mg NEB NOW STA; Protocol Stop: 11/21/24 13:37 Last Admin: 11/21/24 13:44 Dose: 5 mg Documented By: NRB Ioversol (Optiray 320 125ml) 115 ml IV ONCE ONE Stop: 11/21/24 14:51 Last Admin: 11/21/24 14:50 Dose: 115 ml Documented By: ABS Imaging Data Radiologist's Impression: Chest X-Ray 11/21/24 11:44 XR chest 1V portable CLINICAL HISTORY: Chest pain, nonspecific COMPARISON STUDY: 05/02/2021 FINDINGS: Heart size and pulmonary vasculature are normal. No consolidation or pleural effusion. No pneumothorax. IMPRESSION: No acute findings. ACT 112: Negative or not required by law. Electronically signed by: Raheel Robbins M.D. 11/21/2024 12:17 PM Abdomen/Pelvis CT 11/21/24 14:[address] WITHOUT CONTRAST CT DOSE: 2348 HISTORY: Right flank pain; kidney stone r/o TECHNIQUE: Multiaxial CT images of the abdomen and pelvis were performed without contrast. A dose lowering technique was utilized adhering to the principles of ALARA. COMPARISON STUDY: None FINDINGS: ABDOMEN: There is nodular contour of the liver consistent with cirrhosis. Gallbladder surgically absent. There is splenomegaly measuring 17 cm consistent with portal hypertension. Pancreas and adrenal glands have an unremarkable non- IV contrast appearance. There are scattered atherosclerotic calcifications. No abdominal aortic aneurysm. The kidneys show no hydronephrosis or calculi bilaterally. Pelvis: Urinary bladder is empty. Uterus and adnexa are grossly unremarkable. There is minimal sigmoid diverticulosis. No acute diverticulitis. No bowel inflammation or obstruction. Normal appendix. No free fluid or free air. No enlarged adenopathy. There are a few small venous varices in the central pelvis. There is lower lumbar metallic fusion. There are lumbar degenerative changes. IMPRESSION: 1. No acute findings. 2. Cirrhosis and portal hypertension. No ascites. 3. Otherwise as described. ACT 112: Negative or not required by law. The above report was generated using voice recognition software. It may contain grammatical, syntax or spelling errors. Electronically signed by: Raheel Robbins M.D. 11/21/2024 3:21 PM Chest CTA 11/21/24 14:35 CT angio chest PE protocol CT DOSE: 2348.6 mGy.cm HISTORY: PE. TECHNIQUE: Multiple CTA images of the chest were obtained after the intravenous administration of 115 ml Optiray. Coronal and sagittal MIPS were obtained from the axial data set and were submitted for review. All measurements were obtained according to NASCET criteria. A dose lowering technique was utilized adhering to the principles of ALARA. COMPARISON STUDY: 09/24/2021 FINDINGS: There is motion artifact. There is mild atelectasis at the dependent lung bases. There is no pneumonia or pleural effusion. No pneumothorax. No enlarged adenopathy. No pericardial effusion. There are mild coronary artery calcifications. Evaluation of the small distal segmental and smaller pulmonary artery branches in the lower lobes is limited by motion artifact. No pulmonary embolism seen. There are mild thoracic spine degenerative changes. IMPRESSION: Limited evaluation of the small lower lobe pulmonary arterial branches. No pulmonary embolism seen. ACT 112: Negative or not required by law. The above report was generated using voice recognition software. It may contain grammatical, syntax or spelling errors. Electronically signed by: Raheel Robbins M.D. 11/21/2024 3:16 PM Discharge Plan Visit Data Chief Complaint: Referred by Doctor Stated Complaint: PNEUMONIA/REF BY DR CLARK ED Provider: Louis Jane Discharge Problem: Shortness of breath, Weakness, Anemia, Leukopenia Patient Disposition: Home - Self-Care Condition: Fair Discharge Instructions Interventions: ED Discharge Assessment Last Done: 11/21/24 17:50 Discharge Problem: Anemia Qualifiers: Anemia type: unspecified type Qualified Code(s): D64.9 - Anemia, unspecified Leukopenia Qualifiers: Leukopenia type: unspecified Qualified Code(s): D72.819 - Decreased white blood cell count, unspecified
[2024-11-21] MEDS: ALBUTEROL 0.083% NEBU SOLN 3 ML VIAL NEB STA ×2 (12:02→13:44)
--- NOTE | 2024-11-21 12:18 | XRay Report ---
XR chest 1V portable CLINICAL HISTORY: Chest pain, nonspecific COMPARISON STUDY: 05/02/2021 FINDINGS: Heart size and pulmonary vasculature are normal. No consolidation or pleural effusion. No p neumothorax. IMPRESSION: No acute findings. ACT 112: Negative or not required by law. Electronically signed by: Raheel Robbins M.D. 11/21/2024 12:17 PM
[2024-11-21 12:23] LABS: Basophils # (auto) 0.02 K/uL (0.00-0.20); Basophils % (auto) 0.5 %; Eosinophils # (auto) 0.06 K/uL (0.00-0.50); Eosinophils % (auto) 1.4 %; Hematocrit (blood only) 29.7 % (37.0-47.0); Hemoglobin 9.5 g/dl (12.0-16.0); Immature Granulocytes # (auto) 0.02 K/uL (0.01-0.20); Immature Granulocytes % (auto) 0.5 %; Lymphocytes % (auto) 18.8 %; Mean Corpuscular Hemoglobin 28.4 pg (25.0-34.0); Mean Corpuscular Volume 88.9 fL (80.0-100.0); Mean Platelet Volume 9.2 fL (9.4-12.4); Monocytes # (auto) 0.25 K/uL (0.11-0.59); Monocytes % (auto) 5.9 %; Neutrophils # (auto) 3.11 K/uL (1.40-6.50); Neutrophils % (auto) 72.9 %; Platelet Count 243 K/uL (130-400); RDW Coefficient of Variation 14.1 % (11.5-14.5); RDW Standard Deviation 45.7 fL (36.4-46.3); Red Blood Count 3.34 M/uL (4.20-5.40); White Blood Count 4.26 K/ul (4.8-10.8)
[2024-11-21 12:37] LABS: Albumin Globulin Ratio 0.8 (0.9-2); BUN Creatinine Ratio 19.3 (10-20); Bilirubin,Total 0.6 mg/dl (0.2-1.0); Globulin 4.5 gm/dl (2.5-4.0); Potassium 4.7 mmol/L (3.5-5.1); Total Protein 8.1 gm/dl (6.0-8.3)
[2024-11-21 12:51] LABS: Influenza A virus by PCR Negative (Neg); Influenza B virus by PCR Negative (Neg); RSV by PCR Negative (Neg); SARS CoV2 RNA(COVID-19) Ceph NEGATIVE (Negative)
--- NOTE | 2024-11-21 13:50 | History & Physical Report ---
Date of Service November 21, 2024 Assessment & Plan (1) Upper respiratory infection: (2) UTI (urinary tract infection): (3) Controlled type 2 diabetes mellitus without complication: (4) Lumbar radiculopathy: Plan This patient is a 68yo female with recent h/o MSSA septicemia d/t R pyel onephritis at [facility] in September 2024 who presented on 11/21 for worsening URI symptoms. #Worsening SOB | productive cough | wheezing Ambulatory pulse ox study performed in the emergency department; patient dropped from approximately 98-100% at rest to ~91% on RA when walking No h/o COPD/asthma/obstructive lung disease CXR without acute findings Afebrile; not hypoxic; however, patient is tachypneic + tachycardic at 110 bpm on arrival Leukopenic in the setting of multiple infections (septic at [facility], sinus infection in July, etc.) COVID, flu, RSV negative Not currently on anticoagulation Given recent hospitalization/sepsis + tachycardia + BMI >40, chest CTA ordered No pulmonary embolism on imaging; no pneumonia or pleural effusions Suspect viral upper respiratory infection vs mucous plugging IS, flutter valve Guaifenesin 1200 mg p.o. BID for cough Scheduled 3 mL albuterol neb Q6R Hypertonic 7% saline nebs BIDR Titrate supplemental oxygen as needed to maintain SpO2 >94% Continuous pulse oximetry #UTI | H/o kidney stones Clinically, patient endorses ongoing burning with urination, and right-sided lower groin / flank pain UTI dx on 11/18; started on Levaquin UCx on 11/18 growing pansensitive Klebsiella; repeat UA/UCx A/P CT without contrast did not reveal acute findings Blood cultures drawn in the ED Ceftriaxone 2000 mg IV q24h #Recent MSSA septicemia infection Noted; h/o sepsis secondary to right pyelonephritis + left lower abdominal/pannus infection at [facility] at the beginning of September 2024 Per ID note 10/06 -- 09/02 bottle positive blood culture with MSSA; FAYE on 10/04/2024 showed no evidence of IE or vegetations Discharged on PICC line + cefazolin x 4 weeks (10/01 to 10/28) and rifampin 300mg p.o. BID, which was d/c'd per ID recommendation; MSSA bacteremia of unclear etiology but presence of prosthetic joint warranted 4 weeks of antibiotics; no evidence of hardware infection #Lumbar radiculopathy Chronic/unchanged from discharge on 10/06 for [facility], per patient; no reported fevers at home MRI lumbar spine w/wo contrast on revealed multilevel degenerative changes, most prominent L2-3 with severe spinal stenosis; no evidence of spinal infection at that time However, if no improvement in symptoms, will need to consider repeating lumbar spine MRI based on recent history Hold hydrocodone-acetaminophen tablets as this could be suppressing fever curve Oxycodone 5mg q6h as needed for pain 6-10 Lidocaine patch application daily Miralax PRN #Ambulatory dysfunction PT/OT evaluations appreciated Fall precautions #T2DM Last A1c at 6.2% on 09/19/2024 Hold metformin, glimepiride, Trulicity Patient normally on Lantus 20u QPM Dose reduce to Lantus 15u QPM while inpatient SSI; with target BSG range 110-140mg/dL, CF 40, carb ratio 13 T2DM diet BSG ACHS Adjust regimen as needed #Iron deficiency anemia Hgb 9.5 on arrival No active bleeding Continue iron supplements Trend CBC #HLD - Continue statin #HTN - Continue metoprolol, valsartan #GERD - Continue PPI #Depression/anxiety - Continue buspirone, duloxetine Disposition: Admit to [facility] telemetry DVT PPx: Lovenox 40mg SQ q12h History of Present Illness Chief Complaint: Referred by Doctor Primary Care Provider: Steve Pierre MD Mrs. Camarillo is a 68yo female with PMHx of T2DM, MSSA septicemia, liver cirrhosis, depression, HTN, lumbar radiculopathy, and SHY. 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 Normally she ambulates without assist devices, but reports that she could barely get out of bed this morning due to severe POLANCO. She is now experiencing both SOB at rest and with exertion. Productive cough (yellowish at times, but occasionally clear). No hemoptysis. She does endorse pleuritic chest pain yesterday, but this resolved today. No prior history of asthma or COPD. She did see her PCP on Saturday 11/18 and was prescribed Levaquin for a UTI. She then touch base with her PCP again today, and was sent in for tachycardia and right flank pain (given her history of kidney stones as well as pyelonephritis). Recent hospitalization at the beginning of September 2024 at [facility] for MSSA septicemia secondary to right pyelonephritis. Patient is currently taking hydrocodone tablets every 6 hours as needed for her lower back pain. She also uses lidocaine patches. Patient took her regular morning medicine today, only recent change in medication was that she was started on Levaquin this week. She manages her own medicine at home. No supplemental oxygen at baseline. No CPAP at night. No sick contacts. She is not currently on blood thinners. She denies prior history of DVT/PE; no recent injuries to her legs. However, she does have history of peripheral tunnel surgery in the right leg due to bone spurs; note this was years ago. No prior history of heart failure. Patient denies smoking, tobacco use, recent alcohol use. Patient is tachycardic at 112 bpm, and tachypneic at 36 RPM at time of admission. ED Course: Albuterol 5mg neb x 1 Albuterol 2.5mg neb x 1 ROS: Patient endorses night-sweats, body aches, wheezing, productive cough (yellow/clear sputum), lower back pain (chronic), chest palpitations, pleuritic CP (resolved yesterday), nausea from lower back pain and pain in the right flank, burning with urination, Patient unsure of blood in urine; unsure of change in color/smell of urine Patient denies fever, chills, chest pain, hemoptysis, abdominal pain, diarrhea, blood in stool, numbness/tingling in the arms or legs, or pain/swelling/erythema in the legs. Allergies Allergy/AdvReac Type Severity Reaction Status Date / Time Sulfa (Sulfonamide Allergy Severe Anaphylaxis Verified 11/21/24 09:48 Antibiotics) meclizine Allergy Intermediate Headache Verified 11/21/24 09:48 acetaminophen [From Percocet] AdvReac Mild N/V Verified 11/21/24 09:48 oxycodone [From Percocet] AdvReac Mild Nausea Verified 11/21/24 09:48 Home Medications Medication Instructions Recorded Confirmed Type cetirizine 10 mg tablet 10 mg PO QAM 12/26/18 11/21/24 History cyanocobalamin (vitamin B-12) 50 1,000 mcg PO QAM 03/01/21 11/21/24 History mcg tablet (Vitamin B-12) aspirin 81 mg capsule 81 mg PO QAM 03/26/21 11/21/24 History melatonin 10 mg tablet 10 mg PO HS 03/26/21 11/21/24 History nitroglycerin 0.4 mg sublingual 0.4 mg sublingual Q5M PRN chest 04/27/23 11/21/24 Rx tablet pain #25 tabs pen needle, diabetic 32 gauge x #100 ea 09/22/23 11/21/24 Rx 5/32" (BD Ultra-Fine Skylar Pen Needle) ascorbic acid (vitamin C) 250 mg 250 mg PO BID #180 tabs 11/16/23 11/21/24 Rx tablet fluticasone propionate 50 2 spray intranasal UD PRN allergies 11/17/23 11/21/24 History mcg/actuation nasal spray,suspension vitamin B complex 1 cap PO QAM 11/17/23 11/21/24 History metformin 1,000 mg tablet 1,000 mg PO BID #180 tabs 02/19/24 11/21/24 Rx lancets 30 gauge (OneTouch #300 ea 05/16/24 11/21/24 Rx UltraSoft 2 Lancet) cholecalciferol (vitamin D3) 125 125 mcg PO QAM 06/28/24 11/21/24 History mcg (5,000 unit) tablet (Vitamin D3) docusate sodium 100 mg capsule 100 mg PO HS 06/28/24 11/21/24 History (Stool Softener) triamcinolone acetonide 0.1 % 1 applic topical BID PRN itching 07/18/24 11/21/24 Rx topical cream #80 grams magnesium oxide 400 mg (241.3 mg 400 mg PO DAILY 07/25/24 11/21/24 History magnesium) tablet (MagOx) valsartan 320 1 tab PO QAM #90 tabs 08/10/24 11/21/24 Rx mg-hydrochlorothiazide 25 mg tablet omeprazole 40 mg capsule,delayed 40 mg PO QAM #90 caps 08/22/24 11/21/24 Rx release potassium chloride 10 mEq 20 meq (2 x 10 mEq) PO BID #360 08/22/24 11/21/24 Rx capsule,extended release caps lovastatin 40 mg tablet 40 mg PO HS #90 tabs 08/31/24 11/21/24 Rx buspirone 15 mg tablet 15 mg PO BID #180 tabs 09/20/24 11/21/24 Rx heparin lock flush (porcine) 10 50 unit IV TID 10/11/24 11/21/24 History unit/mL intravenous solution glimepiride 4 mg tablet 4 mg PO .COMPLEX #180 tabs 10/19/24 11/21/24 Rx hydrocodone 7.5 mg-acetaminophen 1 tab PO Q6H PRN pain #120 tabs 10/27/24 11/21/24 Rx 325 mg tablet OneTouch Ultra Test (blood sugar #100 ea 11/18/24 11/21/24 Rx diagnostic) levofloxacin 750 mg tablet 750 mg PO DAILY 7 days #7 tabs 11/18/24 11/21/24 Rx metoprolol succinate 25 mg 25 mg PO QAM #90 tabs 11/18/24 11/21/24 Rx tablet,extended release 24 hr mirtazapine 45 mg tablet 45 mg PO QPM #90 tabs 11/18/24 11/21/24 Rx dulaglutide 4.5 mg/0.5 mL 4.5 mg subcut UD 11/21/24 11/21/24 History subcutaneous pen injector (Trulicity) duloxetine 60 mg capsule,delayed 60 mg PO UD 11/21/24 11/21/24 History release ferrous gluconate 324 mg (38 mg 324 mg PO UD 11/21/24 11/21/24 History iron) tablet insulin glargine 100 unit/mL (3 20 unit subcut UD 11/21/24 11/21/24 History mL) subcutaneous pen (Lantus Solostar U-100 Insulin) mupirocin 2 % topical ointment 1 applic topical UD 11/21/24 11/21/24 History Past Med/Surg History Problem List (Updated 11/21/24 @ 15:13 by Akira Angel PA-C) UTI (urinary tract infection) Upper respiratory infection Cirrhosis Portal hypertension Hyperkalemia Bacteremia of undetermined etiology MSSA (methicillin susceptible Staphylococcus aureus) septicemia Anemia Pyelonephritis, acute Cellulitis of left abdominal wall (Acute) S/P sinus surgery Hypertrophy of both inferior nasal turbinates Chronic sinusitis, unspecified Controlled type 2 diabetes mellitus without complication Eustachian tube dysfunction Allergic rhinitis Vitamin B12 deficiency (dietary) anemia Chronic anemia Iron deficiency anemia Daytime sleepiness GERD (gastroesophageal reflux disease) Leukopenia (Acute) Sinus tachycardia Depression Chronic back pain Benign essential hypertension Lumbar radiculopathy (Chronic) Mixed hyperlipidemia Morbid obesity (Chronic) Medical History History of kidney stones History of GI bleed (~2020) Difficult intravenous access Snoring Dizziness Type 2 diabetes mellitus Lumbar radiculopathy Hx of chest pain Mixed hyperlipidemia Benign essential hypertension Seasonal allergies Dyspnea on exertion History of pernicious anemia Acid reflux History of skin cancer Anxiety and depression Morbid obesity Cervical radiculopathy Chronic pain Diabetic peripheral neuropathy Generalized osteoarthritis Surgical History History of endoscopic sinus surgery History of esophagogastroduodenoscopy (EGD) History of tonsillectomy Expected difficult intubation Hx of shoulder replacement (11/25/23) Hx of basal cell carcinoma excision Hx of esophagogastroduodenoscopy History of carpal tunnel release of both wrists History of ankle surgery History of colonoscopy History of cholecystectomy History of delivery History of back surgery Family History Sister Family history of diabetes mellitus Father Diabetes Family history of diabetes mellitus Heart disease Myocardial infarction Hypertension Mother Anxiety Dementia Depression Breast cancer Hypertension Asthma Other Family history of colon cancer in father No family history of adverse response to anesthesia Denies family history of Ovarian cancer Prostate cancer Alzheimer disease Bipolar disorder Kidney disease Lung cancer COPD (chronic obstructive pulmonary disease) Colorectal cancer Colonic polyp Stroke Social History Smoking Status: Never smoker Second Hand Exposure: No; Do You Dip or Chew Tobacco: No; Hx Alcohol Use: No Hx Substance Use: No Preferred Language: Slovak Communication Ability: Effective Visual Impairment: No Limitations Hearing Ability: Normal 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 Beliefs That Will Affect Care: None marital status: Current Living Situation: Spouse Current Living Situation Comment: Home with spouse current occupational status: disabled Feels Safe at Home: Yes Childhood Exposure to Second-Hand Smoke: Yes caffeine: Yes during the past year weight has: remained stable Dental Care, Regularly: No Physical Activity Frequency: Does not Exercise Seatbelt Use: always Sunscreen Use: Yes Assistive Devices: None Review of Systems Review of Systems: See HPI above Physical Exam Physical Exam: General: Mild respiratory distress; pleasant affect; non-toxic appearing; well- nourished; cooperative; SpO2 100% on RA HEENT: normocephalic, atraumatic; no scleral icterus; PERRLA; vision and hearing intact Neck: supple; no lymphadenopathy; trachea midline Skin: warm, dry without signs of tenting; no cyanosis; no rashes, bruising, lesions, or erythema noted CV: chest wall NTP; RR, tachycardic at 112 bpm; S1/S2 normal; no murmurs/rubs/gallops; pulses intact and symmetric at radial, DP, and PT Lungs: Mild respiratory distress with labored breathing; tachypneic around 30 RPM; symmetrical chest wall expansion; bibasilar crackles in the lower lung minor bilaterally; expiratory wheeze audible without stethoscope; hacking cough ABD: Soft, NTP; BS present; no rebound/guarding; no distention MSK: no tics or fasciculations; no edema noted in the LEs b/l, nonerythematous; patient demonstrates very to wiggle toes and lift legs off the bed bilaterally with 4/5 strength Back: Point tenderness on the right thoracic/lumbar spine; lidocaine patch in place; tender to palpation wrapping around the right flank Neuro: A&Ox3; normal mood and affect; fluent speech; no focal deficits; sensation intact and symmetric in the lower extremities bilaterally Results & Data Results & Data Vital Signs (Past 12 Hours) Vital Signs Temp Pulse Pulse Pulse Pulse Pulse Resp 11/21/24 13:31 68 112 H 110 H 11/21/24 13:17 97 H 20 11/21/24 11:57 11/21/24 11:41 113 H 11/21/24 11:29 36.9 C 111 H 32 H Resp Resp Resp BP BP Pulse Ox Pulse Ox 11/21/24 13:31 36 H 24 24 92 11/21/24 13:17 103/65 98 11/21/24 11:57 96 11/21/24 11:41 11/21/24 11:29 146/64 H 92 Pulse Ox Pulse Ox O2 Del Method 11/21/24 13:31 100 98 Room Air 11/21/24 13:17 Room Air 11/21/24 11:57 Room Air 11/21/24 11:41 11/21/24 11:29 Room Air Laboratory Results Abnormal lab results 11/21/24 Range/Units 11:53 WBC 4.26 L (4.8-10.8) K/ul RBC 3.34 L (4.20-5.40) M/uL Hgb 9.5 L (12.0-16.0) g/dl Hct 29.7 L (37.0-47.0) % MPV 9.2 L (9.4-12.4) fL Lymph # (Auto) 0.80 L (1.20-3.40) K/uL Glucose 192 H (70-99(Fasting)) mg/dl AST 40 H (13-39) U/L Globulin 4.5 H (2.5-4.0) gm/dl Albumin/Globulin Ratio 0.8 L (0.9-2) Diagnostic Findings Chest X-Ray 11/21/24 11:44 XR chest 1V portable CLINICAL HISTORY: Chest pain, nonspecific COMPARISON STUDY: 05/02/2021 FINDINGS: Heart size and pulmonary vasculature are normal. No consolidation or pleural effusion. No pneumothorax. IMPRESSION: No acute findings. ACT 112: Negative or not required by law. Electronically signed by: Raheel Robbins M.D. 11/21/2024 12:17 PM ECG Additional Comments: ECG revealed sinus tachycardia at 112 bpm; QTc 423 Code Status & VTE Plan Code Status Full code VTE Prophylaxis Plan VTE Prophylaxis will be ordered: Yes Supervising Physician Co-Signing Physician Notes Patient was seen and examined independently I discussed the case with Akira Angel PA-C. 68-year-old female recently discharged from [facility] in September with MSSA bacteremia treated with IV antibiotics postdischarge. No defined source was found at that time. Patient had a complete workup including a transesophageal echocardiogram. Patient presents with worsening shortness of breath after being treated for an outpatient Klebsiella pneumonia UTI with levofloxacin. In the emergency department she does have some productive rhonchi which clear with coughing she has significant right flank pain which is reminds her of her previous kidney stone. There is no overt skin changes over the area to consider zoster. Her abdomen from a previous cellulitis is healed. Initial workup is unrevealing including a CTA of for PE and pneumonia, CT abdomen pelvis to rule out renal colic or renal stones, plain chest x-ray to rule out pneumonia also At this point in time we will bring her in the hospital continuing antibiotics to cover Klebsiella pneumonia considering reevaluation of her hardware in her back which is near the source of her right-sided pain. Physical exam she is pleasant she is conversant her cardiac exam is regular lungs have rhonchi more in the left lung which clear with coughing abdomen is normal bowel sounds she is morbidly obese she has tenderness to the right side and the right CVA angle area. No new skin changes I reviewed pertinent past medical social family history and also the plan of care and agree with the plan of care. Any exceptions will be noted below PG Care Time/CCT Total # of Minutes Spent Total Time Spent with Patient: Total time spent is greater than 50% in coordination of care (as documented) at patient's floor/unit and/or counseling patient: Coding [place] [address] INT INP/OBS CARE 3/75MIN Patient Type Established History Comprehensive Exam Comprehensive Medical Decision Making High Complexity Diagnoses Upper respiratory infection J06.9 UTI (urinary tract infection) N39.0 Controlled type 2 diabetes mellitus without complication E11.9 Lumbar radiculopathy M54.16
[2024-11-21] MEDS: OPTIRAY 320 125ml IV ONE (14:50)
--- NOTE | 2024-11-21 15:17 | CT Scan Report ---
CT angio chest PE protocol CT DOSE: 2348.6 mGy.cm HISTORY: PE. TECHNIQUE: Multiple CTA images of the chest were obtained after the intravenous administration of 115 ml Optiray. Coronal and sagittal MIPS were obtained from the axial data set and were submitted for review. All measurements were obtained according to NASCET criteria. A dose lowering technique was u tilized adhering to the principles of ALARA. COMPARISON STUDY: 09/24/2021 FINDINGS: There is motion artifact. There is mild atelectasis at the dependent lung bases. There is n o pneumonia or pleural effusion. No pneumothorax. No enlarged adenopathy. No pericardial effusion. Th ere are mild coronary artery calcifications. Evaluation of the small distal segmental and smaller pul monary artery branches in the lower lobes is limited by motion artifact. No pulmonary embolism seen. There are mild thoracic spine degenerative changes. IMPRESSION: Limited evaluation of the small lower lobe pulmonary arterial branches. No pulmonary embo lism seen. ACT 112: Negative or not required by law. The above report was generated using voice recognition software. It may contain grammatical, syntax o r spelling errors. Electronically signed by: Raheel Robbins M.D. 11/21/2024 3:16 PM
--- NOTE | 2024-11-21 15:22 | CT Scan Report ---
ABDOMEN AND PELVIS CT WITHOUT CONTRAST CT DOSE: 2348 HISTORY: Right flank pain; kidney stone r/o TECHNIQUE: Multiaxial CT images of the abdomen and pelvis were performed without contrast. A dose lo wering technique was utilized adhering to the principles of ALARA. COMPARISON STUDY: None FINDINGS: ABDOMEN: There is nodular contour of the liver consistent with cirrhosis. Gallbladder surgically abse nt. There is splenomegaly measuring 17 cm consistent with portal hypertension. Pancreas and adrenal g lands have an unremarkable non-IV contrast appearance. There are scattered atherosclerotic calcificat ions. No abdominal aortic aneurysm. The kidneys show no hydronephrosis or calculi bilaterally. Pelvis: Urinary bladder is empty. Uterus and adnexa are grossly unremarkable. There is minimal sigmoi d diverticulosis. No acute diverticulitis. No bowel inflammation or obstruction. Normal appendix. No free fluid or free air. No enlarged adenopathy. There are a few small venous varices in the central p zhane. There is lower lumbar metallic fusion. There are lumbar degenerative changes. IMPRESSION: 1. No acute findings. 2. Cirrhosis and portal hypertension. No ascites. 3. Otherwise as described. ACT 112: Negative or not required by law. The above report was generated using voice recognition software. It may contain grammatical, syntax o r spelling errors. Electronically signed by: Raheel Robbins M.D. 11/21/2024 3:21 PM
[2024-11-21] MEDS ORDERED: GLUCAGON FOR INJ 1 MG VIAL SQ PRN (17:49)
[2024-11-21] MEDS ORDERED: TRIAMCINOLONE ACET 0.1% CR 15 GM TUBE TOP PRN (17:49)
[2024-11-21] MEDS ORDERED: POLYETHYLENE (MIRALAX) 17 GM PACK PO PRN (17:49)
[2024-11-21] MEDS ORDERED: GLUCOSE 10 TAB/TUBE PO PRN (17:49)
[2024-11-21] MEDS ORDERED: FLUTICASONE PROPIONATE NA SPR 16 GM BTL PRN (17:49)
[2024-11-21] MEDS ORDERED: GLUCOSE 40% GEL 15 GM TUBE PO PRN (17:49)
[2024-11-21] MEDS ORDERED: DEXTROSE 50% 50 ML SYRINGE IV PRN (17:49)
[2024-11-21] MEDS ORDERED: CARBOHYDRATES FOR HYPOGLYCEMIA PO PRN (17:49)
[2024-11-21] MEDS: cefTRIAXone SODIUM 2,000 MG/50 ML BAG IV STA (17:53)
[2024-11-21] MEDS: ACETAMINOPHEN 325 MG TAB PO PRN (18:03)
[2024-11-21 18:22] LABS: Appearance Urine Clear (Clear); Bacteria Urine Automated None Seen (None Seen); Bilirubin Urine Negative (Negative); Blood Urine Negative (Negative); Cast Urine Automated 0-2 /lpf (0-2); Color Urine Yellow; Glucose Urine UA Negative (Negative); Ketones Urine Negative (Negative); Leukocyte Esterase Urine Negative (Negative); Nitrite Urine Negative (Negative); Protein Urine Trace (Negative); RBC Urine Automated 0-2 /hpf (0-2); Specific Gravity Urine > 1.045 (1.000-1.030); Urobilinogen Urine Negative (Negative); WBC Urine Automated 0-5 /hpf (0-5); pH Urine 5.5 (4.5-7.5)
[2024-11-21] MEDS: INSULIN ASPART PER UNIT CHARGE SC SCH (19:10)
[2024-11-21] MEDS: ALBUT/IPRATROP 3MG/0.5MG NEB 3 ML VIAL INH SCH (20:23)
[2024-11-21] MEDS: SODIUM CHLOR 7% 4 ML NEB NEB SCH (20:23)
[2024-11-21] MEDS: LANTUS PER UNIT CHARGE SQ SCH (20:56)
[2024-11-21] MEDS: MELATONIN 3 MG TAB PO SCH (20:57)
[2024-11-21] MEDS: ENOXAPARIN INJ 40 MG/0.4 ML SYR SQ SCH (20:57)
[2024-11-21] MEDS: LOVASTATIN 20 MG TAB PO SCH (20:57)
[2024-11-21] MEDS: DULoxetine HCL 60 MG CAP PO SCH (20:57)
[2024-11-21] MEDS: DOCUSATE SODIUM 100 MG CAP PO SCH (20:57)
[2024-11-21] MEDS: guaiFENesin 600 MG TABCR PO SCH (20:57)
[2024-11-21] MEDS: busPIRone 15 MG TAB PO SCH (20:57)
[2024-11-21] MEDS: MIRTAZAPINE SOLTAB 15 MG PO SCH (20:58)
[2024-11-21] MEDS: POTASSIUM CHLORIDE 10 MEQ TABCR PO SCH (20:58)
[2024-11-22 07:01] LABS: Basophils # (auto) 0.01 K/uL (0.00-0.20); Basophils % (auto) 0.3 %; Eosinophils # (auto) 0.05 K/uL (0.00-0.50); Eosinophils % (auto) 1.4 %; Hematocrit (blood only) 27.1 % (37.0-47.0); Hemoglobin 8.5 g/dl (12.0-16.0); Immature Granulocytes # (auto) 0.02 K/uL (0.01-0.20); Immature Granulocytes % (auto) 0.5 %; Lymphocytes # (auto) 0.76 K/uL (1.20-3.40); Lymphocytes % (auto) 20.9 %; Mean Corpuscular Hemoglobin 27.9 pg (25.0-34.0); Mean Corpuscular Hgb Conc 31.4 g/dL (32.0-36.0); Mean Corpuscular Volume 88.9 fL (80.0-100.0); Mean Platelet Volume 9.2 fL (9.4-12.4); Monocytes # (auto) 0.23 K/uL (0.11-0.59); Monocytes % (auto) 6.3 %; Neutrophils # (auto) 2.57 K/uL (1.40-6.50); Neutrophils % (auto) 70.6 %; Platelet Count 207 K/uL (130-400); RDW Coefficient of Variation 14.4 % (11.5-14.5); RDW Standard Deviation 46.2 fL (36.4-46.3); Red Blood Count 3.05 M/uL (4.20-5.40); White Blood Count 3.64 K/ul (4.8-10.8)
[2024-11-22 07:17] LABS: Calcium 9.8 mg/dl (8.6-10.3); Potassium 4.3 mmol/L (3.5-5.1)
[2024-11-22 07:23] LABS: BUN Creatinine Ratio 19.8 (10-20); Creatinine Clr Calc Pharmacy 75.1 ml/min
--- NOTE | 2024-11-22 07:52 | Hospitalist Progress Note ---
Date of Service November 22, 2024 Assessment & Plan (1) Leukopenia: (2) UTI (urinary tract infection): (3) Upper respiratory infection: Plan Patient is a 68yo female with recent h/o MSSA septicemia d/t R pyelonephritis at [facility] in September 2024 who presented on 11/21 for worsening URI symptoms. #URI -Currently on room air -CXR without acute findings -Covid , FLU and RSV negative -CTA with no acute abnormalities -IS, flutter valve -Guaifenesin 1200 mg p.o. BID for cough -Scheduled 3 mL albuterol neb Q6R -Hypertonic 7% saline nebs BID -Continue Pulse Oximetry. -Oxygen as needed -Prednisone stat ordered -Will continue supportive measures for now #UTI #H/O Kidney stones - Has ongoing burning with urination and flank pain -UTI dx on 11/18; started on Levaquin -UCx on 11/18 growing pansensitive Klebsiella; repeat UA/UCx -A/P CT without contrast did not reveal acute findings -Blood culture pending -Ceftriaxone 2000 mg IV q24h #Wound in left flank in the back -Wound consultation - Small mildly tender wound in the setting of Leucopenia, ordered Test for Tick borne illness #Recent MSSA septicemia infection Noted; h/o sepsis secondary to right pyelonephritis + left lower abdominal/pannus infection at [facility] at the beginning of September 2024 Per ID note 10/06 -- / bottle positive blood culture with MSSA; FAYE on 10/04/2024 showed no evidence of IE or vegetations Discharged on PICC line + cefazolin x 4 weeks (10/01 to 10/28) and rifampin 300mg p.o. BID, which was d/c'd per ID recommendation; MSSA bacteremia of unclear etiology but presence of prosthetic joint warranted 4 weeks of antibiotics; no evidence of hardware infection #Lumbar radiculopathy Chronic/unchanged from discharge [place]06 [place] [facility] per patient; no reported fevers at home MRI lumbar spine w/wo contrast on revealed multilevel degenerative changes, most prominent L2-3 with severe spinal stenosis; no evidence of spinal infection at that time However, if no improvement in symptoms, will need to consider repeating lumbar spine MRI based on recent history Hold hydrocodone-acetaminophen tablets as this could be suppressing fever curve Oxycodone 5mg q6h as needed for pain 6-10 Lidocaine patch application daily Miralax PRN #Ambulatory dysfunction PT/OT evaluations appreciated Fall precautions #T2DM Last A1c at 6.2% on 09/19/2024 Hold metformin, glimepiride, Trulicity Patient normally on Lantus 20u QPM Dose reduce to Lantus 15u QPM while inpatient SSI; with target BSG range 110-140mg/dL, CF 40, carb ratio 13 T2DM diet BSG ACHS Adjust regimen as needed #Iron deficiency anemia Hgb 9.5 on arrival No active bleeding Continue iron supplements Trend CBC #HLD - Continue statin #HTN - Continue metoprolol, valsartan #GERD - Continue PPI #Depression/anxiety - Continue buspirone, duloxetine [facility]: Lovenox 40mg SQ q12h Admission and Anticipated Discharge Date Admission Date: November 21, 2024 Supervising Physician Co-Signing Physician Notes I personally examined the patient and verified alvarenga points of history and exam, discussed case, and agree with decision making and plan documented by Dr. Clinton. Agree with prednisone for possible reactive airway component. Transition to PO antibiotics tomorrow. Subjective Overnight events: No any Ongoing symptoms: Still has cough, wheezing and some Shortness of breath. Has wound in her back New concerns:no any Review of Systems Review of Systems: As per HPI Physical Exam Physical Exam: General: Mild respiratory distress; pleasant affect; non-toxic appearing; well- nourished; cooperative; SpO2 100% on RA HEENT: normocephalic, atraumatic; no scleral icterus; PERRLA; vision and hearing intact Neck: supple; no lymphadenopathy; trachea midline Skin: warm, dry without signs of tenting; no cyanosis; no rashes, bruising, lesions, or erythema noted CV: chest wall NTP; RR, tachycardic at 112 bpm; S1/S2 normal; no murmurs/rubs/gallops; pulses intact and symmetric at radial, DP, and PT Lungs: Mild respiratory distress with labored breathing; tachypneic around 30 RPM; symmetrical chest wall expansion; bibasilar crackles in the lower lung minor bilaterally; expiratory wheeze audible without stethoscope; hacking cough ABD: Soft, NTP; BS present; no rebound/guarding; no distention MSK: no tics or fasciculations; no edema noted in the LEs b/l, nonerythematous; patient demonstrates very to wiggle toes and lift legs off the bed bilaterally with 4/5 strength Back: Point tenderness on the right thoracic/lumbar spine; lidocaine patch in place; tender to palpation wrapping around the right flank Neuro: A&Ox3; normal mood and affect; fluent speech; no focal deficits; sensation intact and symmetric in the lower extremities bilaterally Results & Data Results & Data Vital Signs (Past 12 Hours) Vital Signs Temp Pulse Pulse Resp BP Pulse Ox O2 Del Method 11/22/24 07:46 36.5 C 101 H 18 154/73 H 98 Room Air 11/22/24 07:04 94 H 16 94 Room Air 11/22/24 04:18 36.6 C 91 H 16 146/72 H 95 Room Air 11/22/24 02:12 93 H 18 96 Room Air 11/21/24 23:29 36.7 C 82 16 137/72 95 Room Air 11/21/24 22:56 89 11/21/24 22:25 96 H 11/21/24 21:20 Room Air 11/21/24 21:20 36.5 C 97 H 19 161/71 H 94 Room Air 11/21/24 20:34 95 H 20 149/70 H 95 Room Air 11/21/24 20:24 93 H 17 95 Room Air (1) Leukopenia Leukopenia type: unspecified Qualified Code(s): D72.819 - Decreased white blood cell count, unspecified
[2024-11-22] MEDS: FERROUS GLUCONATE 324 MG TAB PO SCH (08:37)
[2024-11-22] MEDS: CETIRIZINE HCL 10 MG TABLET PO SCH (08:37)
[2024-11-22] MEDS: ASPIRIN 81 MG ECTAB PO SCH (08:37)
[2024-11-22] MEDS: MAGNESIUM OXIDE 400 MG TAB PO SCH (08:37)
[2024-11-22] MEDS: METOPROLOL SUCC 25MG EXT REL TAB PO SCH (08:38)
[2024-11-22] MEDS: hydroCHLOROthiazide 25 MG TAB PO SCH (08:38)
[2024-11-22] MEDS: PANTOprazole 40 MG TAB PO SCH (08:38)
[2024-11-22] MEDS: VALSARTAN 80 MG TAB PO SCH (08:39)
[2024-11-22] MEDS: oxyCODONE HCL IR 5 MG TAB (IMMEDIATE RELEASE) PO PRN (12:35)
[2024-11-22 12:36] LABS: Procalcitonin 0.14 ng/ml (0-0.5)
[2024-11-22 13:17] LABS: Lyme Screen Rflx Confirmation Negative (Negative)
[2024-11-22] MEDS: predniSONE 10 MG TABLET PO STA (15:30)
[2024-11-22] MEDS: cefTRIAXone SODIUM 2,000 MG/50 ML BAG IV SCH (17:35)
[2024-11-23 05:55] LABS: Basophils # (auto) 0.01 K/uL (0.00-0.20); Basophils % (auto) 0.2 %; Eosinophils # (auto) 0.04 K/uL (0.00-0.50); Hematocrit (blood only) 26.7 % (37.0-47.0); Hemoglobin 8.6 g/dl (12.0-16.0); Immature Granulocytes # (auto) 0.01 K/uL (0.01-0.20); Immature Granulocytes % (auto) 0.2 %; Lymphocytes # (auto) 0.77 K/uL (1.20-3.40); Lymphocytes % (auto) 18.4 %; Mean Corpuscular Hemoglobin 28.6 pg (25.0-34.0); Mean Corpuscular Hgb Conc 32.2 g/dL (32.0-36.0); Mean Corpuscular Volume 88.7 fL (80.0-100.0); Mean Platelet Volume 9.3 fL (9.4-12.4); Monocytes # (auto) 0.26 K/uL (0.11-0.59); Monocytes % (auto) 6.2 %; Platelet Count 202 K/uL (130-400); RDW Coefficient of Variation 14.2 % (11.5-14.5); RDW Standard Deviation 45.9 fL (36.4-46.3); Red Blood Count 3.01 M/uL (4.20-5.40); White Blood Count 4.19 K/ul (4.8-10.8)
[2024-11-23 06:11] LABS: Albumin Globulin Ratio 0.9 (0.9-2); BUN Creatinine Ratio 19.1 (10-20); Bilirubin,Total 0.5 mg/dl (0.2-1.0); Calcium 9.7 mg/dl (8.6-10.3); Globulin 3.9 gm/dl (2.5-4.0); Potassium 4.7 mmol/L (3.5-5.1); Total Protein 7.3 gm/dl (6.0-8.3)
--- NOTE | 2024-11-23 08:01 | Hospitalist Progress Note ---
Date of Service November 23, 2024 Assessment & Plan (1) Leukopenia: (2) UTI (urinary tract infection): (3) Upper respiratory infection: Plan Patient is a 68yo female with recent h/o MSSA septicemia d/t R pyelonephritis at [facility] in September 2024 who presented on 11/21 for worsening URI symptoms. #URI -Currently on room air -CXR without acute findings -Covid , FLU and RSV negative -CTA with no acute abnormalities -IS, flutter valve -Guaifenesin 1200 mg p.o. BID for cough -Scheduled 3 mL albuterol neb Q6R -Hypertonic 7% saline nebs BID -Continue Pulse Oximetry. -Oxygen as needed -Prednisone 40mg for 5 days -Will continue supportive measures for now #UTI #H/O Kidney stones - Has ongoing burning with urination and flank pain -UTI dx on 11/18; started on Levaquin -UCx on 11/18 growing pansensitive Klebsiella; repeat UA/UCx -A/P CT without contrast did not reveal acute findings - Preliminary Blood culture with no growth, final culture reports pending -Ceftriaxone 2000 mg IV q24h #Wound in left flank in the back -Wound consultation - Small mildly tender wound in the setting of Leucopenia, Initial test for tick is negative #Recent MSSA septicemia infection Noted; h/o sepsis secondary to right pyelonephritis + left lower abdominal/pannus infection at [facility] at the beginning of September 2024 Per ID note 10/06 -- / bottle positive blood culture with MSSA; FAYE on 10/04/2024 showed no evidence of IE or vegetations Discharged on PICC line + cefazolin x 4 weeks (10/01 to 10/28) and rifampin 300mg p.o. BID, which was d/c'd per ID recommendation; MSSA bacteremia of unclear etiology but presence of prosthetic joint warranted 4 weeks of antibiotics; no evidence of hardware infection #Lumbar radiculopathy Chronic/unchanged from discharge on 10/06 for [facility], per patient; no reported fevers at home MRI lumbar spine w/wo contrast on revealed multilevel degenerative changes, most prominent L2-3 with severe spinal stenosis; no evidence of spinal infection at that time However, if no improvement in symptoms, will need to consider repeating lumbar spine MRI based on recent history Hold hydrocodone-acetaminophen tablets as this could be suppressing fever curve Oxycodone 5mg q6h as needed for pain 6-10 Lidocaine patch application daily Miralax PRN #Ambulatory dysfunction PT/OT evaluations appreciated Fall precautions #T2DM Last A1c at 6.2% on 09/19/2024 Hold metformin, glimepiride, Trulicity Patient normally on Lantus 20u QPM Dose reduce to Lantus 15u QPM while inpatient SSI; with target BSG range 110-140mg/dL, CF 40, carb ratio 13 T2DM diet BSG ACHS Adjust regimen as needed #Iron deficiency anemia Hgb 9.5 on arrival No active bleeding Continue iron supplements Trend CBC #HLD - Continue statin #HTN - Continue metoprolol, valsartan #GERD - Continue PPI #Depression/anxiety - Continue buspirone, duloxetine [facility] Lovenox 40mg SQ q12h Admission and Anticipated Discharge Date Admission Date: November 21, 2024 Supervising Physician Co-Signing Physician Notes I personally examined the patient and verified alvarenga points of history and exam, discussed case, and agree with decision making and plan documented by Dr. Clinton. Patient with improvement of wheezing with prednisone. Has been doing well with nebulizer treatments, may require prescription on discharge. Transition to PO antibiotics tomorrow. Subjective Overnight events: No any Ongoing symptoms: Clinically getting better. She mentioned Shortness on breath and URI symptoms are getting better. Clinically improving overall New concerns:no any Review of Systems Review of Systems: As per HPI Physical Exam Physical Exam: General: Mild respiratory distress; pleasant affect; non-toxic appearing; well- nourished; cooperative; SpO2 100% on RA HEENT: normocephalic, atraumatic; no scleral icterus; PERRLA; vision and hearing intact Neck: supple; no lymphadenopathy; trachea midline Skin: warm, dry without signs of tenting; no cyanosis; no rashes, bruising, lesions, or erythema noted CV: chest wall NTP; RR, tachycardic at 112 bpm; S1/S2 normal; no murmurs/rubs/gallops; pulses intact and symmetric at radial, DP, and PT Lungs: Mild respiratory distress with labored breathing; tachypneic around 30 RPM; symmetrical chest wall expansion; bibasilar crackles in the lower lung minor bilaterally; expiratory wheeze audible without stethoscope; hacking cough ABD: Soft, NTP; BS present; no rebound/guarding; no distention MSK: no tics or fasciculations; no edema noted in the LEs b/l, nonerythematous; patient demonstrates very to wiggle toes and lift legs off the bed bilaterally with 4/5 strength Back: Point tenderness on the right thoracic/lumbar spine; lidocaine patch in place; tender to palpation wrapping around the right flank Neuro: A&Ox3; normal mood and affect; fluent speech; no focal deficits; sensation intact and symmetric in the lower extremities bilaterally Results & Data Results & Data Vital Signs (Past 12 Hours) Vital Signs Temp Pulse Pulse Resp BP Pulse Ox O2 Del Method 11/23/24 07:12 92 H 17 94 Room Air 11/23/24 02:35 36.5 C 108 H 18 149/75 H 93 Room Air 11/23/24 00:15 36.8 C 93 H 16 159/72 H 94 Room Air 11/22/24 23:23 95 H 11/22/24 21:41 Room Air (1) Leukopenia Leukopenia type: unspecified Qualified Code(s): D72.819 - Decreased white blood cell count, unspecified
[2024-11-23] MEDS: predniSONE 20 MG TAB PO SCH (09:45)
--- NOTE | 2024-11-23 15:00 | Electrocardiogram Report ---
Test Reason : Blood Pressure : */* mmHG Vent. Rate : 112 BPM Atrial Rate : 112 BPM P-R Int : 194 ms QRS Dur : 78 ms QT Int : 310 ms P-R-T Axes : 62 85 49 degrees QTcB Int : 423 ms Sinus tachycardia Otherwise normal ECG When compared with ECG of 02-May-2021 10:03, Criteria for Septal infarct are no longer Present Confirmed by Andrew Knowles ([id number]) on 11/23/2024 2:59:40 PM Referred By: Confirmed By: Andrew Knowles
[2024-11-24 07:14] LABS: Creatinine Clr Calc Pharmacy 92.5 ml/min
[2024-11-24] MEDS: ALBUT/IPRATROP 3MG/0.5MG NEB 3 ML VIAL INH PRN (07:27)
--- NOTE | 2024-11-24 07:51 | Hospitalist Progress Note ---
Date of Service November 24, 2024 Assessment & Plan (1) Leukopenia: (2) UTI (urinary tract infection): (3) Upper respiratory infection: Plan Patient is a 68yo female with recent h/o MSSA septicemia d/t R pyelonephritis at [facility] in September 2024 who presented on 11/21 for worsening URI symptoms. #URI -Currently on room air -CXR without acute findings -Covid , FLU and RSV negative -CTA with no acute abnormalities -IS, flutter valve -Guaifenesin 1200 mg p.o. BID for cough -Scheduled 3 mL albuterol neb Q6R -Hypertonic 7% saline nebs BID -Continue Pulse Oximetry. -Oxygen as needed -Prednisone 40mg for 5 days -Will continue supportive measures for now #UTI #H/O Kidney stones - Has ongoing burning with urination and flank pain -UTI dx on 11/18; started on Levaquin -UCx on 11/18 growing pansensitive Klebsiella; repeat UA/UCx -A/P CT without contrast did not reveal acute findings - Preliminary Blood culture with no growth, final culture reports pending -Ceftriaxone 2000 mg IV q24h #Wound in left flank in the back -Wound consultation - Small mildly tender wound in the setting of Leucopenia, Initial test for tick is negative #Recent MSSA septicemia infection Noted; h/o sepsis secondary to right pyelonephritis + left lower abdominal/pannus infection at [facility] at the beginning of September 2024 Per ID note 10/06 -- / bottle positive blood culture with MSSA; FAYE on 10/04/2024 showed no evidence of IE or vegetations Discharged on PICC line + cefazolin x 4 weeks (10/01 to 10/28) and rifampin 300mg p.o. BID, which was d/c'd per ID recommendation; MSSA bacteremia of unclear etiology but presence of prosthetic joint warranted 4 weeks of antibiotics; no evidence of hardware infection #Lumbar [place]opathy [place]unchanged from [place] [facility]; no reported fevers at home MRI lumbar spine w/wo contrast on revealed multilevel degenerative changes, most prominent L2-3 with severe spinal stenosis; no evidence of spinal infection at that time However, if no improvement in symptoms, will need to consider repeating lumbar spine MRI based on recent history Hold hydrocodone-acetaminophen tablets as this could be suppressing fever curve Oxycodone 5mg q6h as needed for pain 6-10 Lidocaine patch application daily Miralax PRN #Ambulatory dysfunction PT/OT evaluations appreciated Fall precautions #T2DM Last A1c at 6.2% on 09/19/2024 Hold metformin, glimepiride, Trulicity Patient normally on Lantus 20u QPM Dose reduce to Lantus 15u QPM while inpatient SSI; with target BSG range 110-140mg/dL, CF 40, carb ratio 13 T2DM diet BSG ACHS Adjust regimen as needed #Iron deficiency anemia Hgb 9.5 on arrival No active bleeding Continue iron supplements Trend CBC #HLD - Continue statin #HTN - Continue metoprolol, valsartan #GERD - Continue PPI #Depression/anxiety - Continue buspirone, duloxetine Disposition: Admit to [facility] telemetry DVT PPx: Lovenox 40mg SQ q12h Admission and Anticipated Discharge Date Admission Date: November 21, 2024 Subjective Overnight events: No any Ongoing symptoms: Clinically getting better. She mentioned Shortness on breath and URI symptoms are getting better. Clinically improving overall New concerns:no any Review of Systems Review of Systems: As per HPI Physical Exam Physical Exam: General: Mild respiratory distress; pleasant affect; non-toxic appearing; well- nourished; cooperative; SpO2 100% on RA HEENT: normocephalic, atraumatic; no scleral icterus; PERRLA; vision and hearing intact Neck: supple; no lymphadenopathy; trachea midline Skin: warm, dry without signs of tenting; no cyanosis; no rashes, bruising, lesions, or erythema noted CV: chest wall NTP; RR, tachycardic at 112 bpm; S1/S2 normal; no murmurs/rubs/gallops; pulses intact and symmetric at radial, DP, and PT Lungs: Mild respiratory distress with labored breathing; tachypneic around 30 RPM; symmetrical chest wall expansion; bibasilar crackles in the lower lung minor bilaterally; expiratory wheeze audible without stethoscope; hacking cough ABD: Soft, NTP; BS present; no rebound/guarding; no distention MSK: no tics or fasciculations; no edema noted in the LEs b/l, nonerythematous; patient demonstrates very to wiggle toes and lift legs off the bed bilaterally with 4/5 strength Back: Point tenderness on the right thoracic/lumbar spine; lidocaine patch in place; tender to palpation wrapping around the right flank Neuro: A&Ox3; normal mood and affect; fluent speech; no focal deficits; sensation intact and symmetric in the lower extremities bilaterally Results & Data Results & Data Vital Signs (Past 12 Hours) Vital Signs Temp Pulse Pulse Resp BP Pulse Ox O2 Del Method 11/24/24 07:28 88 16 94 Room Air 11/24/24 03:35 36.6 C 79 18 132/72 92 Room Air 11/24/24 01:15 Room Air 11/24/24 01:14 90 11/23/24 23:00 36.7 C 91 H 18 154/84 H 96 Room Air 11/23/24 20:45 36.7 C 94 H 16 136/70 93 Room Air (1) Leukopenia Leukopenia type: unspecified Qualified Code(s): D72.819 - Decreased white blood cell count, unspecified
[2024-11-24 08:02] VITALS: BP 134/77; TEMP 98.4
[2024-11-24] MEDS: ALBUTEROL HFA 8 GM INHALER INH ONE (11:27)
[2024-11-24 11:31] VITALS: PULSE 97; RESP 16; O2SAT 94
--- NOTE | 2024-11-24 16:43 | Discharge Summary ---
Date of Service November 24, 2024 Admission HPI Per Admitting Provider Mrs. Camarillo is a 68yo female with PMHx of T2DM, MSSA septicemia, liver cirrhosis, depression, HTN, lumbar radiculopathy, and SHY. She presented on 11/21 for worsening URI symptoms x 1 week [employer]. Normally she ambulates without assist devices, but reports that she could barely get out of bed this morning due to severe POLANCO. She is now experiencing both SOB at rest and with exertion. Productive cough (yellowish at times, but occasionally clear). No hemoptysis. She does endorse pleuritic chest pain yesterday, but this resolved today. No prior history of asthma or COPD. She did see her PCP on Saturday 11/18 and was prescribed Levaquin for a UTI. She then touch base with her PCP again today, and was sent in for tachycardia and right flank pain (given her history of kidney stones as well as pyelonephritis). Recent hospitalization at the beginning of September 2024 at [facility] for MSSA septicemia secondary to right pyelonephritis. Patient is currently taking hydrocodone tablets every 6 hours as needed for her lower back pain. She also uses lidocaine patches. Patient took her regular morning medicine today, only recent change in medication was that she was started on Levaquin this week. She manages her own medicine at home. No supplemental oxygen at baseline. No CPAP at night. No sick contacts. She is not currently on blood thinners. She denies prior history of DVT/PE; no recent injuries to her legs. However, she does have history of peripheral tunnel surgery in the right leg due to bone spurs; note this was years ago. No prior history of heart failure. Patient denies smoking, tobacco use, recent alcohol use. Patient is tachycardic at 112 bpm, and tachypneic at 36 RPM at time of admission. ED Course: Albuterol 5mg neb x 1 Albuterol 2.5mg neb x 1 ROS: Patient endorses night-sweats, body aches, wheezing, productive cough (yellow/clear sputum), lower back pain (chronic), chest palpitations, pleuritic CP (resolved yesterday), nausea from lower back pain and pain in the right flank, burning with urination, Patient unsure of blood in urine; unsure of change in color/smell of urine Patient denies fever, chills, chest pain, hemoptysis, abdominal pain, diarrhea, blood in stool, numbness/tingling in the arms or legs, or pain/swelling/erythema in the legs. Admission Exam Per Admitting Provider Physical Exam: General: Mild respiratory distress; pleasant affect; non-toxic appearing; well- nourished; cooperative; SpO2 100% on RA HEENT: normocephalic, atraumatic; no scleral icterus; PERRLA; vision and hearing intact Neck: supple; no lymphadenopathy; trachea midline Skin: warm, dry without signs of tenting; no cyanosis; no rashes, bruising, lesions, or erythema noted CV: chest wall NTP; RR, tachycardic at 112 bpm; S1/S2 normal; no murmurs/rubs/gallops; pulses intact and symmetric at radial, DP, and PT Lungs: Mild respiratory distress with labored breathing; tachypneic around 30 RPM; symmetrical chest wall expansion; bibasilar crackles in the lower lung minor bilaterally; expiratory wheeze audible without stethoscope; hacking cough ABD: Soft, NTP; BS present; no rebound/guarding; no distention MSK: no tics or fasciculations; no edema noted in the LEs b/l, nonerythematous; patient demonstrates very to wiggle toes and lift legs off the bed bilaterally with 4/5 strength Back: Point tenderness on the right thoracic/lumbar spine; lidocaine patch in place; tender to palpation wrapping around the right flank Neuro: A&Ox3; normal mood and affect; fluent speech; no focal deficits; sensation intact and symmetric in the lower extremities bilaterally Results & Data Results & Data Principal Diagnosis 1. URI 2. UTI 3. H/o recent MSSA infection 4. Ambulatory dysfunction Discharge Exam General: Mild respiratory distress; pleasant affect; non-toxic appearing; well- nourished; cooperative; SpO2 100% on RA HEENT: normocephalic, atraumatic; no scleral icterus; PERRLA; vision and hearing intact Neck: supple; no lymphadenopathy; trachea midline Skin: warm, dry without signs of tenting; no cyanosis; no rashes, bruising, lesions, or erythema noted CV: chest wall NTP; RR, tachycardic at 112 bpm; S1/S2 normal; no murmurs/rubs/gallops; pulses intact and symmetric at radial, DP, and PT Lungs: Mild respiratory distress with labored breathing; tachypneic around 30 RPM; symmetrical chest wall expansion; bibasilar crackles in the lower lung minor bilaterally; expiratory wheeze audible without stethoscope; hacking cough ABD: Soft, NTP; BS present; no rebound/guarding; no distention MSK: no tics or fasciculations; no edema noted in the LEs b/l, nonerythematous; patient demonstrates very to wiggle toes and lift legs off the bed bilaterally with 4/5 strength Back: Point tenderness on the right thoracic/lumbar spine; lidocaine patch in place; tender to palpation wrapping around the right flank Neuro: A&Ox3; normal mood and affect; fluent speech; no focal deficits; sensation intact and symmetric in the lower extremities bilaterally Discharge Data Allergies Allergy/AdvReac Type Severity Reaction Status Date / Time Sulfa (Sulfonamide Allergy Severe Anaphylaxis Verified 11/21/24 09:48 Antibiotics) meclizine Allergy Intermediate Headache Verified 11/21/24 09:48 acetaminophen [From Percocet] AdvReac Mild N/V Verified 11/21/24 09:48 oxycodone [From Percocet] AdvReac Mild Nausea Verified 11/21/24 09:48 Consultations 11/21/24 13:46 ED Decision to Admit Stat Ordered Studies 11/21/24 14:35 CT Abd and Pelvis [CT abd pelvis wo con] Stat CT angio chest PE protocol Stat Hospital Course (1) Leukopenia: (2) UTI (urinary tract infection): (3) Upper respiratory infection: Plan Patient is a 68yo female with recent h/o MSSA septicemia d/t R pyelonephritis at [facility] in September 2024 who presented on 11/21 for worsening URI symptoms. #URI -Currently on room air -CXR without acute findings -Covid , FLU and RSV negative -CTA with no acute abnormalities -Continue Prednisone for total of 5 days; Mucinex as needed for cough and other supportive measures #UTI #H/O Kidney stones - Has ongoing burning with urination and flank pain -UTI dx on 11/18; started on Levaquin -UCx on 11/18 growing pansensitive Klebsiella; repeat UA/UCx -A/P CT without contrast did not reveal acute findings - Preliminary Blood culture with no growth, final culture reports pending -Ceftriaxone on hospital stay. Will switch to Cefpodoxime on discharge #Recent MSSA septicemia infection Noted; h/o sepsis secondary to right pyelonephritis + left lower abdominal/pannus infection at [facility] at the beginning of September 2024 Per ID note 10/06 -- 09/02 bottle positive blood culture with MSSA; FAYE on 10/04/2024 showed no evidence of IE or vegetations Discharged on PICC line + cefazolin x 4 weeks (10/01 to 10/28) and rifampin 300mg p.o. BID, which was d/c'd per ID recommendation; MSSA bacteremia of unclear etiology but presence of prosthetic joint warranted 4 weeks of antibiotics; no evidence of hardware infection #Lumbar radiculopathy Chronic/unchanged from discharge on 10/06 for [facility], per patient; no reported fevers at home MRI lumbar spine w/wo contrast on revealed multilevel degenerative changes, most prominent L2-3 with severe spinal stenosis; no evidence of spinal infection at that time However, if no improvement in symptoms, will need to consider repeating lumbar spine MRI based on recent history Hold hydrocodone-acetaminophen tablets as this could be suppressing fever curve Oxycodone 5mg q6h as needed for pain 6-10 Lidocaine patch application daily Miralax PRN #Ambulatory dysfunction PT/OT evaluations appreciated #T2DM Last A1c at 6.2% on 09/19/2024 Resume home meds on discharge #Iron deficiency anemia Hgb 9.5 on arrival No active bleeding Continue iron supplements Followup CBC in the outpatient #HLD - Continue statin #HTN - Continue metoprolol, valsartan #GERD - Continue PPI #Depression/anxiety - Continue buspirone, duloxetine Total Time Total Time Spent Total Time Spent (In Minutes): See attending attestation Discharge Plan Discharge Items Patient Disposition: Home - Self-Care Reason For Visit: URI, UTI Discharge Diagnosis: 1. URI 2. UTI 3. H/o recent MSSA infection 4. Ambulatory dysfunction Condition on Discharge: Fair Activity: Resume your previous activity Non-emergency contact: Primary Care Provider Call non-emergency contact if: you have any medication questions, your symptoms worsen and you have a fever Follow-up/Referrals: Steve Pierre MD [Primary Care Provider] - 11/29/24 11:00 am Diet: Regular Addtl Attending Provider Instructions: You were admitted to the hospital for worsening of your upper respiratory symptoms. You were treated with steroids, albuterol other supportive measures and your symptoms continued to improve. Please continue Prednisone daily for 3 more days starting tomorrow. You were also found to have urinary Tract Infection. We started on IV Ceftriaxone. We have switched IV Ceftriaxone to oral Cefpodoxime. Please continue to take Cefpodoxime for 2 more days starting tomorrow. Continue supportive measures at home. Drink plenty of water and rest as possible. A discharge summary will be sent to your primary care physician to ensure continuity of care. Please bring this discharge summary with you to your next office appointment so that your provider can review it at that time. Follow-up appointments: Make a follow-up appointment with your PCP within the next week. It is very important that you follow up with them shortly after discharge from the hospital. Keep all your follow-up appointments as already scheduled. If you cannot make an appointment, notify your provider. Medications: Your medication list has been reviewed and reconciled upon discharge to ensure accuracy and continuity of care. An updated list of all your medications is included with your hospital discharge paperwork. Please review this list closely, and make note of any changes. - We sent a new medication called Prednisone to your pharmacy. Take Prednisone one tab daily for 3 more days - We sent a new medication called Cefpodoxime to your pharmacy. Take Cefpodo tray 1 tab PO BID for 2 days If you have any issues filling these prescriptions, please call [phone] and ask to leave a message for Dr. Isrrael Clinton Take your medications as instructed; do not skip a dose of your medicines. Make sure all of your doctors know every medicine you are taking (including vqni-iwg-lyindim medicines, vitamins, and supplements). Call your primary care provider before taking any new medicines (including overthe- counter medicines, vitamins, and supplements), because some of these may interact with your current medications, or may make your symptoms worse. Tell your primary care provider if you cannot afford your medications. CONTACT YOUR PRIMARY CARE PROVIDER if you experience any of the following: High grade fever, difficulty in breathing Worsening of your symptoms Difficulty following your treatment plan, or difficulty taking medications CALL 911 OR GO TO THE EMERGENCY DEPARTMENT if you experience any of the following: Sudden, severe abdominal pain or nausea/vomiting Severe chest pain, or chest pain that radiates (moves) to your jaw or arm Sudden, severe shortness of breath or difficulty breathing Thank you for allowing us to participate in your care. . Pending Studies at Discharge: No Stand-Alone Forms: My [facility], Smoking Cessation Medications and DC Order Prescriptions: New prednisone 20 mg Tablet 40 mg PO DAILY 3 Days Qty: 6 0RF guaifenesin [Mucinex] 600 mg Tablet Extended Release 12hr 1,200 mg PO BID PRN (Reason: cough) 3 Days Qty: 7 0RF cefpodoxime 100 mg tablet 100 mg PO BID 2 Days Qty: 4 0RF Rx Instructions: must administer with a meal/food Continued (DME) pen needle, diabetic [BD Ultra-Fine Skylar Pen Needle] 32 gauge x 5/32" needle See Rx Instructions .Route Qty: 100 2RF Rx Instructions: As directed to inject insulin once a day but twice on thursday ascorbic acid (vitamin C) 250 mg tablet 250 mg PO BID Qty: 180 3RF Rx Instructions: 11/20-otc unable to verify metformin 1,000 mg tablet 1,000 mg PO BID Qty: 180 3RF (DME) lancets [OneTouch UltraSoft 2 Lancet] 30 gauge misc See Rx Instructions .Route Qty: 300 3RF Rx Instructions: tid as directed. triamcinolone acetonide 0.1 % cream 1 applic topical BID PRN (Reason: itching) Qty: 80 5RF magnesium oxide [MagOx] 400 mg (241.3 mg magnesium) tablet 400 mg PO DAILY Rx Instructions: 11/20-otc unable to verify valsartan-hydrochlorothiazide 320-25 mg tablet 1 tab PO QAM Qty: 90 3RF omeprazole 40 mg capsule,delayed release(DR/EC) 40 mg PO QAM Qty: 90 3RF potassium chloride 10 mEq capsule, extended release 20 meq PO BID Qty: 360 3RF Hold Instructions: Home Medication placed on hold at Doctor's office lovastatin 40 mg tablet 40 mg PO HS Qty: 90 3RF glimepiride 4 mg tablet 4 mg PO .COMPLEX Qty: 180 3RF Rx Instructions: 4 mg orally 1 with breakfast and 1/2 at supper; take prior to breakfast and supper. hydrocodone-acetaminophen 7.5-325 mg tablet 1 tab PO Q6H PRN (Reason: pain) Qty: 120 0RF mirtazapine 45 mg tablet 45 mg PO QPM Qty: 90 3RF (DME) OneTouch Ultra Test Strip See Rx Instructions .Route Qty: 100 3RF Rx Instructions: As directed to test sugar two times a day; dx E11.9 metoprolol succinate 25 mg tablet extended release 24 hr 25 mg PO QAM Qty: 90 3RF Rx Instructions: for heart rate and blood pressure. nitroglycerin 0.4 mg tablet, sublingual 0.4 mg sublingual Q5M PRN (Reason: chest pain) Qty: 25 0RF Rx Instructions: 11/20-no fill history unable to verify do not exceed 3 doses per episode cetirizine 10 mg tablet 10 mg PO QAM Rx Instructions: 11/20-otc unable to verify buspirone 15 mg tablet 15 mg PO BID Qty: 180 3RF Rx Instructions: for anxiousness Vitamin B-12 50 mcg Tablet 1,000 mcg PO QAM Rx Instructions: 11/20-otc unable to verify melatonin 10 mg Tablet 10 mg PO HS Rx Instructions: 11/20-otc unable to verify aspirin 81 mg Capsule 81 mg PO QAM Hold Instructions: Resume on 07/12/24. Rx Instructions: 11/20-otc unable to verify mupirocin 2 % ointment 1 applic topical UD Rx Instructions: original:1 applic topical bid. APPLY TO AFFECTED NOSTRIL TWICE DAILY FOR 2 WEEKS last filled 09/22/24 14 day supply duloxetine 60 mg capsule,delayed release(DR/EC) 60 mg PO UD Rx Instructions: original:60mg po bid. For pain and mood last filled 06/22/24 71 day supply ferrous gluconate 324 mg (38 mg iron) tablet 324 mg PO UD Rx Instructions: original:324mg po bid last filled 11/25/23 90 day supply insulin glargine [Lantus Solostar U-100 Insulin] 100 unit/mL (3 mL) insulin pen 20 unit subcut UD Rx Instructions: original:20u subcut qam. as directed 11/21-no fill history unable to verify Trulicity 4.5 mg/0.5 mL pen injector 4.5 mg subcut UD Rx Instructions: original: 4.5mg subcut weekly 11/21-no fill history unable to verify fluticasone propionate 50 mcg/actuation spray,suspension 2 spray intranasal UD PRN (Reason: allergies) Hold Instructions: Resume on 07/19/24. Rx Instructions: 2 Sprays each nostril twice a day for three days then reduce to two sprays each nostril at bedtime thereafter; 11/20-otc unable to verify vitamin B complex Capsule 1 cap PO QAM Rx Instructions: 11/20-otc unable to verify docusate sodium [Stool Softener] 100 mg Capsule 100 mg PO HS Rx Instructions: 11/20-otc unable to verify cholecalciferol (vitamin D3) [Vitamin D3] 125 mcg (5,000 unit) Tablet 125 mcg PO QAM Rx Instructions: 11/20-otc unable to verify Discontinued heparin lock flush (porcine) 10 unit/mL solution 50 unit IV TID Rx Instructions: original:50 u IV TID. administer after IV drug administration as part of [facility] protocol 11/21-unable to verify levofloxacin 750 mg tablet 750 mg PO DAILY 7 Days Qty: 7 0RF Discharge Orders: Discharge Order (Routine); Ordered 11/24/24 Ordered By: Isrrael Clinton Admission Data Admit Date/Time: 11/21/24 14:43 Attending Provider: Benita Chakraborty Admit Provider: Brian Fabian Primary Care Provider: Steve Pierre Other Providers: Brian Fabian; [facility],Home Healthcare; [facility],Referral Center Other Interventions: Discharge Summary Assessment (RN) Last Done: 11/24/24 11:18 Supervising Physician Co-Signing Physician Notes I personally examined the patient and verified alvarenga points of history and exam, discussed case, and agree with decision making and plan documented by Dr. Clinton. Patient with improvement of wheezing with prednisone. Has been doing well with nebulizer treatments, may require prescription on discharge. Transition to PO antibiotics tomorrow. Patient is a 68-year-old female with past medical history pertinent for unspecified asthma, allergies, type 2 diabetes, hypertension, hyperlipidemia, iron deficiency anemia, and recent MSSA septicemia infection on admission for asthma exacerbation in setting of URI as well as UTI. Patient had improvement of respiratory symptoms with prednisone and nebulizer therapies. She remained on room air. UTI treated with ceftriaxone, patient discharged on cefpodoxime to complete course. Patient was discharged home with an albuterol inhaler, she was instructed on how to use this properly, discussed likely reactive airway disease contributing to respiratory symptoms. Discussed with patient follow-up with PCP. Patient may benefit from PFT testing outpatient. Total attending time 36 minutes Resident Activity Tracking Resident Involvement: Resident Care Provided Care Provided: Adult [facility] Medicine
[2024-11-26 20:47] LABS: Babesia microti DNA Not Detected (Not Detected)
[2024-11-27 20:07] LABS: Q Fever IgG, Phase I NEGATIVE; Q Fever Phase I IgM Antibody NEGATIVE; Q Fever Phase II IgG Antibody NEGATIVE; Q Fever Phase II IgM Antibody NEGATIVE; R. typhi IgG Ab NOT DETECTED; R. typhi IgM Ab NOT DETECTED; RMSF IgG Ab NOT DETECTED; RMSF IgM Ab NOT DETECTED
== END 2024-11-24 13:17 | disposition home or self-care (01) | DRG 153 ==
LOC: SUATTDRO → ED 11:24 → EDINP 14:43 → INTOOBSV 14:43 → SUATTDRO 14:43 → 2W 17:50